=== PATIENT | female | born 1940 | race Caucasian/White ===

== ENCOUNTER → 2016-10-18 | Outpatient (CLI) | payer OTHER ==
[~2016-10-18] MED LIST: ALBU1AER9 INH; ATRINS NEB; ATV/1 PO; ATVUNK PO; AZITTAB PO; CLR10 PO; COLE1TAB PO; FERR1TAB13 PO; FERR325T51 PO; FLVHFA110 INH; FOLI400T18 PO; HYDR-4079 PO; LEVO112T4 PO; LPR25 PO; MAGN500C PO; METH500T37 PO; METO-217 PO; METO50TA16 PO; METO50TA17 PO; MOME1AER5 INH; ONDA4TAB46 PO; OXGN; PANT1TAB48 PO; POTA-331 PO; POTA10CA28 PO; PRAM0.129 PO; PRAM1TAB52 PO; QUET1TAB30 PO; TIZA2CAP PO; TORS10TA14 PO; ULT50X PO; XRL20 PO; [UNRECOGNIZED DRUG - CODE] PO
--- NOTE | 2016-10-18 11:05 | DIAGNOSTIC IMAGING REPORT ---
THYROID ULTRASONOGRAPHY CLINICAL HISTORY: DYSPHAGIA COMPARISON STUDY: 02/19/2012 FINDINGS: The patient is status post a right lobe thyroidectomy. No residual thyroid tissue is visualized. The left lobe measures 3.9 x 1.5 x 1.1 cm. No left-sided thyroid nodules are visualized. IMPRESSION: 1. Ultrasonographically normal left lobe of the thyroid 2. Surgically absent right lobe of the thyroid Electronically signed by: Eder Johnson M.D. 10/18/2016 11:04 AM Dictated Date/Time: 10/18/2016 11:02 AM
--- NOTE | 2016-10-18 11:38 | DIAGNOSTIC IMAGING REPORT ---
(BARIUM SWALLOW) ESOPHAGUS CLINICAL HISTORY: DYSPHAGIA COMPARISON STUDY: 05/19/2013 FLUOROSCOPY TIME: 1.2 minutes. FINDINGS: Patient is a [place] function well. No evidence for aspiration. Trace penetration. A single diverticulum relatively small. Esophageal dysmotility and spasm. Small hiatal hernia. Mild gastroesophageal reflux. IMPRESSION: 1. Small Zenker's diverticulum. 2. Mild generalized esophageal spasm and/or irritability. 3. Small hiatal hernia with mild reflux Electronically signed by: Esau Zapata M.D. 10/18/2016 11:37 AM Dictated Date/Time: 10/18/2016 11:31 AM
== END | disposition home or self-care (01) ==
LOC: C.ULTR 10:00
DX: R13.10 Dysphagia, unspecified (principal)

== ENCOUNTER → 2017-01-14 | Outpatient (CLI) | payer OTHER ==
--- NOTE | 2017-01-14 13:39 | DIAGNOSTIC IMAGING REPORT ---
ULTRASOUND BILATERAL LOWER EXTREMITY VENOUS CLINICAL HISTORY: Hypoxia. Pulmonary artery hypertension. COMPARISON STUDY: No priors. TECHNIQUE: Real-time, grayscale, and color Doppler sonography of the deep veins of the right and left lower extremity was performed from the inguinal crease to the calf. Compression and augmentation were utilized. FINDINGS: There is no sonographic evidence of deep venous thrombosis identified in the right or left lower extremity. The common femoral, superficial femoral, and popliteal veins are patent and normally compressible bilaterally. The greater saphenous vein and the profunda femoris vein at the junction with the common femoral vein are clear in both legs. The visualized calf veins are patent bilaterally. IMPRESSION: There is no sonographic evidence of deep venous thrombosis identified in the right or left lower extremity. Electronically signed by: Rudi Aguiar M.D. 01/14/2017 1:38 PM Dictated Date/Time: 01/14/2017 1:37 PM
--- NOTE | 2017-01-18 09:48 | CODING QUERY MEDICAL NECESSITY ---
SUPPORTING DIAGNOSIS NEEDED Christian SALAZAR, A supporting diagnosis is required for the test/procedure performed on this patient in order for us to be reimbursed by the patient's insurance. Please provide a supporting diagnosis for the following test/procedure listed below next to the test name along with your signature. *If there is no additional diagnosis for this patient that would support the following test/procedure please document that below next to the test/procedure. Test(s)/Procedure(s) that require a supporting diagnosis: * ([id number]) VENOUS DOPPLER LOWER EXT BILAT DIAGNOSIS: DATE OF SERVICE: 01/14/17 Provider Signature: Date: Thank you Jaime Ceballos [facility] Information Management Once completed, please kindly fax back to [phone] For questions please call [phone]
== END | disposition home or self-care (01) ==
LOC: C.ULTR 11:50
PROVIDERS: ATTEND Physician Assistant
DX: I27.2 Other secondary pulmonary hypertension (principal); Z99.81 Dependence on supplemental oxygen

== ENCOUNTER → 2017-01-17 | Outpatient (CLI) | payer OTHER ==
[~2017-01-17] MED LIST changes: +OPTIRAY 320 IV PRN
--- NOTE | 2017-01-17 14:25 | DIAGNOSTIC IMAGING REPORT ---
CT ANGIOGRAM OF THE CHEST CLINICAL HISTORY: Difficulty breathing. Shortness of breath. COMPARISON STUDY: 09/30/2015 TECHNIQUE: Following the IV administration of 93 mL of Optiray-320, CT angiogram of the thorax was performed from the thoracic inlet to the lung bases utilizing the pulmonary embolus protocol. Images are reviewed in the axial, sagittal, and coronal planes. IV contrast was administered without complication. MIP imaging was performed. CT DOSE: 570.84 mGycm FINDINGS: There is trace perihepatic fluid. There is reflux of contrast into the hepatic veins. This suggests elevated right heart pressures. There are minimally enlarged right hilar lymph nodes similar in appearance the prior study. Mediastinal lymph nodes remain the upper limits of normal in size. There is stable minimal outpouching of the lateral margin of the aortic arch. This remain stable There were no pulmonary artery filling defects to indicate acute pulmonary embolism. There is a small right pleural effusion. There are dependent right lower lobe airspace opacities, likely atelectatic. Minimal septal edema is suspected. IMPRESSION: 1. No evidence of acute pulmonary embolism 2. Prominent right hilar and mediastinal lymph nodes, unchanged from the prior study 3. Small right pleural effusion 4. Mild right basilar atelectasis 5. Suspected elevated right heart pressures Electronically signed by: Eder Johnson M.D. 01/17/2017 2:23 PM Dictated Date/Time: 01/17/2017 2:17 PM
--- NOTE | 2017-01-17 14:26 | ECHOCARDIOGRAM REPORT ---
*NOTICE TO RECEIVING [employer] This information is strictly Confidential and protected under [place] law. [place] law prohibits you from making any further disclosure of this information unless further disclosure is expressly permitted by the written consent of the person to whom it pertains or is authorized by law. A general authorization for the release of medical or other information is not sufficient for this purpose. Hospital accepts no responsibility if the information is made available to any other person, INCLUDING THE PATIENT. Interpretation Summary * Name: VANESSA PERRY Study Date: 01/17/2017 12:51 PM BP: 149/76 mmHg * Patient Location: [facility] HR: 66 * : 1940 (M/d/yyyy) Gender: Female Height: 63 in * Age: 76 yrs Ethnicity: CA Weight: 170 lb * Performed By: Aga Elizabeth RDCS * * Reason For Study: CAD, CHF, SOB * BSA: 1.8 m2 * -- Conclusions -- * 1. Normal LV size, mild concentric LVH. * 2. Low normal LV systolic function. LVEF 50-55%. Paradoxical septal motion consistent with post-op state. * 3. Grade II diastolic dysfunction. * 4. Moderately to severely dialted RV. Normal RV function. Severely dilated RA * 4. Well-seated bioprosthetic aortic valve with expected transvalvular gradients. No AI. * 5. Mild mitral regurgitation. * 6. Moderate to severe TR. * 7. Compared with prior study on 01/17/2017: RV now moderately to severely dilated. Procedure Details * A complete two-dimensional transthoracic echocardiogram was performed (2D, M-mode, Doppler and color flow Doppler). Left Ventricle * The left ventricle is grossly normal size. * There is mild concentric left ventricular hypertrophy. * Ejection Fraction = 50-55%. * Septal motion is consistent with post-operative state. Right Ventricle * The right ventricle is moderate to severely dilated. * The right ventricular systolic function is normal as assessed by tricuspid annular plane systolic excursion (TAPSE) (normal >1.5 cm). Atria * The left atrial size is normal. * The right atrium is severely dilated. * No ASD detected; PFO is not assessed. Mitral Valve * There is moderate mitral annular calcification. * Mitral stenosis is absent. * There is mild mitral regurgitation. Tricuspid Valve * The tricuspid valve is not well visualized, but is grossly normal. * There is no tricuspid stenosis. * There is moderate to severe tricuspid regurgitation. Aortic Valve * There is no significant aortic regurgitation. * There is a bioprosthetic aortic valve. * The prosthetic aortic valve is well-seated. * Bioprosthetic leaflets are not well visualized. * Normal expected transvalvular gradients. Pulmonic Valve * The pulmonary valve is inadequately visualized, but the Doppler data is adequate for interpretation. * There is no pulmonic valvular stenosis. * Trace pulmonic valvular regurgitation. Great Vessels * The aortic root and proximal ascending aorta are normal sized. Pericardium/Pleural * There is no pericardial effusion. Great Vessels * IVC < 2.1, <50% change with respiration. Est RA 8 mmHg. * There is no evidence of pulmonary hypertension. The PA systolic pressure is less than 36 mmHg. Left Ventricular Diastolic Function * Diastolic dysfunction, Grade II (pseudonormalization pattern). MMode 2D Measurements and Calculations IVSd 0.99 cm IVSs 1.5 cm LVIDd 3.5 cm LVIDs 2.6 cm LVPWd 1.3 cm LVPWs 1.7 cm IVS/LVPW 0.77 FS 27.7 % EDV(Teich) 52.6 ml ESV(Teich) 23.8 ml EF(Teich) 54.7 % EDV(cubed) 44.7 ml ESV(cubed) 16.9 ml EF(cubed) 62.2 % % IVS thick 56.5 % % LVPW thick 32.3 % LV mass(C)d 127.5 grams LV mass(C)dI 70.7 grams/m\S\2 LV mass(C)s 150.0 grams LV mass(C)sI 83.1 grams/m\S\2 SV(Teich) 28.7 ml SI(Teich) 15.9 ml/m\S\2 SV(cubed) 27.8 ml SI(cubed) 15.4 ml/m\S\2 Ao root diam 2.1 cm Ao root area 3.6 cm\S\2 LA dimension 4.0 cm LA/Ao 1.9 LVOT diam 1.9 cm LVOT area 2.9 cm\S\2 LVAd ap4 17.5 cm\S\2 LVLd ap4 6.8 cm EDV(MOD-sp4) 36.6 ml EDV(sp4-el) 38.2 ml LVAs ap4 11.0 cm\S\2 LVLs ap4 5.5 cm ESV(MOD-sp4) 19.4 ml ESV(sp4-el) 18.5 ml EF(MOD-sp4) 47.1 % EF(sp4-el) 51.7 % LVAd ap2 22.2 cm\S\2 LVLd ap2 6.9 cm EDV(MOD-sp2) 59.4 ml EDV(sp2-el) 60.9 ml LVAs ap2 14.4 cm\S\2 LVLs ap2 6.0 cm ESV(MOD-sp2) 31.1 ml ESV(sp2-el) 29.2 ml EF(MOD-sp2) 47.6 % EF(sp2-el) 52.1 % LVLd %diff 1.8 % EDV(MOD-bp) 46.6 ml LVLs %diff 7.9 % ESV(MOD-bp) 25.5 ml EF(MOD-bp) 45.4 % SV(MOD-sp4) 17.3 ml SI(MOD-sp4) 9.6 ml/m\S\2 SV(MOD-sp2) 28.3 ml SI(MOD-sp2) 15.7 ml/m\S\2 SV(MOD-bp) 21.2 ml SI(MOD-bp) 11.7 ml/m\S\2 SV(sp4-el) 19.8 ml SI(sp4-el) 10.9 ml/m\S\2 SV(sp2-el) 31.7 ml SI(sp2-el) 17.6 ml/m\S\2 Doppler Measurements and Calculations MV E max robe 115.9 cm/sec MV A max robe 77.1 cm/sec MV E/A 1.5 MV dec time 0.22 sec Ao V2 max 265.4 cm/sec Ao max PG 28.2 mmHg Ao max PG (full) 26.4 mmHg Ao V2 mean 194.9 cm/sec Ao mean PG 16.9 mmHg Ao mean PG (full) 16.1 mmHg Ao V2 VTI 67.7 cm HATTIE(I,A) 0.61 cm\S\2 HATTIE(I,D) 0.61 cm\S\2 HATTIE(V,A) 0.72 cm\S\2 HATTIE(V,D) 0.72 cm\S\2 LV V1 max PG 1.8 mmHg LV V1 mean PG 0.83 mmHg LV V1 max 67.0 cm/sec LV V1 mean 41.4 cm/sec LV V1 VTI 14.4 cm SV(Ao) 245.6 ml SI(Ao) 136.1 ml/m\S\2 SV(LVOT) 41.3 ml SI(LVOT) 22.9 ml/m\S\2 TR max robe 207.9 cm/sec
[2017-01-17 15:24] LABS: ISTAT CREATININE 0.7 mg/dl (0.6-1.3); ISTAT HEMOGLOBIN 13.6 g/dl (12.0-16.0); ISTAT IONIZED CALCIUM 1.05 mmol/l (1.12-1.32)
== END | disposition home or self-care (01) ==
LOC: C.CPL 12:39
PROVIDERS: ATTEND Physician Assistant
DX: R06.02 Shortness of breath (principal); R91.8 Other nonspecific abnormal finding of lung field; R09.02 Hypoxemia; I25.10 Atherosclerotic heart disease of native coronary artery without angina pectoris

== ENCOUNTER → 2017-03-06 | Outpatient (CLI) | payer OTHER ==
[~2017-03-06] MED LIST changes: -OPTIRAY 320 IV PRN
[2017-03-06 15:28] LABS: BASO % 0.5 %; BASO ABS # 0.03 K/uL (0-0.2); COMPLETE YES; EOS % 1.8 %; HEMATOCRIT 42.6 % (37-47); IG% 0.2 %; LYMPH % 24.6 %; LYMPH ABS # 1.35 K/uL (1.2-3.4); MEAN CELL VOLUME 86.2 fL (80-100); MEAN CORPUSCULAR HEMOGLOBIN 26.1 pg (25-34); MEAN CORPUSCULAR HGB CONC 30.3 g/dl (32-36); MONO % 17.9 %; PLATELET COUNT 233 K/uL (130-400); RED BLOOD COUNT 4.94 M/uL (4.2-5.4); WHITE BLOOD COUNT 5.48 K/uL (4.8-10.8)
[2017-03-06 15:37] LABS: ALT/SGPT 21 U/L (12-78); AST/SGOT 26 U/L (15-37); BLOOD UREA NITROGEN 13 mg/dl (7-18); CALCIUM 9.3 mg/dl (8.5-10.1); CARBON DIOXIDE 33 mmol/L (21-32); CHLORIDE 100 mmol/L (98-107); CREATININE 0.84 mg/dl (0.60-1.20); GLUCOSE 135 mg/dl (70-99); MAGNESIUM 2.1 mg/dl (1.8-2.4); POTASSIUM 3.4 mmol/L (3.5-5.1); SODIUM 138 mmol/L (136-145)
[2017-03-06 15:47] LABS: ALKALINE PHOSPHATASE 70 U/L (45-117)
== END | disposition home or self-care (01) ==
LOC: C.LABSPEC 14:49
PROVIDERS: ATTEND Family Medicine
DX: I10 Essential (primary) hypertension (principal)

== ENCOUNTER 2017-03-16 07:14 | Inpatient (IN) | payer OTHER ==
[2017-03-16] VITALS (7 sets, daily range): BP systolic 125–156; BP diastolic 82–102; PULSE 75–137; TEMP 36.8–37; O2SAT 91–98; Ht 160 cm; Wt 76.5 kg
[~2017-03-16] VITALS: Ht 160 cm; Wt 76.5 kg
[~2017-03-16 07:14] MED LIST changes: -ATV/1 PO; -COLE1TAB PO; -FERR1TAB13 PO; -FLVHFA110 INH; -METO50TA16 PO; -METO50TA17 PO; -ONDA4TAB46 PO; -POTA10CA28 PO; -PRAM1TAB52 PO; -QUET1TAB30 PO; -TIZA2CAP PO; -TORS10TA14 PO; -ULT50X PO; -XRL20 PO
[2017-03-16] MEDS ORDERED: SODIUM CHLORIDE 0.9% 1000ML 1,000 ML IV STA (07:39)
[2017-03-16] MEDS ORDERED: PROMETHAZINE HCL INJ 25 MG in SODIUM CHLORIDE 0.9% 50ML 50 ML IV STA (08:50)
--- NOTE | 2017-03-16 08:50 | DIAGNOSTIC IMAGING REPORT ---
PA CHEST RADIOGRAPH AND UPRIGHT AND SUPINE AP RADIOGRAPHS OF THE ABDOMEN CLINICAL HISTORY: Nausea, vomiting and abdominal pain. COMPARISON STUDY: Chest CT January 17, 2017. FINDINGS: There are median sternotomy wires and a prosthetic aortic valve. Mild cardiomegaly is unchanged. There is pulmonary vascular congestion. Trace right pleural effusion is present. There is no pneumothorax. No free air is present. There are cholecystectomy clips. A mildly dilated loop of small bowel with the left upper quadrant is noted, measuring 3.5 cm in caliber. IMPRESSION: 1. No free air. 2. Mildly dilated loop of small bowel with the left upper quadrant without convincing evidence for a bowel obstruction. 3. Pulmonary vascular congestion with a trace right pleural effusion. Electronically signed by: Herman Dumont M.D. 03/16/2017 8:49 AM Dictated Date/Time: 03/16/2017 8:46 AM
[2017-03-16 09:07] LABS: BASO % 0.1 %; BASO ABS # 0.01 K/uL (0-0.2); COMPLETE YES; HEMATOCRIT 48.7 % (37-47); IG% 0.2 %; LYMPH ABS # 1.28 K/uL (1.2-3.4); MEAN CELL VOLUME 82.5 fL (80-100); MEAN CORPUSCULAR HGB CONC 33.9 g/dl (32-36); MEAN PLATELET VOLUME 9.9 fL (7.4-10.4); MONO % 13.1 %; NEUT % 73.6 %; PLATELET COUNT 314 K/uL (130-400); WHITE BLOOD COUNT 9.87 K/uL (4.8-10.8)
[2017-03-16] MEDS ORDERED: FLVHFA110 INH (09:13)
[2017-03-16] MEDS ORDERED: FERR1TAB13 PO (09:13)
[2017-03-16] MEDS ORDERED: COLE1TAB PO (09:13)
[2017-03-16 09:17] LABS: BUN/CREATININE RATIO 17.8 (10-20); CALCIUM 9.8 mg/dl (8.5-10.1); CREATININE 0.67 mg/dl (0.60-1.20); POTASSIUM 2.8 mmol/L (3.5-5.1)
[2017-03-16] MEDS ORDERED: TIZA2CAP PO (09:19)
[2017-03-16] MEDS ORDERED: METO50TA16 PO (09:19)
[2017-03-16] MEDS ORDERED: POTA10CA28 PO (09:19)
[2017-03-16] MEDS ORDERED: TORS10TA14 PO (09:19)
[2017-03-16] MEDS ORDERED: PRAM1TAB52 PO (09:19)
[2017-03-16] MEDS ORDERED: ATV/1 PO (09:19)
[2017-03-16] MEDS ORDERED: ONDA4TAB46 PO (09:19)
[2017-03-16] MEDS ORDERED: METOPROLOL TARTRATE 1 MG/ML VIAL IV STA ×3 (09:26→12:13)
[2017-03-16 09:27] LABS: ALB/GLOB RATIO 0.9 (0.9-2); CKMB/CK RATIO 2.2 (0-3.0)
[2017-03-16] MEDS ORDERED: ONDANSETRON INJ 2 MG/ML 2 ML VIAL IV STA (10:14)
[2017-03-16] MEDS ORDERED: POTASSIUM CHLORIDE 10 MEQ / 100ML WTR IV STA (10:16)
--- NOTE | 2017-03-16 10:18 | EMERGENCY ROOM VISIT NOTE ---
ED Visit Note First contact with patient: 07:23 I have personally seen and evaluated the patient with the physician religious assistant. I agree with the diagnostic/management decisions and have personally been involved in these decisions and agree with the diagnosis.
[2017-03-16 10:25] LABS: URINE APPEARANCE CLEAR (CLEAR); URINE BILIRUBIN NEG (NEG); URINE COLOR YELLOW; URINE EPITHELIAL CELL AUTO >30 /lpf (0-5); URINE NITRITE NEG (NEG); URINE PH 8.5 (4.5-7.5); URINE SPECIFIC GRAVITY 1.016 (1.000-1.030); UROBILINOGEN NEG (NEG)
[2017-03-16 10:40] LABS: MANUAL MICROSCOPIC REQUIRED? NO; REVIEW REQ? YES; SULFASALICYLIC ACID POS (NEG)
--- NOTE | 2017-03-16 10:50 | DIAGNOSTIC IMAGING REPORT ---
CT OF THE HEAD WITHOUT CONTRAST CLINICAL HISTORY: Headache. Restless. Recent fall. COMPARISON STUDY: MRI of the brain October 01, 2015. CT DOSE: 638.56 mGycm TECHNIQUE: Helical axial images of the head were obtained without IV contrast. Automated exposure control was utilized for the study. A dose lowering technique was utilized adhering to the principles of ALARA. FINDINGS: No acute intracranial hemorrhage, midline shift or mass effect is present. Ventricular system is normal. Basilar cisterns are patent. There are no extra-axial collections. Extensive white matter hypodensities suggest small vessel disease. Allowing for differences in technique, this is similar to MRI of October 01, 2015. There are no findings to suggest acute dural sinus thrombosis or acute territorial infarct. There is no calvarial fracture. Visualized portions of the sinuses and mastoid air cells are clear. IMPRESSION: No acute intracranial findings. Electronically signed by: Herman Dumont M.D. 03/16/2017 10:49 AM Dictated Date/Time: 03/16/2017 10:46 AM
[2017-03-16] MEDS ORDERED: LORAZEPAM 2 MG/ML 1 ML VIAL IV STA (12:13)
[2017-03-16] MEDS ORDERED: ONDANSETRON INJ 2 MG/ML 2 ML VIAL IV PRN (13:00)
[2017-03-16] MEDS ORDERED: HydrALAZINE HCL 20 MG/ML VIAL IV PRN (13:00)
[2017-03-16] MEDS ORDERED: MAGNESIUM HYDROXIDE SUSP 30 ML UDC PO PRN (13:00)
[2017-03-16] MEDS ORDERED: ALBUT/IPRATROP 3MG/0.5MG NEB 3 ML VIAL INH PRN ×2 (13:00→13:30)
[2017-03-16] MEDS ORDERED: HYDROCODONE/ACETAMI 10/325 TAB PO PRN (13:00)
[2017-03-16] MEDS ORDERED: PROMETHAZINE HCL INJ 12.5 MG in SODIUM CHLORIDE 0.9% 50ML 50 ML IV PRN (13:00)
[2017-03-16] MEDS ORDERED: METOPROLOL TARTRATE 1 MG/ML VIAL IV PRN (13:00)
[2017-03-16] MEDS ORDERED: HALOPERIDOL LACTATE 5 MG/ML 1 ML VIAL IV STA (13:26)
[2017-03-16] MEDS ORDERED: LORAZEPAM 2 MG/ML 1 ML VIAL IV PRN ×2 (13:30)
[2017-03-16] MEDS ORDERED: HALOPERIDOL LACTATE 5 MG/ML 1 ML VIAL ONE (13:42)
--- NOTE | 2017-03-16 13:46 | History and Physical ---
History & Physical Date & Time of Service: Mar 16, 2017 at 13:36 Chief Complaint: Nausea,Vomit Primary Care Physician: Angela Barajas MD History of Present Illness 77-year-old female brought in for nausea vomiting fall increased confusion. The patient typically has an oxygen dependent COPD patient who has a history of diastolic heart failure, lupus arthritis and has multiple when necessary medications at home for pain and muscle spasm. Most recently due to a functional decline her primary care physician institute hospice therapy. This was not started planning to be started on the . The patient's daughter visited from [place] found her mother to be in the increasing confused state, lethargic, having nausea and vomiting unable to walk safely with a fall and brought into the emergency department for evaluation. In the emergency department the patient was found to have atrial fibrillation rapid ventricular response elevated troponin was confused and agitated frequently removing her oxygen and becoming hypoxic hyponatremic hypokalemic and not oriented to time. She'll be admitted to evaluate her elevated troponin encephalopathy and likely polypharmacy. 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, previous history of atrial fibrillation, COPD, pulmonary hypertension, aortic valve replacement 2010, depression, abdominal hysterectomy, cholecystectomy, Yin 's thyroiditis now with hypothyroidism Family History No pertinent family history Family history is positive or COPD and heart disease Social History Smoking Status: Former Smoker Marital Status: Housing status: lives alone Occupational Status: retired Immunizations History of Influenza Vaccine: No History of Tetanus Vaccine?: Yes History of Pneumococcal: No History of Hepatitis B Vaccine: Yes Multi-Drug Resistant Organisms History of MDRO: No Allergies Coded Allergies: Penicillins (Verified Allergy, Severe, HIVES,ANAPHYLAXIS, 03/16/17) Shellfish (Verified Allergy, Severe, DIFFICULTY SWALLOWING & HIVES, ) Clindamycin (Unverified Allergy, Unknown, UNKNOWN, 03/16/17) Pravastatin (Unverified Allergy, Unknown, UNKNOWN, 03/16/17) Rosuvastatin (Unverified Allergy, Unknown, UNKNOWN, 03/16/17) Ezetimibe (Verified Adverse Reaction, Mild, INTOLERANCE TO VYTORIN, ) Simvastatin (Verified Adverse Reaction, Mild, INTOLERANCE, 03/16/17) Home Medications Scheduled Colestipol Hcl (Colestid), 2 GM PO DAILY Ferrous Sulfate (Kp Ferrous Sulfate), 325 MG PO DAILY Fluticasone Propionate (Flovent Hfa), 1 PUFF INH BID Home O2 Therapy (Oxygen), 2 LITERS NA PRN Levothyroxine Sodium (Levothyroxine Sodium), 112 MCG PO QAM Loratadine (Claritin), 10 MG PO QAM Lorazepam (Ativan), 1 MG PO TID Magnesium Oxide (Mg Supplement (Magnesium), 500 MG PO BID Metoprolol Tartrate (Lopressor) (Lopressor), 50 MG PO BID Pantoprazole (Protonix), 40 MG PO BID Potassium Chloride (Micro-K Ext Rel), 20 MEQ PO BID Torsemide (Demadex), 5 MG PO DAILY Scheduled PRN Hydrocodone/Acetaminophen 10MG/325MG (Brogan 10MG/325MG), 1 TAB PO Q6 PRN for Pain Ipratropium [place] (Ipratropium [place]), 1 VIAL NEB QID PRN for Shortness of Breath Methocarbamol (Robaxin), 500 MG PO TID PRN for Pain Ondansetron Hcl (Zofran), 4 MG PO Q6H PRN for Nausea Pramipexole Dihydrochloride (Mirapex), 25 MG PO BID PRN for RLS Tizanidine (Zanaflex), 2 MG PO TID PRN for Muscle Spasms Torsemide (Demadex), 10-20 MG PO DAILY PRN for WEIGHT GAIN/SOB Review of Systems Review of systems unobtainable due to the patient's level of confusion, the daughter states the patient was more oriented yesterday but does have some gaps in her memory at times. When asked the patient says she has pain from her neck to her knees Physical Exam Vital Signs Date Time Temp Pulse Resp B/P (MAP) Pulse Ox O2 Delivery O2 Flow Rate FiO2 03/16/17 12:23 175/129 03/16/17 12:19 120 183/134 03/16/17 12:15 91 Nasal Cannula 3.0 03/16/17 12:14 113 19 03/16/17 12:01 183/134 03/16/17 11:44 114 20 91 03/16/17 11:30 195/137 03/16/17 11:29 180/137 03/16/17 11:14 116 17 94 03/16/17 10:49 126 194/137 03/16/17 10:48 194/137 03/16/17 10:46 140/113 03/16/17 10:14 131 16 03/16/17 10:13 117 20 140/113 95 Nasal Cannula 3.0 03/16/17 10:09 140/113 03/16/17 09:49 140 199/144 03/16/17 09:46 199/144 03/16/17 09:44 139 20 03/16/17 09:14 80 31 81 03/16/17 08:48 115 20 178/124 96 Nasal Cannula 3.0 03/16/17 08:45 178/124 03/16/17 08:14 132 30 93 03/16/17 08:08 128 18 189/130 95 Nasal Cannula 3.0 03/16/17 07:56 189/130 03/16/17 07:44 150 15 91 03/16/17 07:29 Nasal Cannula 2.0 03/16/17 07:28 37.0 120 20 175/120 95 Nasal Cannula 2.0 03/16/17 07:27 125 03/16/17 07:24 175/120 General Appearance: WD/WN, + moderate distress Head: normocephalic, atraumatic (no signs of injury from fall) Eyes: PERRL, EOMI ENT: hearing grossly normal, pharynx normal Neck: supple, trachea midline Respiratory/Chest: no respiratory distress, + decreased breath sounds Cardiovascular: + tachycardia, + irregularly irregular Abdomen/GI: normal bowel sounds, soft, + tenderness (left lower quadrant tenderness with current history of constipation) Back: normal inspection, + pertinent finding (right CVA tenderness) Extremities/Musculoskelatal: normal range of motion, + pedal edema (mild) Neurologic/Psych: alert, + depressed affect, + disoriented, + pertinent finding (appears agitated and bewildered) Skin: normal color, warm/dry, no rash Diagnostics Laboratory Results Results Past 24 Hours Test 03/16/17 07:20 03/16/17 08:05 Range/Units Urine Color YELLOW Urine Appearance CLEAR CLEAR Urine pH 8.5 4.5-7.5 Urine Specific [place] 1.016 1.000-1.030 Urine Protein 1+ NEG Urine Glucose (UA) TRACE NEG Urine Ketones 2+ NEG Urine Occult Blood 2+ NEG Urine Nitrite NEG NEG Urine Bilirubin NEG NEG Urine Urobilinogen NEG NEG Urine Leukocyte Esterase NEG NEG Urine WBC (Auto) 1-5 0-5 /hpf Urine RBC (Auto) 0-4 0-4 /hpf Urine Hyaline Casts (Auto) 1-5 0-5 /lpf Urine Epithelial Cells (Auto) >30 0-5 /lpf Urine Bacteria (Auto) NEG NEG Urine Renal Epithelial Cells 0-5 /lpf White Blood Count 9.87 4.8-10.8 K/uL Red Blood Count 5.90 4.2-5.4 M/uL Hemoglobin 16.5 12.0-16.0 g/dL Hematocrit 48.7 37-47 % Mean Corpuscular Volume 82.5 80-100 fL Mean Corpuscular Hemoglobin 28.0 25-34 pg Mean Corpuscular Hemoglobin Concent 33.9 32-36 g/dl Platelet Count 314 130-400 K/uL Mean Platelet Volume 9.9 7.4-10.4 fL Neutrophils (%) (Auto) 73.6 % Lymphocytes (%) (Auto) 13.0 % Monocytes (%) (Auto) 13.1 % Eosinophils (%) (Auto) 0.0 % Basophils (%) (Auto) 0.1 % Neutrophils # (Auto) 7.27 1.4-6.5 K/uL Lymphocytes # (Auto) 1.28 1.2-3.4 K/uL Monocytes # (Auto) 1.29 0.11-0.59 K/uL Eosinophils # (Auto) 0.00 0-0.5 K/uL Basophils # (Auto) 0.01 0-0.2 K/uL RDW Standard Deviation 47.8 36.4-46.3 fL RDW Coefficient of Variation 15.9 11.5-14.5 % Immature Granulocyte % (Auto) 0.2 % Immature Granulocyte # (Auto) 0.02 0.00-0.02 K/uL Sodium Level 129 136-145 mmol/L Potassium Level 2.8 3.5-5.1 mmol/L Chloride Level 88 98-107 mmol/L Carbon Dioxide Level 30 21-32 mmol/L Anion Gap 11.0 3-11 mmol/L Blood Urea Nitrogen 12 7-18 mg/dl Creatinine 0.67 0.60-1.20 mg/dl Est Creatinine Clear Calc Drug Dose 65.5 ml/min Estimated GFR () 96.9 Estimated GFR (Non- 83.6 BUN/Creatinine Ratio 17.8 10-20 Random Glucose 150 70-99 mg/dl Calcium Level 9.8 8.5-10.1 mg/dl Total Bilirubin 2.0 0.2-1 mg/dl Aspartate Amino Transf (AST/SGOT) 71 15-37 U/L Alanine Aminotransferase (ALT/SGPT) 50 12-78 U/L Alkaline Phosphatase 73 45-117 U/L Total Creatine Kinase 173 26-192 U/L Creatine Kinase MB 3.8 0.5-3.6 ng/ml Creatine Kinase MB Ratio 2.2 0-3.0 Troponin I 0.969 0-0.045 ng/ml Total Protein 9.9 6.4-8.2 gm/dl Albumin 4.8 3.4-5.0 gm/dl Globulin 5.1 2.5-4.0 gm/dl Albumin/Globulin Ratio 0.9 0.9-2 Amylase Level 41 25-115 U/L Lipase 139 73-393 U/L Microbiology Results 03/16/17 Blood Culture, Ordered Pending 03/16/17 Blood Culture, Ordered Pending Diagnostic Radiology Notable labs are hyponatremia 129 hypokalemia 2.8 troponin 0.09 normal renal function mildly elevated carbon dioxide normal white count normal white count and normal platelets abnormal urinalysis other (changes of COPD no infiltrate) other (atrial fibrillation rapid ventricular response) Impression Assessment and Plan 77-year-old female with encephalopathy elevated troponin atrial fib RVR oxygen- dependent COPD For the encephalopathy will rule out urinary source and start ciprofloxacin therapy urine and blood cultures are pending, polypharmacy could also be a cause we will hold her Robaxin and Mirapex Zanaflex and scheduled Ativan as well as when necessary hydrocodone. When necessary Ativan will be used as long as at bedtime Seroquel and the patient was given a dose of IV Haldol in the emergency department. Atrial fibrillation is unclear whether the patient's taking her home metoprolol dose this will be maintained and continue with when necessary metoprolol for rate control. Enoxaparin 1 mg/kg every 12 the use for thromboembolic prevention. Baby aspirin also be given. Elevated troponin may be supply demand due to her rapid rate and also her noncompliance with her oxygen with hypoxia we will trend this enzymes Acute on chronic hypoxic respiratory failure reinforcing supplemental oxygen use scheduled and when necessary nebulizers we'll not use of steroids at this time no concern for concurrent bronchitis Chronic diastolic heart failure with valvular replacement 2010 we'll reinstitute her Demadex on the holding it for 1 day watching for volume overload and respiratory distress Hyponatremia, the patient be given normal saline a random urine sodium be taken to determine if this could be SIADH from her medications for infection Hypokalemia this will be repleted as well as magnesium Case management will be utilized both PT OT eval to determine if this patient states return home once her encephalopathy clears Full dose enoxaparin is currently used for DVT prevention Advanced Directives Existing Living Will: Yes Existing Power of Brake Engineer: Yes VTE Prophylaxis VTE Risk Assessment Done? Y/N: Yes Risk Level: Moderate Given or contraindicated: Enoxaparin (Lovenox)SQ
[2017-03-16] MEDS ORDERED: LORAZEPAM 1 MG TAB PO SCH (14:00)
[2017-03-16] MEDS ORDERED: ALBUT/IPRATROP 3MG/0.5MG NEB 3 ML VIAL INH SCH (16:00)
[2017-03-16] MEDS ORDERED: MAGNESIUM SULFATE 1GM / D5W 1 GM in PREMIXED IN D5W 100 ML IV ONE (16:00)
[2017-03-16] MEDS: SODIUM CHLORIDE 0.9% 1000ML 1,000 ML IV SCH (16:49)
[2017-03-16] MEDS: POTASSIUM CHLR 10 MEQ / WTR 10 MEQ in PREMIXED WATER 100 ML IV SCH ×3 (16:49→18:00)
[2017-03-16] MEDS: METOPROLOL TARTRATE 50 MG TAB PO SCH ×2 (16:49→20:48)
[2017-03-16] MEDS: CIPROFLOXACIN / D5W 400 MG in PREMIXED IN D5W 200 ML IV SCH (16:49)
[2017-03-16] MEDS: ENOXAPARIN 80 MG/0.8 ML SYR SQ SCH (16:52)
[2017-03-16] MEDS ORDERED: MoRPHine SULFATE 4 MG/ML 1 ML CARP\\VIAL IV PRN (17:00)
[2017-03-16] MEDS: MoRPHine SULFATE 2 MG/ML CARP IV PRN (17:06)
[2017-03-16] MEDS: ACETAMINOPHEN 325 MG TAB PO PRN (17:29)
[2017-03-16] MEDS: ALBUT/IPRATROP 3MG/0.5MG NEB 3 ML VIAL INH SCH (19:00)
[2017-03-16] MEDS: POTASSIUM CHLORIDE 10 MEQ TABCR PO SCH (20:46)
[2017-03-16] MEDS: QUETIAPINE FUMARATE 25 MG TAB PO SCH (20:47)
[2017-03-16] MEDS: PANTOprazole SOD 40 MG TAB PO SCH (20:47)
[2017-03-16] MEDS ORDERED: METOPROLOL TARTRATE 50 MG TAB PO SCH (21:00)
[2017-03-17] VITALS (13 sets, daily range): BP systolic 107–151; BP diastolic 68–91; PULSE 74–107; TEMP 36.5–37.1; O2SAT 92–97
[2017-03-17 03:15] LABS: HEMATOCRIT 47.3 % (37-47); MEAN CELL VOLUME 82.4 fL (80-100); MEAN CORPUSCULAR HEMOGLOBIN 27.5 pg (25-34); MEAN CORPUSCULAR HGB CONC 33.4 g/dl (32-36); PLATELET COUNT 312 K/uL (130-400); RED BLOOD COUNT 5.74 M/uL (4.2-5.4); WHITE BLOOD COUNT 10.91 K/uL (4.8-10.8)
[2017-03-17 03:38] LABS: BUN/CREATININE RATIO 22.7 (10-20); CALCIUM 8.6 mg/dl (8.5-10.1); CREATININE 0.84 mg/dl (0.60-1.20); MAGNESIUM 2.2 mg/dl (1.8-2.4); POTASSIUM 3.4 mmol/L (3.5-5.1)
[2017-03-17 03:44] LABS: INR 1.2 (0.9-1.1); PARTIAL THROMBOPLASTIN RATIO 1.3; PROTHROMBIN TIME (PATIENT) 13.4 SECONDS (9.0-12.0)
[2017-03-17] MEDS: CIPROFLOXACIN / D5W 400 MG in PREMIXED IN D5W 200 ML IV SCH ×2 (04:07→16:38)
[2017-03-17] MEDS: SODIUM CHLORIDE 0.9% 1000ML 1,000 ML IV SCH (04:08)
[2017-03-17] MEDS: METOPROLOL TARTRATE 50 MG TAB PO SCH ×3 (04:41→21:00)
[2017-03-17] MEDS: ALBUT/IPRATROP 3MG/0.5MG NEB 3 ML VIAL INH SCH ×4 (07:12→18:57)
[2017-03-17] MEDS: POTASSIUM CHLR 10 MEQ / WTR 10 MEQ in PREMIXED WATER 100 ML IV SCH ×2 (08:36→08:45)
[2017-03-17] MEDS: ASPIRIN 81 MG ECTAB PO SCH (08:36)
[2017-03-17] MEDS: ENOXAPARIN 80 MG/0.8 ML SYR SQ SCH ×2 (08:37→20:59)
[2017-03-17] MEDS: PANTOprazole SOD 40 MG TAB PO SCH ×2 (08:37→21:00)
[2017-03-17] MEDS: TORSEMIDE 20 MG TAB PO SCH (08:37)
[2017-03-17] MEDS: POTASSIUM CHLORIDE 10 MEQ TABCR PO SCH ×2 (08:37→20:59)
[2017-03-17] MEDS: OXYCODONE HCL IR 5 MG TAB (IMMEDIATE RELEASE) PO PRN ×2 (08:49→17:20)
[2017-03-17] MEDS ORDERED: LEVOTHYROXINE 112 MCG TAB PO SCH (09:00)
[2017-03-17] MEDS: MoRPHine SULFATE 2 MG/ML CARP IV PRN (10:55)
--- NOTE | 2017-03-17 15:55 | ECHOCARDIOGRAM REPORT ---
*NOTICE TO RECEIVING LIBERTARIAN AGENCY This information is strictly Confidential and protected under [place] law. [place] law prohibits you from making any further disclosure of this information unless further disclosure is expressly permitted by the written consent of the person to whom it pertains or is authorized by law. A general authorization for the release of medical or other information is not sufficient for this purpose. Hospital accepts no responsibility if the information is made available to any other person, INCLUDING THE PATIENT. Interpretation Summary * Name: VANESSA PERRY Study Date: 03/17/2017 06:32 AM BP: 151/91 mmHg * Patient Location: C.2T\S\S238\S\2 HR: 74 * : 1940 (M/d/yyyy) Gender: Female Height: 63 in * Age: 77 yrs Ethnicity: CA Weight: 162 lb * Ordering Physician: Cachorro Horowitz * Performed By: Coreen Yoder * * Reason For Study: A-FIB * BSA: 1.8 m2 * Normal left ventricular systolic function. * Mild concentric left ventricular hypertrophy. * Type II left ventricular diastolic dysfunction. * Biatrial dilatation. * Mild right ventricular dilatation and mild RV systolic dysfunction. * Properly functioning bioprosthetic aortic valve. * Mild pulmonic regurgitation. * Mild mitral regurgitation. * Severe tricuspid regurgitation. * MIldly elevated estimated right ventricular systolic pressure. * No significant changes from echocardiogram of 01/17/17. Procedure Details * A complete two-dimensional transthoracic echocardiogram was performed (2D, M-mode, Doppler and color flow Doppler). Left Ventricle * The left ventricle is normal in size. * There is mild concentric left ventricular hypertrophy. * Ejection Fraction = 55-60%. * Left ventricular systolic function is normal. * A full diastolic examination was done with clinical findings of Class II diastolic dysfunction. * Septal motion is consistent with post-operative state. Right Ventricle * The right ventricle is mildly dilated. * The right ventricular systolic function is reduced as assessed by tricuspid annular plane systolic excursion (TAPSE) (TAPSE <1.6 cm). * The right ventricular systolic function is mildly reduced. Atria * The left atrium is mildly dilated. * The right atrium is moderately dilated. * No ASD detected; PFO is not assessed. Mitral Valve * There is moderate to severe mitral annular calcification. * There is no mitral valve stenosis. * There is mild mitral regurgitation. Tricuspid Valve * The tricuspid valve is not well visualized, but is grossly normal. * There is no tricuspid stenosis. * There is severe tricuspid regurgitation. * Right ventricular systolic pressure is elevated at 30-40mmHg. Aortic Valve * No aortic regurgitation is present. * There is a bioprosthetic aortic valve. * The prosthetic aortic valve is well-seated. * The gradient is normal for this prosthetic aortic valve. Pulmonic Valve * The pulmonary valve is inadequately visualized, but the Doppler data is adequate for interpretation. * The pulmonic valve is not well visualized. * There is no pulmonic valvular stenosis. * Mild pulmonic valvular regurgitation. Great Vessels * The aortic root is normal size. * Normal inferior vena cava diameter and respiratory variation suggests normal central venous pressure. MMode 2D Measurements and Calculations IVSd 1.2 cm IVSs 1.5 cm LVIDd 4.0 cm LVIDs 2.7 cm LVPWd 1.2 cm LVPWs 1.8 cm IVS/LVPW 1.0 FS 32.3 % EDV(Teich) 70.3 ml ESV(Teich) 27.4 ml EF(Teich) 61.1 % EDV(cubed) 64.3 ml ESV(cubed) 20.0 ml EF(cubed) 68.9 % % IVS thick 25.5 % % LVPW thick 55.0 % LV mass(C)d 163.1 grams LV mass(C)dI 92.3 grams/m\S\2 LV mass(C)s 167.4 grams LV mass(C)sI 94.7 grams/m\S\2 SV(Teich) 42.9 ml SI(Teich) 24.3 ml/m\S\2 SV(cubed) 44.3 ml SI(cubed) 25.1 ml/m\S\2 Ao root diam 2.7 cm Ao root area 5.7 cm\S\2 ACS 0.80 cm LA dimension 4.1 cm asc Aorta Diam 3.2 cm LA/Ao 1.5 LVOT diam 1.3 cm LVOT area 1.4 cm\S\2 LVAd ap4 25.8 cm\S\2 LVLd ap4 6.5 cm EDV(MOD-sp4) 83.7 ml EDV(sp4-el) 87.4 ml LVAs ap4 15.2 cm\S\2 LVLs ap4 5.2 cm ESV(MOD-sp4) 37.1 ml ESV(sp4-el) 38.1 ml EF(MOD-sp4) 55.7 % EF(sp4-el) 56.3 % LVAd ap2 21.0 cm\S\2 LVLd ap2 6.0 cm EDV(MOD-sp2) 61.3 ml EDV(sp2-el) 62.5 ml LVAs ap2 13.7 cm\S\2 LVLs ap2 5.8 cm ESV(MOD-sp2) 27.2 ml ESV(sp2-el) 27.6 ml EF(MOD-sp2) 55.6 % EF(sp2-el) 55.9 % LVLd %diff -7.81 % EDV(MOD-bp) 73.3 ml LVLs %diff 10.4 % ESV(MOD-bp) 33.7 ml EF(MOD-bp) 54.1 % SV(MOD-sp4) 46.6 ml SI(MOD-sp4) 26.4 ml/m\S\2 SV(MOD-sp2) 34.1 ml SI(MOD-sp2) 19.3 ml/m\S\2 SV(MOD-bp) 39.7 ml SI(MOD-bp) 22.4 ml/m\S\2 SV(sp4-el) 49.2 ml SI(sp4-el) 27.8 ml/m\S\2 SV(sp2-el) 35.0 ml SI(sp2-el) 19.8 ml/m\S\2 Doppler Measurements and Calculations MV E max robe 113.6 cm/sec MV A max robe 53.2 cm/sec MV E/A 2.1 MV dec time 0.16 sec Ao V2 max 253.0 cm/sec Ao max PG 25.7 mmHg Ao max PG (full) 21.2 mmHg Ao V2 mean 173.8 cm/sec Ao mean PG 14.4 mmHg Ao mean PG (full) 12.3 mmHg Ao V2 VTI 53.1 cm HATTIE(I,A) 0.59 cm\S\2 HATTIE(I,D) 0.59 cm\S\2 HATTIE(V,A) 0.59 cm\S\2 HATTIE(V,D) 0.59 cm\S\2 LV V1 max PG 4.5 mmHg LV V1 mean PG 2.1 mmHg LV V1 max 105.8 cm/sec LV V1 mean 63.8 cm/sec LV V1 VTI 22.5 cm MR max robe 273.5 cm/sec MR max PG 29.9 mmHg SV(Ao) 304.1 ml SI(Ao) 172.0 ml/m\S\2 SV(LVOT) 31.5 ml SI(LVOT) 17.8 ml/m\S\2 PA V2 max 52.8 cm/sec PA max PG 1.1 mmHg PI end-d robe 68.9 cm/sec TR max robe 288.9 cm/sec
--- NOTE | 2017-03-17 17:01 | Progress Note ---
Subjective Date of Service: Mar 17, 2017. Subjective Pt evaluation today including: conversation w/ patient, conversation w/ family , physical exam, chart review, lab review, review of studies, review of inpatient medication list Referral some irritative in Still catheter, otherwise feeling good, totally awake and alert and orientated, conversational, chronic O2 dependent, taking oxygen at home, no other complaint Problem List Medical Problems: (1) Hypertensive urgency Status: Acute Review of Systems Constitutional: + weakness, + fatigue, No fever, No chills, No sweats, No weight loss, No problem reported Eyes: No worsening of vision, No eye pain, No redness, No discharge, No diplopia ENT: No hearing loss, No unusual epistaxis, No nasal symptoms, No sore throat, No tinnitus, No dental problems, No trouble swallowing Respiratory: No cough, No sputum, No wheezing, No shortness of breath, No dyspnea on exertion, No dyspnea at rest, No hemoptysis Cardiac: No chest pain, No orthopnea, No PND, No edema, No claudication, No palpitations Abdomen: No pain, No nausea, No vomiting, No diarrhea, No constipation Musculoskeletal: No joint pain, No muscle pain, No swelling, No calf pain Female : + dysuria, No urinary frequency, No hematuria, No incontinence, No abnormal vaginal bleeding, No vaginal discharge Neurologic: No memory loss, No paralysis, No weakness, No numbness/tingling, No vertigo, No balance problems Psychiatric: No depression symptoms, No anhedonism, No anxiety, No insomnia, No substance abuse Heme: No abnormal bleeding/bruising, No clotting problems, No swollen lymph nodes, No night sweats Endo: No fatigue, No excessive thirst, No excessive urination Skin: No rash, No itch, No new/changing skin lesions, No color change, No bleeding Objective Vital Signs Date Time Temp Pulse Resp B/P (MAP) Pulse Ox O2 Delivery O2 Flow Rate FiO2 03/17/17 16:02 Nasal Cannula 3.0 03/17/17 15:08 36.5 81 20 107/71 (83) 94 Nasal Cannula 2.0 03/17/17 14:24 75 16 97 Nasal Cannula 2.0 03/17/17 12:03 Nasal Cannula 3.0 03/17/17 11:22 37.1 103 18 123/73 (90) 94 Nasal Cannula 2.0 03/17/17 11:21 97 16 94 Nasal Cannula 2.0 03/17/17 08:02 Nasal Cannula 3.0 03/17/17 07:18 36.9 74 19 151/91 (111) 97 Nasal Cannula 3.0 03/17/17 07:12 74 16 97 Nasal Cannula 3.0 03/17/17 04:44 36.9 107 18 145/87 (106) 97 Nasal Cannula 3.0 03/17/17 04:23 92 Room Air 3.0 03/17/17 00:00 92 Room Air 3.0 03/16/17 23:45 36.9 75 16 142/92 (109) 98 Nasal Cannula 3.0 03/16/17 20:00 92 Room Air 3.0 03/16/17 19:34 37.0 90 18 125/82 (96) 92 Room Air 03/16/17 19:03 105 14 96 Nasal Cannula 3.0 03/16/17 17:30 108 Physical Exam General Appearance: WD/WN, no apparent distress Eyes: normal inspection, PERRL, EOMI, sclerae normal ENT: normal ENT inspection, hearing grossly normal, pharynx normal Neck: supple, no adenopathy, thyroid normal, no JVD, no carotid bruits, trachea midline Respiratory/Chest: chest non-tender, lungs clear, normal breath sounds, no respiratory distress, no accessory muscle use Cardiovascular: no edema, no gallop, no JVD, no murmur, + irregularly irregular Abdomen: normal bowel sounds, non tender, soft, no organomegaly, no pulsatile mass Extremities: normal range of motion, non-tender, normal inspection, no pedal edema, no calf tenderness, normal capillary refill, pelvis stable Neurologic/Psychiatric: instructor flying II-XII nml as tested, no motor/sensory deficits, alert, normal mood/affect, oriented x 3 Skin: normal color, warm/dry, no rash Lymphatic: no adenopathy Laboratory Results Last 24 Hours Test 03/16/17 17:20 03/16/17 19:12 03/17/17 02:46 03/17/17 15:22 Urine Random Sodium 113 mEq/L Troponin I 1.110 ng/ml 0.805 ng/ml White Blood Count 10.91 K/uL Red Blood Count 5.74 M/uL Hemoglobin 15.8 g/dL Hematocrit 47.3 % Mean Corpuscular Volume 82.4 fL Mean Corpuscular Hemoglobin 27.5 pg Mean Corpuscular Hemoglobin Concent 33.4 g/dl RDW Standard Deviation 48.1 fL RDW Coefficient of Variation 16.1 % Platelet Count 312 K/uL Mean Platelet Volume 10.0 fL Prothrombin Time 13.4 SECONDS Prothromb Time International Ratio 1.2 Activated Partial Thromboplast Time 34.0 SECONDS Partial Thromboplastin Ratio 1.3 Sodium Level 133 mmol/L Potassium Level 3.4 mmol/L Chloride Level 95 mmol/L Carbon Dioxide Level 28 mmol/L Anion Gap 10.0 mmol/L Blood Urea Nitrogen 19 mg/dl Creatinine 0.84 mg/dl Est Creatinine Clear Calc Drug Dose 52.3 ml/min Estimated GFR () 76.6 Estimated GFR (Non- 66.1 BUN/Creatinine Ratio 22.7 Random Glucose 105 mg/dl Calcium Level 8.6 mg/dl Magnesium Level 2.2 mg/dl Total Bilirubin 1.9 mg/dl Direct Bilirubin 0.8 mg/dl Aspartate Amino Transf (AST/SGOT) 85 U/L Alanine Aminotransferase (ALT/SGPT) 63 U/L Alkaline Phosphatase 69 U/L Total Protein 7.8 gm/dl Albumin 3.6 gm/dl Thyroid Stimulating Hormone (TSH) 1.780 uIu/ml Assessment and Plan 77-year-old female admitted on 03/16/2017 with encephalopathy elevated troponin atrial fib RVR oxygen-dependent COPD encephalopathy etiology unknown Possible UTI, significantly improved his empiric treatment of ciprofloxacin t, follow-up urine as blood culture polypharmacy could also be a cause of mental status changes, hold her Robaxin and Mirapex Zanaflex and scheduled Ativan as well as when necessary hydrocodone. Atrial fibrillation was missed dose of home metoprolol d, continue metoprolol for rate control for now Admission physician has started Enoxaparin 1 mg/kg every 12 the use for thromboembolic prevention. Echo was ordered will follow-up echo results to reassess the CHARD2 score Elevated troponin likely from supply demand due to her rapid rate and also her noncompliance with her oxygen with hypoxia we will trend this enzymes Acute on chronic hypoxic respiratory failure reinforcing supplemental oxygen use scheduled and when necessary nebulizers we'll not use of steroids at this time no concern for concurrent bronchitis Chronic diastolic heart failure with valvular replacement 2010, has reinstitute her torsemide Echocardiogram was done, the results in below * Normal left ventricular systolic function. * Mild concentric left ventricular hypertrophy. * Type II left ventricular diastolic dysfunction. * Biatrial dilatation. * Mild right ventricular dilatation and mild RV systolic dysfunction. * Properly functioning bioprosthetic aortic valve. * Mild pulmonic regurgitation. * Mild mitral regurgitation. * Severe tricuspid regurgitation. * MIldly elevated estimated right ventricular systolic pressure. * No significant changes from echocardiogram of 01/17/17. Hyponatremia from 129 to 133, today's better, Hypokalemia this will be repleted as well as magnesium Discontinue Still catheter, increase activity, Case management PTOT Patient has a lot of bluish from her falsl in her skin, there area of bluish in her left upper arm, there is no any injuries on range of motion limitations so far, fall precaution Full dose enoxaparin is currently used for DVT prevention Discussed with patient, patient's daughter and son-in-law about a care plan answer all questions Need to talk to patient about the options of stroke prevention, arranged some NOVAc to home, patient live a lone by herself with frequent fall to be considered in the decision Continued [facility] stay due to: multiple IV medications needed Discharge planning: home
[2017-03-17] MEDS: POLYETHYLENE (MIRALAX) 17 GM PACK PO PRN (18:39)
[2017-03-17] MEDS: QUETIAPINE FUMARATE 25 MG TAB PO SCH (21:00)
[2017-03-18] VITALS (17 sets, daily range): BP systolic 109–161; BP diastolic 74–94; PULSE 68–98; TEMP 36.7–37.1; O2SAT 91–98
[2017-03-18] MEDS: CIPROFLOXACIN / D5W 400 MG in PREMIXED IN D5W 200 ML IV SCH (03:50)
[2017-03-18] MEDS: METOPROLOL TARTRATE 50 MG TAB PO SCH ×2 (05:57→08:13)
[2017-03-18] MEDS: MoRPHine SULFATE 2 MG/ML CARP IV PRN (05:59)
[2017-03-18 06:45] LABS: BUN/CREATININE RATIO 21.5 (10-20); CALCIUM 8.2 mg/dl (8.5-10.1); CREATININE 0.91 mg/dl (0.60-1.20); POTASSIUM 3.6 mmol/L (3.5-5.1)
[2017-03-18] MEDS: ALBUT/IPRATROP 3MG/0.5MG NEB 3 ML VIAL INH SCH ×4 (07:08→20:29)
--- NOTE | 2017-03-18 07:28 | Clinical Documentation Query ---
AUDREY Godfrey : CLINICAL DOCUMENTATION QUERY Patient is a 77 year old female presenting with nausea, vomiting, falls, increased confusion H&P noted "Elevated troponin may be supply demand due to her rapid rate and also her noncompliance with her oxygen with hypoxia". Serum troponin on admission of 0.969 ng/ml, increased to 1.110 ng/ml. EKG demonstrated inferior and anterolateral ST depression. He is being treated with ASA, Lopressor, Morphine, and is to be seen in consultation by cardiology. Echocardiogram demonstrated: * Normal left ventricular systolic function. * Mild concentric left ventricular hypertrophy. * Type II left ventricular diastolic dysfunction. * Biatrial dilatation. * Mild right ventricular dilatation and mild RV systolic dysfunction. * Properly functioning bioprosthetic aortic valve. * Mild pulmonic regurgitation. * Mild mitral regurgitation. * Severe tricuspid regurgitation. * MIldly elevated estimated right ventricular systolic pressure In your clinical opinion is this patient being managed for: ( x ) (Possible) NSTEMI, POA secondary to rapid atrial fibrillation, possible medication and/or O2 noncompliance. ( ) Myocardial necrosis ( ) Other explanation of clinical findings (Please Explain) ( ) Unable to determine (Please Define) ( ) Need to Discuss ( ) Not Agree The medical record reflects the following clinical findings, treatment, and risk factors. Clinical Indicators: As above Treatment:He is being treated with ASA, Lopressor, Morphine, and is to be seen in consultation by cardiology Risk Factors: Age, COPD, acute on chronic respiratory failure. O2 noncompliance, ?noncompliance with Lopressor, rapid atrial fibrillation, hypertension The five types of acute NV compose five separate situations that produce myocardial ischemia and myocardial-cell 1. A primary coronary event, such as plaque rupture or dissection. 2. A problem of oxygen supply and demand, such as coronary spasm, coronary embolism, arrhythmia, anemia, or hypotension. 3. Sudden cardiac that includes signs and symptoms of myocardial ischemia, such as ECG changes, but which produces before a blood sample can be obtained or when occurs during the lag period before serum markers appear in the blood. 4. Percutaneous coronary intervention. 5. Coronary artery bypass grafting. Please clarify and document your clinical opinion in the progress notes and discharge summary. Terms such as "probable", "suspected", "likely", "questionable", "possible", or "still to be ruled out" are acceptable. IF IN AGREEMENT, YOU MUST DOCUMENT ABOVE DIAGNOSTIC STATEMENT IN DAILY PROGRESS NOTES AND DISCHARGE SUMMARY. This document is not part of the patient's record. Thank You, Maynor Murry RN [phone]
[2017-03-18] MEDS ORDERED: ALUMINUM/MAGNESIUM SUSP 30 ML UDC ONE (08:06)
[2017-03-18] MEDS ORDERED: ALUMINUM/MAGNESIUM SUSP 30 ML UDC PO ONE (08:11)
[2017-03-18] MEDS: POTASSIUM CHLORIDE 10 MEQ TABCR PO SCH ×2 (08:13→20:22)
[2017-03-18] MEDS: ASPIRIN 81 MG ECTAB PO SCH (08:13)
[2017-03-18] MEDS: ACETAMINOPHEN 325 MG TAB PO PRN (08:13)
[2017-03-18] MEDS: POLYETHYLENE (MIRALAX) 17 GM PACK PO PRN (08:13)
[2017-03-18] MEDS: ENOXAPARIN 80 MG/0.8 ML SYR SQ SCH (08:13)
[2017-03-18] MEDS: PANTOprazole SOD 40 MG TAB PO SCH ×2 (08:14→20:19)
[2017-03-18] MEDS: TORSEMIDE 20 MG TAB PO SCH (08:14)
--- NOTE | 2017-03-18 09:36 | Medical Student: [facility] ---
Med Student Progress Note Date of Service Mar 18, 2017. Subjective Pt evaluation today including: conversation w/ patient, conversation w/ family , physical exam, chart review, lab review, review of studies Voiding: no voiding problems Patient examined sitting up in bed this morning. No acute events overnight. She reports that she is feeling well though she does still have back pain. She was able to sleep well overnight. Still d/c'ed this AM. Denies fever, chills, headache, dizziness, cp, palpitations, sob, abdominal pain, n/v/d, numbness/ tingling, calf pain. We discussed her current condition and her plans regarding hospice and answered all her questions. She was scheduled to begin hospice care on 03/18. No other complaints at this time. Review of Systems Constitutional: No fever, No chills Eyes: No worsening of vision, No diplopia ENT: No sore throat, No trouble swallowing Respiratory: No cough, No shortness of breath Cardiac: No chest pain, No palpitations Abdomen: No pain, No nausea, No vomiting, No diarrhea Musculoskeletal: No muscle pain, No calf pain Female : No dysuria, No incontinence Neurologic: No paralysis, No numbness/tingling Psychiatric: No depression symptoms, No anxiety Objective Vital Signs Date Time Temp Pulse Resp B/P (MAP) Pulse Ox O2 Delivery O2 Flow Rate FiO2 03/18/17 08:12 37.1 77 16 161/93 (115) 91 Nasal Cannula 2.0 03/18/17 08:05 96 Room Air 03/18/17 07:09 82 16 96 Nasal Cannula 2.0 03/18/17 04:13 37.0 84 16 128/82 (97) 92 Nasal Cannula 1.5 03/18/17 04:07 92 Room Air 3.0 03/18/17 00:17 92 Room Air 3.0 03/17/17 23:39 36.5 76 18 145/85 (105) 95 Nasal Cannula 1.5 03/17/17 20:14 92 Room Air 3.0 03/17/17 19:14 36.8 83 16 119/68 (85) 97 Nasal Cannula 2.0 03/17/17 16:02 Nasal Cannula 3.0 03/17/17 15:08 36.5 81 20 107/71 (83) 94 Nasal Cannula 2.0 03/17/17 14:24 75 16 97 Nasal Cannula 2.0 03/17/17 12:03 Nasal Cannula 3.0 03/17/17 11:22 37.1 103 18 123/73 (90) 94 Nasal Cannula 2.0 03/17/17 11:21 97 16 94 Nasal Cannula 2.0 Physical Exam General Appearance: + mild distress (exacerbated when moving left arm) Eyes: bilateral eyes normal inspection, bilateral eyes PERRL, bilateral eyes EOMI ENT: normal ENT inspection, hearing grossly normal, pharynx normal Neck: supple, no adenopathy, no carotid bruits Respiratory/Chest: lungs clear, normal breath sounds, no respiratory distress, no accessory muscle use Cardiovascular: regular rate, rhythm, + systolic murmur (2/6 systolic murmur) Abdomen: normal bowel sounds, non tender, soft Extremities: no pedal edema, no calf tenderness Neurologic/Psychiatric: no motor/sensory deficits, alert, oriented x 3 Skin: + pertinent finding (ecchymosis under left arm and along low back) Laboratory Results Last 24 Hours Test 03/17/17 15:22 03/18/17 05:43 Thyroid Stimulating Hormone (TSH) 1.780 uIu/ml Sodium Level 137 mmol/L Potassium Level 3.6 mmol/L Chloride Level 100 mmol/L Carbon Dioxide Level 30 mmol/L Anion Gap 7.0 mmol/L Blood Urea Nitrogen 20 mg/dl Creatinine 0.91 mg/dl Est Creatinine Clear Calc Drug Dose 49.1 ml/min Estimated GFR () 69.5 Estimated GFR (Non- 60.0 BUN/Creatinine Ratio 21.5 Random Glucose 112 mg/dl Calcium Level 8.2 mg/dl Assessment and Plan Assessment and Plan: This is a 77yo female with a history of lupus, COPD on home O2, diastolic CHF, biologic aortic valve replacement, and depression who was brought to the ED by her daughter after being found at home in a confused state. Upon admission to the hospital she was found to be in afib w/ RVR and with elevated troponin 0.969. Started on empiric ciprofloxacin. WBC wnl and afebrile. CT head negative. UA negative to date. CXR showed pulmonary vascular changes consistent with diastolic CHF and mild right-sided pleural effusion. EKG showed afib w/ RVR. Echo showed normal LV systolic function and type 2 diastolic dysfunction. She was scheduled to start on home hospice on 03/18. Plan 1. Encephalopathy, resolved, per patient's daughter the patient has returned to baseline cognition -stop empiric ciprofloxacin 400mg IV q12h -start ciprofloxacin 500mg PO BID -HOLD home Zanaflex, Mirapex, Robaxin and Oxycodone for suspected polypharmacy 2. Afib w/ RVR -increase metoprolol tartrate to 75mg PO BID (increased from 50mg BID on 03/18) -ASA 81mg PO daily -patient is stable for transfer to med/surg unit and no longer needs to be on telemetry 3. Diastolic CHF s/p biologic aortic valve replacement 2010 -torsemide 5mg PO daily -KCl 20meq IV daily 4. Lupus -tramadol 50mg PO q4h prn pain -stop IV morphine # COPD, on 2-3L O2 24hrs a day at home -albuterol/ipratropium QID # Constipation, last BM ~1week ago -Miralax 17g PO daily -milk of magnesia 30ml PO q12h # Insomnia -Seroquel 25mg QHS # Anxiety -Ativan 0.5mg PO TID # GERD -protonix 40mg BID # DVT prophylaxis -stop lovenox 70mg q12h -start xarelto 20mg PO daily # Discharge planning -Location: home with home health? -Date: TBD Continued [facility] stay due to: multiple IV medications needed Discharge planning: home
--- NOTE | 2017-03-18 11:03 | CARDIOLOGY CONSULTATION REPORT ---
DATE OF CONSULTATION: 03/18/2017 REASON FOR CONSULTATION: 1. Paroxysmal atrial fibrillation with RVR, status post spontaneous conversion to normal sinus rhythm. 2. Elevated troponin I level. HISTORY OF PRESENT ILLNESS: Ms. Wilcox is a 77-year-old white female with a history of long standing hypertension, systemic lupus erythematosus, GERD, dyslipidemia, oxygen-dependent COPD, pulmonary hypertension, right-sided CHF, valvular heart disease (status post bioprosthetic AVR in 2010, severe TR), hypothyroidism, type 2 diabetes mellitus, and nonobstructive CAD on cardiac catheterization (2010) who presented acutely to [facility] on 03/16/2017 for nausea, vomiting, increased confusion and a fall. The patient's daughter was visiting from [place] and found her mother to be in an increased confusional state, lethargic, and was unsteady on her feet. In the emergency room, she was noted to be AFib with RVR. She was hypoxemic, markedly hypokalemic, hyponatremic and had an elevated troponin I level. At the present time, the patient is being seen in room 238, bed 2, and she offers no complaints. She did not recall the details of her symptoms before coming in to the hospital. She denies any symptoms at the present time. She specifically denies any chest pain, heaviness, tightness, pressure, or discomfort. She has not had any further nausea or vomiting. She denies any shortness of breath, unusual dyspnea on exertion, orthopnea, or PND. She does not have any palpitations at the current time, but typically does with atrial fibrillation. She denies any syncope or loss of consciousness. The patient was likely hypokalemic because she takes a diuretic and has not been compliant with her supplemental potassium. The patient offers no other complaints. MEDICATIONS: 1. Torsemide 5 mg daily. 2. Aspirin 81 mg daily. 3. Protonix 40 mg b.i.d. 4. KCl 20 mEq b.i.d. 5. Seroquel 25 mg at bedtime. 6. Morphine sulfate 2 to 4 mg IV q. 4 hours p.r.n. for pain. 7. OxyIR 10 mg p.o. q. 6 hours p.r.n. for pain. 8. Lovenox 70 mg subcutaneous injection q. 12 hours. 9. IV Cipro 400 mg q. 12 hours. 10. Lopressor 50 mg p.o. q. 8 hours. 11. Lorazepam 0.5 to 1 mg every 4 hours as needed for anxiety. 12. Tylenol 650 mg p.o. q. 4 hours p.r.n. for pain or fever. 13. Milk of magnesia p.r.n. 14. Zofran p.r.n. 15. MiraLax 17 g daily. 16. DuoNeb nebulizers q. 2 hours p.r.n. for shortness of breath or wheezing. 17. Hydralazine 10 mg IV q. 4 hours p.r.n. for hypertension. 18. IV Lopressor 5 mg q. 4 hours p.r.n. for heart rate greater than 120. 19. Promethazine 12.5 mg IV q. 6 hours p.r.n. for nausea or vomiting. ALLERGIES: 1. PRAVASTATIN. 2. ROSUVASTATIN. 3. SIMVASTATIN. 4. SHELLFISH. 5. PENICILLIN. 6. ZETIA. 7. CLINDAMYCIN. PAST MEDICAL HISTORY: 1. Long standing hypertension. 2. Statin-intolerant dyslipidemia. 3. Oxygen-dependent COPD. 4. GERD. 5. History of nonobstructive CAD, on cardiac catheterization in 2010. 6. History of aortic valve disease, status post bioprosthetic AVR in 2010. 7. Severe TR. 8. RV systolic dysfunction, history of right-sided heart failure. 9. History of diastolic CHF. 10. Type 2 diabetes mellitus. 11. SLE. 12. History of iron-deficiency anemia. 13. Pulmonary hypertension. 14. Depression. 15. History of Yin's thyroiditis, no hypothyroid. 16. Status post hysterectomy. 17. History of status post cholecystectomy. SOCIAL HISTORY: The patient is . Does not use tobacco products. Does not drink alcohol. FAMILY HISTORY: Significant for heart disease and hypertension. PHYSICAL EXAMINATION: VITAL SIGNS: Temperature 36.1 degree Celsius, pulse 77 and regular, respiratory rate is 16 and unlabored, blood pressure is 160/93, SpO2 is 91% on 2 liters of oxygen nasal cannula. I and O's positive 1400 mL approximately total. Weight 76.5 kg. GENERAL: The patient is in no acute distress. HEENT: Head is atraumatic, normocephalic. EOMs intact. Sclerae are anicteric. Face is symmetric. No perioral cyanosis. Mucous membranes are moist. NECK: Without thyromegaly, adenopathy, or JVD. Jugular venous pressure is just above the clavicle, lying at a 45 degree angle. CHEST AND LUNGS: With diminished breath sounds throughout otherwise clear. No wheezes, rales, or rhonchi. CARDIOVASCULAR: S1 and S2 are regular with a grade 2/6 basal systolic murmur that radiates suprasternal notch and left sternal border. Grade 2-3/6 apical holosystolic murmur heard best in the left lower sternal border. No diastolic murmurs appreciated. No obvious gallop or rub. ABDOMINAL EXAM: Bowel sounds are present. EXTREMITIES: Without clubbing, cyanosis, or edema. Intact posterior tibial and radial pulses bilaterally. NEUROLOGIC EXAM: The patient is awake, alert and interactive. Answers questions appropriately. Speech is clear. Follows command. Normal movement in all 4 extremities. Gait pattern not assessed. EKG on admission shows atrial fibrillation with a ventricular response rate of 120 beats per minute, probable PVCs versus aberrantly conducted beats. Nonspecific ST-T wave abnormalities. EKG performed this morning shows a normal sinus rhythm with rate of 87 beats per minute with poor R-wave progression in leads V1 through V4, nonspecific T-wave abnormality with improved in the anterolateral leads. LABORATORY DATA: White blood cell count is 10.91. Hemoglobin is 15.8 g/dL, hematocrit 47.3%, and platelet count 312,000. Sodium is 137 mmol/L, potassium 3.6 mmol/L, BUN is 20 mg/dL, creatinine 0.91 mg/dL. TSH normal at 1.780. Serum magnesium yesterday was 2.2 mm/dL. Please note that her potassium on admission was 2.8 mmol/L. Troponin I levels are 0.805, 1.110, and 0.969 ng/mL. Total CK is 173 units per liter with a respective CK-MB of 3.8 ng/mL. Chest x-ray on admission shows pulmonary vascular congestion with trace right pleural effusion. Head CT scan shows no acute intracranial findings. Telemetry monitoring reveals conversion back to a normal sinus rhythm on 03/16/2017 at 1736. No significant pause was associated with this. ASSESSMENT: 1. Paroxysmal Atrial Fibrillation with rapid ventricular response, likely precipitated by hypokalemia. Elevated CHADSVAScv score. 2. Hyponatremia, improved. 3. Elevated troponin I level, likely secondary to atrial fibrillation with rapid ventricular response with hypoxia and underlying coronary artery disease. 4. History of bioprosthetic aortic valve replacement. 5. History of right-sided congestive heart failure. 6. History of diastolic congestive heart failure. 7. Severe tricuspid regurgitation. DIAGNOSIS: As mentioned above. PLAN: 1. Discussed with Dr. Roberson. 2. The patient has reverted back to a normal sinus rhythm. 3. Stressed the importance of taking potassium supplement as instructed, as she is on a loop diuretic. 4. Continue Lopressor 50 mg p.o. q. 8 hours. 5. Continue Aspirin 81 mg a day. 6. In light of her elevated CHADS-VASC, would recommend starting novel anticoagulant. Recommend Xarelto 20 mg daily upon discharge. 7. I had a long discussion with the patient regarding what atrial fibrillation is, the risk associated with it, and various management strategies. 8. Recommend ongoing oxygen supplementation. 9. Would not necessarily pursue ischemic workup at this time -- as she has not had any classic angina, and her echocardiogram shows preserved LV systolic function. 10. We will continue to follow. JUAN
[2017-03-18] MEDS ORDERED: TRAMADOL HCL 50 MG TAB PO PRN (15:15)
--- NOTE | 2017-03-18 16:40 | Progress Note ---
Subjective Date of Service: Mar 18, 2017. Subjective Pt evaluation today including: conversation w/ patient, conversation w/ family (daughter), physical exam, lab review, conversation w/ securities consultant, review of inpatient medication list Pain: no pain PO Intake: adequate Voiding: no voiding problems cleared by cardiology for discharge patient concerned, she is weak, lives alone discussed with daughter, she has concerns about safety she ambulated well today with therapy plan to transfer to medical floor, repeat therapy tomorrow discussed hospice, she has some conflicting issues as she does not want to be DNR but wants hospice I explained how these were conflicting plans but she wants to remain that way Problem List Medical Problems: (1) Hypertensive urgency Status: Acute Review of Systems Constitutional: + weakness, + fatigue All Other Systems: Reviewed and Negative Medications Current Inpatient Medications Medications (Trade) Dose Ordered Sig/Lara Route Start Time Stop Time Status Last Admin Dose Admin Pantoprazole Sodium (Protonix Tab) 40 mg BID PO 03/16/17 21:00 04/15/17 20:59 03/18/17 08:14 40 MG Potassium Chloride (Klor-Con M10) 20 meq BID PO 03/16/17 21:00 04/15/17 20:59 03/18/17 08:13 20 MEQ Torsemide (Demadex Tab) 5 mg DAILY PO 03/17/17 09:00 04/16/17 08:59 03/18/17 08:14 5 MG Acetaminophen (Tylenol Tab) 650 mg Q4H PRN PO 03/16/17 13:00 04/15/17 12:59 03/18/17 08:13 650 MG Magnesium Hydroxide (Milk Of Magnesia Susp) 30 ml Q12H PRN PO 03/16/17 13:00 04/15/17 12:59 03/18/17 11:18 30 ML Ondansetron HCl (Zofran Inj) 4 mg Q6H PRN IV 03/16/17 13:00 04/15/17 12:59 03/16/17 17:03 4 MG Polyethylene (Miralax Powder Packet) 17 gm DAILY PRN PO 03/16/17 13:00 04/15/17 12:59 03/18/17 08:13 17 GM Albuterol/ Ipratropium (Duoneb) 3 ml QIDR INH 03/16/17 16:00 04/15/17 15:59 03/18/17 15:13 3 ML Albuterol/ Ipratropium (Duoneb) 3 ml Q2H PRN INH 03/16/17 13:00 04/15/17 12:59 Aspirin (Ecotrin Tab) 81 mg QAM PO 03/17/17 09:00 04/16/17 08:59 03/18/17 08:13 81 MG Hydralazine HCl (HydrALAZINE INJ) 10 mg Q4H PRN IV 03/16/17 13:00 04/15/17 12:59 03/16/17 13:58 10 MG Promethazine HCl 12.5 mg/Sodium Chloride 50.5 ml @ 204 mls/hr Q6H PRN IV 03/16/17 13:00 04/15/17 12:59 Lorazepam (Ativan Inj) 0.5 mg Q4H PRN IV 03/16/17 13:30 04/15/17 13:29 Quetiapine Fumarate (seroQUEL TAB) 25 mg HS PO 03/16/17 21:00 04/15/17 20:59 03/17/17 21:00 25 MG Metoprolol Tartrate (Lopressor Tab) 75 mg BID PO 03/18/17 21:00 04/17/17 20:59 Ciprofloxacin (Cipro Tab) 500 mg BID PO 03/18/17 21:00 03/21/17 20:59 Tramadol HCl (Ultram Tab) 50 mg Q4H PRN PO 03/18/17 15:15 04/17/17 15:14 Rivaroxaban (Xarelto Tab) 20 mg QDD PO 03/18/17 16:45 04/17/17 16:44 Objective Vital Signs Date Time Temp Pulse Resp B/P (MAP) Pulse Ox O2 Delivery O2 Flow Rate FiO2 03/18/17 16:31 36.7 77 16 94 03/18/17 16:30 36.7 77 16 157/94 (115) 94 Room Air 03/18/17 16:14 96 Room Air 03/18/17 15:14 76 16 98 Nasal Cannula 2.0 03/18/17 12:50 96 Room Air 03/18/17 12:48 37.0 80 16 109/74 (86) 92 Room Air 03/18/17 11:20 68 16 92 Room Air 03/18/17 08:12 37.1 77 16 161/93 (115) 91 Nasal Cannula 2.0 03/18/17 08:05 96 Room Air 03/18/17 07:09 82 16 96 Nasal Cannula 2.0 03/18/17 04:13 37.0 84 16 128/82 (97) 92 Nasal Cannula 1.5 03/18/17 04:07 92 Room Air 3.0 03/18/17 00:17 92 Room Air 3.0 03/17/17 23:39 36.5 76 18 145/85 (105) 95 Nasal Cannula 1.5 03/17/17 20:14 92 Room Air 3.0 03/17/17 19:14 36.8 83 16 119/68 (85) 97 Nasal Cannula 2.0 Physical Exam General Appearance: no apparent distress, + obese Eyes: normal inspection, EOMI, sclerae normal ENT: normal ENT inspection, hearing grossly normal, pharynx normal Neck: supple, no adenopathy, no JVD, trachea midline Respiratory/Chest: chest non-tender, lungs clear, normal breath sounds, no respiratory distress, no accessory muscle use Cardiovascular: regular rate, rhythm, no edema, no gallop, no JVD, no murmur Abdomen: normal bowel sounds, non tender, soft, no organomegaly Extremities: normal range of motion, non-tender, normal inspection, no pedal edema, no calf tenderness Neurologic/Psychiatric: machine wiper II-XII nml as tested, alert, normal mood/affect, oriented x 3, + motor weakness Skin: normal color, warm/dry, no rash Lymphatic: no adenopathy Laboratory Results Last 24 Hours Test 03/18/17 05:43 Sodium Level 137 mmol/L Potassium Level 3.6 mmol/L Chloride Level 100 mmol/L Carbon Dioxide Level 30 mmol/L Anion Gap 7.0 mmol/L Blood Urea Nitrogen 20 mg/dl Creatinine 0.91 mg/dl Est Creatinine Clear Calc Drug Dose 49.1 ml/min Estimated GFR () 69.5 Estimated GFR (Non- 60.0 BUN/Creatinine Ratio 21.5 Random Glucose 112 mg/dl Calcium Level 8.2 mg/dl Assessment and Plan 77-year-old female admitted on 03/16/2017 with encephalopathy elevated troponin atrial fib RVR oxygen-dependent COPD encephalopathy etiology unknown but likely combination of UTI and polypharmacy with pain medications and muscle relaxers mental status much improved today, better in afternoon compared to AM continue to treat UTI and hold pain medications Atrial fibrillation: converted to sinus rhythm with metoprolol and replacement of K Xarelto started for AC Echo normal Elevated troponin likely from supply demand due to her rapid rate and also her noncompliance with her oxygen with hypoxia per cardiology no invasive work up planned Acute on chronic hypoxic respiratory failure reinforcing supplemental oxygen use scheduled and when necessary nebulizers we'll not use of steroids at this time no concern for concurrent bronchitis Chronic diastolic heart failure with valvular replacement 2010, has reinstitute her torsemide Echocardiogram was done, same as prior Hyponatremia: resolving Hypokalemia and hypomag: resolved Case management PTOT plan to return home on hospice tomorrow Continued [facility] stay due to: multiple IV medications needed Discharge planning: home
[2017-03-18] MEDS ORDERED: RIVAROXABAN 20 MG TAB PO SCH (16:45)
[2017-03-18] MEDS: CIPROFLOXACIN 500 MG TAB PO SCH (20:18)
[2017-03-18] MEDS: METOPROLOL TARTRATE 25 MG TAB PO SCH (20:19)
[2017-03-18] MEDS: QUETIAPINE FUMARATE 25 MG TAB PO SCH (20:19)
[2017-03-19] VITALS (7 sets, daily range): BP systolic 137–166; BP diastolic 85–90; PULSE 65–80; TEMP 36.7; O2SAT 94–97
[2017-03-19] MEDS: ACETAMINOPHEN 325 MG TAB PO PRN ×2 (00:04→09:02)
[2017-03-19 06:27] LABS: BUN/CREATININE RATIO 26.4 (10-20); CALCIUM 9.2 mg/dl (8.5-10.1); CREATININE 0.83 mg/dl (0.60-1.20); MAGNESIUM 2.3 mg/dl (1.8-2.4); POTASSIUM 3.8 mmol/L (3.5-5.1)
[2017-03-19] MEDS: ALBUT/IPRATROP 3MG/0.5MG NEB 3 ML VIAL INH SCH ×3 (07:04→15:07)
--- NOTE | 2017-03-19 08:12 | Medical Student: [facility] ---
Med Student Progress Note Date of Service Mar 19, 2017. Subjective Pt evaluation today including: conversation w/ patient, conversation w/ family , physical exam, lab review, review of studies Voiding: no voiding problems Patient examined laying in bed this morning. She feels tired today and did not sleep well. She continues to have generalized back and upper extremity aches/ soreness. Denies fever, chills, cp, palpitations, sob, abdominal pain, numbness/ tingling, weakness, dysuria, incontinence, calf pain. no bowel or bladder issues. Patient's daughter was present at the bedside. We had a discussion about inpatient rehab and potential benefits of participating in therapy there. The patient expressed understanding and had questions about the expected course. All questions answered satisfactorily. Will work with CM to secure rehab bed. No other complaints at this time. Review of Systems Constitutional: No fever, No chills Eyes: No worsening of vision, No diplopia ENT: No sore throat, No trouble swallowing Respiratory: No cough, No shortness of breath Cardiac: No chest pain, No palpitations Abdomen: No pain, No nausea, No vomiting, No diarrhea, No constipation Musculoskeletal: No muscle pain, No calf pain Female : No dysuria, No incontinence Neurologic: No weakness, No numbness/tingling, No balance problems Psychiatric: No depression symptoms, No anxiety Skin: No rash, No itch Objective Vital Signs Date Time Temp Pulse Resp B/P (MAP) Pulse Ox O2 Delivery O2 Flow Rate FiO2 03/19/17 07:29 36.7 65 17 137/85 (102) 94 Nasal Cannula 2.0 03/19/17 07:04 75 16 94 Room Air 03/19/17 00:02 36.7 80 22 166/90 (115) 96 Nasal Cannula 2.0 03/19/17 00:00 Nasal Cannula 2.0 03/18/17 20:29 98 16 93 Room Air 03/18/17 18:06 36.7 81 18 151/89 (109) 93 Room Air 03/18/17 17:56 97 Nasal Cannula 2.0 03/18/17 17:12 36.7 77 16 94 2.0 03/18/17 16:31 36.7 77 16 94 03/18/17 16:30 36.7 77 16 157/94 (115) 94 Room Air 03/18/17 16:14 96 Room Air 03/18/17 15:14 76 16 98 Nasal Cannula 2.0 03/18/17 12:50 96 Room Air 03/18/17 12:48 37.0 80 16 109/74 (86) 92 Room Air 03/18/17 11:20 68 16 92 Room Air Physical Exam General Appearance: WD/WN, + pertinent finding (tired-appearing) Eyes: bilateral eyes normal inspection, bilateral eyes PERRL, bilateral eyes EOMI ENT: normal ENT inspection, hearing grossly normal, pharynx normal Neck: supple, no adenopathy, no carotid bruits Respiratory/Chest: lungs clear, normal breath sounds, no respiratory distress, no accessory muscle use Cardiovascular: regular rate, rhythm, + systolic murmur (2/6 systolic murmur) Abdomen: normal bowel sounds, non tender, soft Extremities: normal inspection, no pedal edema, no calf tenderness Neurologic/Psychiatric: no motor/sensory deficits, alert, oriented x 3 Skin: + pertinent finding (large area of left underarm ecchymosis) Laboratory Results Last 24 Hours Test 03/19/17 05:36 Sodium Level 137 mmol/L Potassium Level 3.8 mmol/L Chloride Level 101 mmol/L Carbon Dioxide Level 31 mmol/L Anion Gap 5.0 mmol/L Blood Urea Nitrogen 22 mg/dl Creatinine 0.83 mg/dl Est Creatinine Clear Calc Drug Dose 53.8 ml/min Estimated GFR () 77.7 Estimated GFR (Non- 67.1 BUN/Creatinine Ratio 26.4 Random Glucose 121 mg/dl Calcium Level 9.2 mg/dl Magnesium Level 2.3 mg/dl Assessment and Plan Assessment and Plan: This is a 77yo female with a history of lupus, COPD on home O2, diastolic CHF, biologic aortic valve replacement, and depression who was brought to the ED by her daughter after being found at home in a confused state. Upon admission to the hospital she was found to be in afib w/ RVR and with elevated troponin. Started on empiric ciprofloxacin. WBC wnl and afebrile. CT head negative. UA negative to date. CXR showed pulmonary vascular changes consistent with diastolic CHF and mild right-sided pleural effusion. EKG showed afib w/ RVR. Echo showed normal LV systolic function and type 2 diastolic dysfunction. At this time the patient is medically stable but is deconditioned. Plan 1. Encephalopathy, resolved, per patient's daughter the patient has returned to baseline cognition -ciprofloxacin 500mg PO BID -HOLD home Zanaflex, Mirapex, Robaxin and Oxycodone for suspected polypharmacy -cleared by PT -OT recommends inpatient rehab for greater independence and UE strengthening, patient agrees with this and would like to proceed, CM notified and will work on placement 2. Afib w/ RVR -echo done, same as prior -metoprolol tartrate to 75mg PO BID (increased from 50mg BID on 03/18) -ASA 81mg PO daily # Diastolic CHF s/p biologic aortic valve replacement 2010 -torsemide 5mg PO daily -KCl 20meq IV daily # Lupus, stable -tramadol 50mg PO q4h prn pain # COPD, on 2-3L O2 24hrs a day at home -albuterol/ipratropium QID # Constipation, last BM ~1week ago -Miralax 17g PO daily -milk of magnesia 30ml PO q12h # Insomnia -Seroquel 25mg QHS # Anxiety -Ativan 0.5mg PO TID # GERD -protonix 40mg BID # DVT prophylaxis -xarelto 20mg PO daily # Discharge planning -Location: home vs inpatient rehab -Date: TBD Discharge planning: rehab hospital
[2017-03-19] MEDS: METOPROLOL TARTRATE 25 MG TAB PO SCH (08:58)
[2017-03-19] MEDS: POTASSIUM CHLORIDE 10 MEQ TABCR PO SCH (08:58)
[2017-03-19] MEDS: ASPIRIN 81 MG ECTAB PO SCH (08:58)
[2017-03-19] MEDS: CIPROFLOXACIN 500 MG TAB PO SCH (08:59)
[2017-03-19] MEDS: PANTOprazole SOD 40 MG TAB PO SCH (08:59)
[2017-03-19] MEDS: TORSEMIDE 20 MG TAB PO SCH (09:00)
--- NOTE | 2017-03-19 10:37 | CARDIOLOGY PROGRESS NOTE ---
DATE: 03/19/2017 HISTORY OF PRESENT ILLNESS: Mrs. Wilcox remains in a normal sinus rhythm today. She was transferred up to room 451, bed 2, and has not experienced any cardiac symptoms whatsoever. She specifically denies any chest pain, heaviness, tightness, pressure, or chest discomfort. She denies any neck, jaw, back or arm pain. She denies any shortness of breath, orthopnea, or PND. No palpitations, tachypalpitations, syncope, or near syncope. She continues to complain of some low back pain secondary to recent fall. Her mental status has improved with correction of hyponatremia. Her serum potassium level is in the normal range at this time. The patient will most likely be discharged to home later today. PHYSICAL EXAMINATION: VITAL SIGNS: Temperature is 36.7 degrees Celsius, pulse 65 and regular, respiratory rate 17 and unlabored, blood pressure is 136/85, and SpO2 is 94% on 2 liters oxygen via nasal cannula. GENERAL: Chronically ill appearing white female in no acute distress. HEENT: Head is atraumatic and normocephalic. EOMs intact. Sclerae are anicteric. Face is symmetric. No perioral cyanosis. NECK: Without thyromegaly or adenopathy. No JVD. CHEST AND LUNGS: Diminished breath sounds throughout, otherwise clear. No wheezes, rales, or rhonchi. CARDIOVASCULAR: S1 and S2 are regular with a grade 2/6 basal systolic murmur radiates to the suprasternal notch and left sternal border. Grade 2-3/6 apical holosystolic murmur best at the left lower sternal border. No diastolic murmurs appreciated. No gallops or rubs. ABDOMEN: Bowel sounds present. No masses, organomegaly or tenderness. EXTREMITIES: Without clubbing, cyanosis or edema. NEUROLOGIC: The patient is awake, alert and oriented. Pleasant and cooperative. Answers questions appropriately. Speech is clear. Normal movement in all 4 extremities. LABORATORY DATA: Sodium 137 mmol/L, potassium 3.8 mmol/L, BUN 22 mg/dL, creatinine 0.83 mg/dL and random glucose 121 mg/dL. ASSESSMENT: 1. Paroxysmal Atrial Fibrillation with rapid ventricular response, s/p spontaneous conversion to normal sinus rhythm. 2. Hypokalemia, corrected. 3. Elevated troponin I level -- likely secondary to myocardial O2 supply demand mismatch related to atrial fibrillation with rapid ventricular response and hypoxemia. 4. Oxygen dependent COPD. 5. Pulmonary Hypertension. 6. History of bioprosthetic aortic valve replacement and severe tricuspid regurgitation. 7. Nonobstructive CAD on cardiac catheterization in 2010. PLAN: 1. The patient has maintained a normal sinus rhythm since spontaneously converting back to a normal sinus rhythm. Likely secondary to medications and correction of underlying hypokalemia. 2. Discussed the importance of medication compliance. She had missed several doses of supplemental potassium leading up to this hospitalization. 3. Continue compliance with oxygen supplementation. 4. Continue usp Lopressor 75 mg b.i.d. 5. Continue Xarelto 20 mg daily for thromboembolic prophylaxis. 6. Continue Demadex 5 mg daily as directed. 7. Continue potassium chloride 20 mEq b.i.d. 8. Continue long-term aspirin 81 mg daily. 9. Minimize opiate use. 10. The patient is stable from a cardiac standpoint for discharge to home. She has home health/hospice coming into her home, which will help us to keep a close eye on her. Thank you for asking us to see this patient in consultation. JUAN
[2017-03-19] MEDS ORDERED: ULT50X PO (14:17)
[2017-03-19] MEDS ORDERED: TIZA2CAP PO (14:17)
[2017-03-19] MEDS ORDERED: ATV/1 PO ×2 (14:17→14:19)
[2017-03-19] MEDS ORDERED: METO50TA17 PO (14:17)
[2017-03-19] MEDS ORDERED: XRL20 PO (14:33)
--- NOTE | 2017-03-19 14:33 | Discharge Instructions ---
Discharge Instructions Date of Service Mar 19, 2017. Admission Reason for Admission: Atrial fibrillation with RVR Discharge Discharge Diagnosis / Problem: Demand ischemia, hypokalemia Discharge Goals Goal(s): Improve function, Increase independence Activity Recommendations Activity Level: Ambulates in room Therapies: Physical Therapy, Occupational Therapy Lifting Limitations: none Exercise/Sports Limitations: as tolerated Shower/Bathe: no limitations . Additional Information Patient informed of condition: Yes Advance Directives: Yes DNR: No Level of Care: Acute Rehab Communicable Disease: No Prognosis: Improving Oxygen at (LPM): 2L, chronic Still Catheter: No Instructions / Follow-Up Instructions / Follow-Up Medications: - METOPROLOL: increased dose to 75mg BID from 50mg BID due to the atrial fibrillation with RVR, tolerating well - ATIVAN: patient was not taking three times a day at home, maybe once a day at 1mg and not every day, will change dose to 0.5mg BID as needed - ZANAFLEX: need to taper this if she has plans to stop, will decrease to twice a day for a week and can then decrease to once a day for a week and try to discontinue - ULTRAM: use for pain instead of the Kinsey 10/325mg that she was taking, pain has been controlled in the hospital Atrial fibrillation: converted to NSR and rates controlled by correcting potassium and increasing Metoprolol to 75mg BID anti-coagulation discussed by cardiology, patient would like to go on Xarelto 20mg daily, prescription given Elevated troponin, demand ischemia: evaluated by cardiology, mild rise and fall in troponin, no EKG changes, consistent with demand ischemia from RVR echocardiogram normal, no regional wall motion abnormalities Chronic pain: patient would like to decrease or eliminate what she can, stopped Kinsey, using Ultram instead, tapering back Zanaflex her mental status has been improved during admission Disposition: she had originally been on hospice, however, she will revoke for now and go to rehab to get stronger prior to going home for her safety she would like to continue hospice once home we discussed code status, she had been DNR in the past but wants to change to full code now FOLLOW UP - physician at [facility] this week - Dr. Barajas one week after d/c from rehab Current Hospital Diet Patient's current hospital diet: Regular Diet Discharge Diet Recommended Diet: Regular Diet Pending Studies Studies pending at discharge: no Physician Orders On Transfer POLST Discussion: without POLST completion Laboratory Results Hemoglobin A1c Test 01/26/17 11:44 Range/Units Estimated Average Glucose 166 mg/dl Hemoglobin A1c 7.4 H 4.5-5.6 % Lipid Panel Test 01/26/17 11:44 Range/Units Triglycerides Level 143 0-150 mg/dl Cholesterol Level 126 0-200 mg/dl HDL Cholesterol 33 mg/dl Cholesterol/HDL Ratio 3.8 LDL Cholesterol, Calculated 64 mg/dl Medical Emergencies . Who to Call and When: Medical Emergencies: If at any time you feel your situation is an emergency, please call 911 immediately. . Non-Emergent Contact Non-Emergency issues call your: Primary Care Provider Call Non-Emergent contact if: you have any medication questions . . "Provider Documentation" section prepared by Jose Ivory. . Core Measure Problem Core Measures: None [place] Drug Monitoring Program Search Results: no issues identified
--- NOTE | 2017-03-19 15:37 | Discharge Summary ---
Discharge Summary Date of Service Mar 19, 2017. Discharge Summary Admission Date: Mar 16, 2017 at 12:53 Discharge Date: Mar 19, 2017 Discharge Disposition: Rehab Principal Diagnosis: Atrial fibrillation with RVR Problems/Secondary Diagnoses: Demand ischemia Hypokalemia Chronic pain Immunizations: Have You Had Influenza Vaccine: No History of Tetanus Vaccine?: Yes History of Pneumococcal: No History of Hepatitis B Vaccine: Yes Procedures: Echocardiogram Consultations: cardiology Medication Reconciliation New Medications: Metoprolol Tartrate (Metoprolol Tartrate) 50 Mg Tab 75 MG PO BID for 30 Days, #90 TABS 3 Refills Rivaroxaban (Xarelto) 20 Mg Tab 20 MG PO QDD, #30 TAB 3 Refills Tramadol HCl (Tramadol HCl) 50 Mg Tab 50 MG PO Q4H PRN for Pain, #60 TAB 0 Refills Changed Medications: Lorazepam (Ativan) 1 Mg Tab 0.5 MG PO BID PRN for Anxiety/Agitation, #60 TAB 0 Refills (Changed from: 1 MG) Tizanidine (Zanaflex) 2 Mg Cap 2 MG PO BID PRN for Muscle Spasms, #60 CAP 1 Refill (Changed from: TID; Refills : ) Continued Medications: Colestipol Hcl (Colestid) 1 Gm Tab 2 GM PO DAILY, TAB Ferrous Sulfate (Kp Ferrous Sulfate) 325 Mg Tab 325 MG PO DAILY for 30 Days, #30 TAB 3 Refills Fluticasone Propionate (Flovent Hfa) 120 Puffs/42051 Mcg Aero 1 PUFF INH BID for 30 Days, #1 INHALER 3 Refills Home O2 Therapy (Oxygen) Gas 2 LITERS NA PRN Ipratropium [place] (Ipratropium [place]) 0.5 Mg/2.5 Ml Nebu 1 VIAL NEB QID PRN for Shortness of Breath for 30 Days, #300 ML 3 Refills Levothyroxine Sodium (Levothyroxine Sodium) 112 Mcg Tab 112 MCG PO QAM Loratadine (Claritin) 10 Mg Tab 10 MG PO QAM for ALLERGIES, TAB Magnesium Oxide (Mg Supplement (Magnesium) 500 Mg Cap 500 MG PO BID Methocarbamol (Robaxin) 500 Mg Tab 500 MG PO TID PRN for Pain, TAB Ondansetron Hcl (Zofran) 4 Mg Tab 4 MG PO Q6H PRN for Nausea, TAB Pantoprazole (Protonix) 40 Mg Tab 40 MG PO BID, #30 TAB Potassium Chloride (Micro-K Ext Rel) 10 Meq Capcr 20 MEQ PO BID, CAP Pramipexole Dihydrochloride (Mirapex) 0.25 Mg Tab 25 MG PO BID PRN for RLS, #30 TAB 5 Refills Torsemide (Demadex) 10 Mg Tab 5 MG PO DAILY, TAB Torsemide (Demadex) 10 Mg Tab 10-20 MG PO DAILY PRN for WEIGHT GAIN/SOB, TAB Discontinued Medications: Hydrocodone/Acetaminophen 10MG/325MG ([place] 10MG/325MG) Tab 1 TAB PO Q6 PRN for Pain, TAB PRN PAIN Metoprolol Tartrate (Lopressor) (Lopressor) 50 Mg Tab 50 MG PO BID, TAB Discharge Exam Patient feeling fatigued this AM, did not sleep well last night. Moving around her room but feels weaker, unsure she could go home. Discussed with patient and family about rehab, OT had actually made that recommendation. She agreed and she was accepted to [facility]. Review of Systems: Constitutional: + weakness, + fatigue, No fever, No chills, No sweats, No weight loss, No problem reported Eyes: No worsening of vision, No eye pain, No redness, No discharge, No diplopia, No problem reported ENT: No hearing loss, No unusual epistaxis, No nasal symptoms, No sore throat, No tinnitus, No dental problems, No trouble swallowing, No problem reported Respiratory: No cough, No sputum, No wheezing, No shortness of breath, No dyspnea on exertion, No dyspnea at rest, No hemoptysis, No problem reported Cardiovascular: No chest pain, No orthopnea, No PND, No edema, No claudication, No palpitations, No problem reported Abdomen: No pain, No nausea, No vomiting, No diarrhea, No constipation, No GI bleeding, No problem reported Musculoskeletal: No joint pain, No muscle pain, No swelling, No calf pain, No problem reported Genitourinary - Female: No dysuria, No urinary frequency, No urinary urgency , No urinary incontinence, No urinary retention, No hematuria Neurologic: + weakness, + balance problems, No memory loss, No paralysis, No numbness/tingling, No vertigo, No problem reported Psychiatric: + depression symptoms, No anhedonism, No anxiety, No insomnia, No substance abuse, No problem reported Endocrine: No fatigue, No excessive thirst, No excessive urination, No problem reported Hematologic / Lymphatic: No abnormal bleeding/bruising, No clotting problems , No swollen lymph nodes, No night sweats, No problem reported Integumentary: No rash, No itch, No new/changing skin lesions, No color change, No bleeding, No problem reported Physical Exam: General Appearance: WD/WN, no apparent distress Eyes: normal inspection, EOMI, sclerae normal ENT: normal ENT inspection, hearing grossly normal, pharynx normal Neck: supple, no adenopathy, no JVD, trachea midline Respiratory/Chest: chest non-tender, lungs clear, normal breath sounds, no respiratory distress, no accessory muscle use Cardiovascular: regular rate, rhythm, no edema, no gallop, no JVD, no murmur , normal peripheral pulses Abdomen / GI: normal bowel sounds, non tender, soft, no organomegaly Extremities: normal inspection, no calf tenderness, normal capillary refill , no pedal edema, normal range of motion, pelvis stable Neurologic/Psychiatric: aerodynamics professor II-XII nml as tested, alert, normal mood/affect , normal reflexes, oriented x 3, + abnormal gait, + motor weakness (generalized) Skin: normal color, warm/dry, no rash Lymphatic: no adenopathy Hospital Course 77-year-old female admitted on 03/16/2017 with encephalopathy elevated troponin atrial fib RVR oxygen-dependent COPD encephalopathy etiology unknown but likely combination of polypharmacy with pain medications and muscle relaxers and atrial fibrillation mental status back to baseline today by holding narcotics and benzodiazepines and muscle relaxers will resume Zanaflex at lower dose and plan to taper off can continue Ativan but at lower dose and only as needed, try to taper even further initially treated for UTI but no growth on urine culture and UA did not show signs of infection Atrial fibrillation: converted to sinus rhythm with metoprolol and replacement of K note that metoprolol increased to 75mg BID from 50mg BID Xarelto started for AC, continue 20mg daily Echo normal Elevated troponin likely from supply demand due to her rapid rate and also her noncompliance with her oxygen with hypoxia per cardiology no invasive work up planned Acute on chronic hypoxic respiratory failure: acute component resolved quickly, on baseline 2L Chronic diastolic heart failure with valvular replacement 2010, continue Torsemide Echocardiogram was done, same as prior Hyponatremia: resolved Hypokalemia and hypomag: resolved Case management PTOT d/c to [facility] to get stronger and be safer at home since she lives alone she would like to reconsider Hospice in the near future Total Time Spent: Greater than 30 minutes This includes examination of the patient, discharge planning, medication reconciliation, and communication with other providers. Discharge Instructions Please refer to the electronic Patient Visit Report (Discharge Instructions) for additional information. Follow-Up physician at [facility] Dr. Barajas Additional Copies To [facility]; Angela Barajas MD
--- NOTE | 2017-03-22 20:35 | Progress Note ---
Progress Note Date of Service Mar 22, 2017. Progress Note late entry On 03/21/17 I received a phone call from microbiology that 1/ blood cx bottles was + for gram positive rods. It took nearly 5 days for this pathogen to grow. Review of pt's record shows she was admitted for a. fib and was afebrile her entire stay. I suspect that this gram positive ally is a contaminant and will not require follow-up or treatment. See Roberson MD
--- NOTE | 2017-04-23 12:36 | EMERGENCY ROOM VISIT NOTE ---
History First contact with patient: 07:23 Chief Complaint: VOMITING Stated Complaint: ELEVATED TROPONIN Nursing Triage Summary: HAS BEEN VOMITING AND NAUSEA FOR 2 DAYS History of Present Illness The patient is a 77 year old white female who presents to the Emergency Room with complaints of confusion, restlessness, nausea, and vomiting that have been ongoing for the last 2 days. Patient is accompanied by her daughter. Her daughter is visiting from [place]. She found that her mother has been confused and had fallen last evening. She has had several episodes of nausea and vomiting. She has had no complaints of chest pain. She has chronic shortness of breath due to COPD and does use oxygen. She is denying any headache. No treatment yet. No back pain or abdominal pain. She denies any UTI symptoms. She has been voiding. Review of Systems REVIEW OF SYSTEM: HEENT: No visual problems, hearing loss, or tinnitus. There is no difficulty swallowing and no oral lesions are present. LYMPH: No adenopathy. PULMONARY: No sputum production or hemoptysis. Positive shortness of breath. CARDIOVASCULAR: No chest pain or peripheral edema. Positive shortness of breath. GASTROINTESTINAL: No diarrhea, or abdominal pain. Positive nausea and vomiting , also constipation. GENITOURINARY: No dysuria, frequency, urgency or nocturia. NEUROLOGIC: No muscle tenderness, epilepsy or history of neurological problems. No history of chronic headaches. MUSCULOSKELETAL: No history of joint tenderness/swelling. Positive history of arthritis and arthralgias. SKIN: No rashes or lesions. PSYCHIATRIC: Positive history of depression. ENDOCRINE: No history of diabetes or abnormal hair growth. Hypothyroid. Past Medical/Surgical History Medical Problems: (1) Afib (2) Chest pain (3) COPD (chronic obstructive pulmonary disease) (4) Dyspnea (5) Elevated troponin (6) GERD (gastroesophageal reflux disease) (7) Yin's thyroiditis (8) Hypothyroid (9) Hypoxia (10) Lupus (11) Osteoarthritis (12) Right-sided heart failure Surgical Problems: (1) Aortic valve replaced (2) H/O: hysterectomy (3) Hx of cholecystectomy Family History No pertinent family history Social History Smoking Status: Former Smoker Smokeless Tobacco Use: No Alcohol Use: none Drug Use: none Marital Status: Housing Status: lives alone Occupation Status: retired Current/Historical Medications Scheduled Colestipol Hcl (Colestid), 2 GM PO DAILY Ferrous Sulfate (Kp Ferrous Sulfate), 325 MG PO DAILY Fluticasone Propionate (Flovent Hfa), 1 PUFF INH BID Home O2 Therapy (Oxygen), 2 LITERS NA PRN Levothyroxine Sodium (Levothyroxine Sodium), 112 MCG PO QAM Magnesium Oxide (Mg Supplement (Magnesium), 500 MG PO BID Metoprolol Tartrate (Metoprolol Tartrate), 75 MG PO BID Pantoprazole (Protonix), 40 MG PO BID Potassium Chloride (Micro-K Ext Rel), 20 MEQ PO BID Quetiapine Fumarate (Seroquel), 25 MG PO HS Rivaroxaban (Xarelto), 20 MG PO QDD Torsemide (Demadex), 5 MG PO DAILY Scheduled PRN Tizanidine (Zanaflex), 2 MG PO BID PRN for Muscle Spasms Allergies Coded Allergies: Penicillins (Verified Allergy, Severe, HIVES,ANAPHYLAXIS, 03/16/17) Shellfish (Verified Allergy, Severe, DIFFICULTY SWALLOWING & HIVES, ) Clindamycin (Unverified Allergy, Unknown, UNKNOWN, 03/16/17) Pravastatin (Unverified Allergy, Unknown, UNKNOWN, 03/16/17) Rosuvastatin (Unverified Allergy, Unknown, UNKNOWN, 03/16/17) Ezetimibe (Verified Adverse Reaction, Mild, INTOLERANCE TO VYTORIN, ) Simvastatin (Verified Adverse Reaction, Mild, INTOLERANCE, 03/16/17) Physical Exam Vital Signs Pain Rating (0-10): 5.0 Physical Exam Gen.: Frail, elderly white female, in no acute distress. Laying on a bed. She did vomit while in the ED. Alert and Oriented to place. Skin:Warm and dry with good turgor. No rashes or lesions. No ecchymosis or erythema. The patient is not diaphoretic. No abrasions. HEENT: Normocephalic atraumatic. Eyes PERRLA, EOMI. No conjunctiva or scleral injection. Ears TMs intact bilaterally with good light reflexes. No erythema or bulging. No hemotympanum. Canals are patent. Nares patent bilaterally without turbinate enlargement. No significant drainage. No epistaxis. Oropharynx without erythema or exudate. Uvula midline, oral mucosa moist. No lesions present. Dentures are noted. Heart: Heart irregularly irregular. No MGR. Peripheral pulses are 2+. Lungs: Lungs are clear to auscultation. No crackles rhonchi or wheezing. Fair air movement. The patient is able to take a deep breath. Abdomen: Abdomen was inspected, auscultated, and palpated. Obese. Bowel sounds present x 4 but infrequent. Soft, nontender to palpation. No hepato- splenomegaly. No masses noted. No rebound. Right-sided CVA tenderness. Musculoskeletal: Gross motor function is intact for the upper and lower extremities. Mild peripheral edema. Neurologic: Gross sensation is intact across the upper and lower extremities by soft touch. Medical Decision & Procedures ER Provider Diagnostic Interpretation: EKG obtained today shows atrial fibrillation with a rapid ventricular response. Rate of 120. This was reviewed with Dr. Young. Acute abdominal x-ray series was obtained today. This was read by radiology as No free air. Mildly dilated loop of small bowel with the left upper quadrant without convincing evidence for a bowel obstruction. Pulmonary vascular congestion with a trace right pleural effusion. CT scan imaging of the head was also obtained. This was read by radiology as unremarkable for acute finding. Laboratory Results CBC, chem panel, amylase, lipase, CK/CK-MB, troponin, and UA were obtained. Troponin is significantly elevated. H&H are elevated. She has low chloride with hypokalemia, and hyponatremia. UA shows 2+ ketones. Medications Administered Medications (Trade) Dose Ordered Sig/Lara Route Start Time Stop Time Status Last Admin Dose Admin Sodium Chloride 1,000 ml @ 150 mls/hr Q6H40M STAT IV 03/16/17 07:39 03/16/17 14:18 DC 03/16/17 08:55 150 MLS/HR Promethazine HCl 25 mg/Sodium Chloride 51 ml @ 204 mls/hr NOW STAT IV 03/16/17 08:50 03/16/17 09:04 DC 03/16/17 08:50 204 MLS/HR Metoprolol Tartrate (Lopressor Iv) 5 mg NOW STAT IV 03/16/17 09:26 03/16/17 09:27 DC 03/16/17 09:49 5 MG Metoprolol Tartrate (Lopressor Iv) 5 mg NOW STAT IV 03/16/17 10:14 03/16/17 10:16 DC 03/16/17 10:49 5 MG Ondansetron HCl (Zofran Inj) 4 mg NOW STAT IV 03/16/17 10:14 03/16/17 10:16 DC 03/16/17 10:45 4 MG Potassium Chloride (Kcl 10 Meq / Wtr) 10 meq NOW STAT IV 03/16/17 10:16 03/16/17 10:17 DC 03/16/17 10:50 10 MEQ Metoprolol Tartrate (Lopressor Iv) 5 mg NOW STAT IV 03/16/17 12:13 03/16/17 12:14 DC 03/16/17 12:19 5 MG Lorazepam (Ativan Inj) 0.5 mg NOW STAT IV 03/16/17 12:13 03/16/17 12:14 DC 03/16/17 12:19 0.5 MG Pantoprazole Sodium (Protonix Tab) 40 mg BID PO 03/16/17 21:00 03/19/17 16:02 DC 03/19/17 08:59 40 MG Potassium Chloride (Klor-Con M10) 20 meq BID PO 03/16/17 21:00 03/19/17 16:02 DC 03/19/17 08:58 20 MEQ Torsemide (Demadex Tab) 5 mg DAILY PO 03/17/17 09:00 03/19/17 16:02 DC 03/19/17 09:00 5 MG Acetaminophen (Tylenol Tab) 650 mg Q4H PRN PO 03/16/17 13:00 03/19/17 16:02 DC 03/19/17 09:02 650 MG Magnesium Hydroxide (Milk Of Magnesia Susp) 30 ml Q12H PRN PO 03/16/17 13:00 03/19/17 16:02 DC 03/18/17 11:18 30 ML Ondansetron HCl (Zofran Inj) 4 mg Q6H PRN IV 03/16/17 13:00 03/19/17 16:02 DC 03/16/17 17:03 4 MG Polyethylene (Miralax Powder Packet) 17 gm DAILY PRN PO 03/16/17 13:00 03/19/17 16:02 DC 03/18/17 08:13 17 GM Albuterol/ Ipratropium (Duoneb) 3 ml QIDR INH 03/16/17 16:00 03/19/17 16:02 DC 03/19/17 15:07 3 ML Enoxaparin Sodium (Lovenox Inj) 70 mg Q12 SQ 03/16/17 16:00 03/18/17 15:14 DC 03/18/17 08:13 70 MG Aspirin (Ecotrin Tab) 81 mg QAM PO 03/17/17 09:00 03/19/17 16:02 DC 03/19/17 08:58 81 MG Potassium Chloride 10 meq/ Prmx 100 ml @ 100 mls/hr Q1H IV 03/16/17 16:00 03/16/17 18:59 DC 03/16/17 18:00 100 MLS/HR Magnesium Sulfate 1 gm/Prmx 100 ml @ 100 mls/hr ONE ONCE IV 03/16/17 16:00 03/16/17 16:59 DC 03/16/17 16:50 100 MLS/HR Metoprolol Tartrate (Lopressor Tab) 50 mg Q8 PO 03/16/17 14:00 03/18/17 15:14 DC 03/18/17 08:13 50 MG Hydralazine HCl (HydrALAZINE INJ) 10 mg Q4H PRN IV 03/16/17 13:00 03/19/17 16:02 DC 03/16/17 13:58 10 MG Sodium Chloride 1,000 ml @ 100 mls/hr Q10H IV 03/16/17 13:00 03/17/17 03:59 DC 03/17/17 04:08 100 MLS/HR Quetiapine Fumarate (seroQUEL TAB) 25 mg HS PO 03/16/17 21:00 03/19/17 16:02 DC 03/18/17 20:19 25 MG Haloperidol Lactate (Haldol Inj) 5 mg NOW STAT IV 03/16/17 13:26 03/16/17 13:55 DC 03/16/17 14:00 5 MG Ciprofloxacin/ Dextrose 400 mg/ Prmx 200 ml @ 100 mls/hr Q12@0400,1600 IV 03/16/17 16:00 03/18/17 15:14 DC 03/18/17 03:50 100 MLS/HR Morphine Sulfate (MoRPHine SULFATE INJ) 2 mg Q4H PRN IV 03/16/17 17:00 03/18/17 15:14 DC 03/18/17 05:59 2 MG Oxycodone HCl (Roxicodone Immediate Rel Tab) 10 mg Q6 PRN PO 03/16/17 17:00 03/18/17 15:14 DC 03/17/17 17:20 10 MG Potassium Chloride 10 meq/ Prmx 100 ml @ 100 mls/hr Q1H IV 03/17/17 07:45 03/17/17 09:44 DC 03/17/17 08:45 100 MLS/HR Al Hydroxide/Mg Hydroxide (Maalox Susp) 30 ml STK-MED ONCE .ROUTE 03/18/17 08:06 03/18/17 08:07 DC 03/18/17 08:06 30 ML Al Hydroxide/Mg Hydroxide (Maalox Susp) 30 ml ONE ONCE PO 03/18/17 08:11 03/18/17 08:12 DC 03/18/17 08:12 30 ML Metoprolol Tartrate (Lopressor Tab) 75 mg BID PO 03/18/17 20:00 03/19/17 16:02 DC 03/19/17 08:58 75 MG Ciprofloxacin (Cipro Tab) 500 mg BID PO 03/18/17 20:00 03/19/17 16:02 DC 03/19/17 08:59 500 MG Tramadol HCl (Ultram Tab) 50 mg Q4H PRN PO 03/18/17 15:15 03/19/17 16:02 DC 03/18/17 17:41 50 MG Rivaroxaban (Xarelto Tab) 20 mg QDD PO 03/18/17 16:45 03/19/17 16:02 DC 03/18/17 17:37 20 MG 1 L normal sterile saline at 150 ML per hour, metoprolol 5 mg IV 3, potassium 10meq, Phenergan 25 mg IV, Zofran 4 mg IV, ED Course Patient was educated regarding today's findings as was her daughter. Conservative care measures were discussed. IV was established. Labs were obtained. EKG and acute abdominal series were also obtained. CT scan imaging of the head was also obtained and was unremarkable. Patient was given multiple doses of metoprolol 5 mg IV. She was also given Phenergan 25 mg IV and Zofran 4 mg IV for her nausea. This did improve. Troponin was found to be elevated. 2+ ketones in urine. I suspect she is dehydrated. She also has abnormal electrolytes with low chloride, hypokalemia, hyponatremia, and. Because of this , and her new-onset A. fib, hospital service was consulted for admission. Please see that dictation for final management. Patient remained stable while in the ED. She was seen in conjunction with Dr. Young, who also evaluated the patient and concurred with today's diagnosis and treatment plan. Medical Decision Possibility of viral illness, bowel obstruction, TX, new onset A. fib, CAD, electrolyte abnormality, dehydration, kidney stone, and UTI were considered Impression Primary Impression: Elevated troponin Additional Impressions: New onset a-fib Hypokalemia SOB (shortness of breath) Departure Information Dispostion Still a Patient Condition FAIR Prescriptions Rivaroxaban (Xarelto) 20 Mg Tab 20 MG PO QDD, #30 TAB 3 Refills Prov: Jose Ivory D.OJanny 03/19/17 Metoprolol Tartrate (Metoprolol Tartrate) 50 Mg Tab 75 MG PO BID for 30 Days, #90 TABS 3 Refills Prov: Jose Ivory D.OJanny 03/19/17 Tizanidine (Zanaflex) 2 Mg Cap 2 MG PO BID Y for Muscle Spasms, #60 CAP 1 Refill Prov: Jose Ivory D.Pearl 03/19/17 Referrals Angela Barajas MD (PCP) Forms HOME CARE DOCUMENTATION FORM, IMPORTANT VISIT INFORMATION Patient Instructions [facility] Health Problem Qualifiers
== END 2017-03-19 15:40 | DRG 308 ==
LOC: EDBD 07:14 → C.EDB 07:17 → C.2T 12:53 → UNDOADMIN 12:57 → ENRESERV 13:01 → C.MS4W 03-18 17:05
PROVIDERS: ADMIT Internal Medicine; ATTEND Internal Medicine
DX: I48.0 Paroxysmal atrial fibrillation (principal); G93.40 Encephalopathy, unspecified; J96.21 Acute and chronic respiratory failure with hypoxia; I50.32 Chronic diastolic (congestive) heart failure; E22.2 Syndrome of inappropriate secretion of antidiuretic hormone; I24.8 Other forms of acute ischemic heart disease; N39.0 Urinary tract infection, site not specified; I11.0 Hypertensive heart disease with heart failure; Z95.2 Presence of prosthetic heart valve; K21.9 Gastro-esophageal reflux disease without esophagitis; M32.8 Other forms of systemic lupus erythematosus; J44.9 Chronic obstructive pulmonary disease, unspecified; I27.2 Other secondary pulmonary hypertension; Z99.81 Dependence on supplemental oxygen; E87.6 Hypokalemia; E78.5 Hyperlipidemia, unspecified; I36.1 Nonrheumatic tricuspid (valve) insufficiency; I16.0 Hypertensive urgency; M19.90 Unspecified osteoarthritis, unspecified site

== ENCOUNTER 2017-03-29 20:04 | Observation (INO) | payer OTHER ==
[~2017-03-29] VITALS: Ht 160 cm; Wt 72.1 kg
[~2017-03-29 20:04] MED LIST changes: -ALBU1AER9 INH; +ATV/1 PO; -ATVUNK PO; -AZITTAB PO; +COLE1TAB PO; +FERR1TAB13 PO; -FERR325T51 PO; +FLVHFA110 INH; -FOLI400T18 PO; -HYDR-4079 PO; -LPR25 PO; -METO-217 PO; +METO50TA17 PO; -MOME1AER5 INH; +ONDA4TAB46 PO; -POTA-331 PO; +POTA10CA28 PO; -PRAM0.129 PO; +PRAM1TAB52 PO; +TIZA2CAP PO; +TORS10TA14 PO; +ULT50X PO; +XRL20 PO; -[UNRECOGNIZED DRUG - CODE] PO
[2017-03-29] MEDS ORDERED: QUET1TAB30 PO (20:38)
--- NOTE | 2017-03-29 20:39 | DIAGNOSTIC IMAGING REPORT ---
CHEST ONE VIEW PORTABLE HISTORY: Atypical Chest Pain COMPARISON: Chest 03/16/2017. FINDINGS: The lungs are clear. Post sternotomy changes. The heart is stable in size. No pleural effusions. No pneumothorax. No evidence for pulmonary edema. No focal lung consolidations to suggest pneumonia. Stable mild volume loss within the right hemithorax. Cholecystectomy. An aortic valve prosthesis is again noted. IMPRESSION: No acute process. Electronically signed by: Raymon Piper M.D. 03/29/2017 8:38 PM Dictated Date/Time: 03/29/2017 8:37 PM
[2017-03-29 20:40] LABS: BASO % 0.4 %; BASO ABS # 0.03 K/uL (0-0.2); COMPLETE YES; EOS % 1.9 %; HEMATOCRIT 47.5 % (37-47); IG% 0.2 %; LYMPH ABS # 2.49 K/uL (1.2-3.4); MEAN CELL VOLUME 84.1 fL (80-100); MEAN CORPUSCULAR HGB CONC 33.3 g/dl (32-36); MEAN PLATELET VOLUME 11.1 fL (7.4-10.4); NEUT % 51.5 %; PLATELET COUNT 382 K/uL (130-400); RED BLOOD COUNT 5.65 M/uL (4.2-5.4); WHITE BLOOD COUNT 8.29 K/uL (4.8-10.8)
[2017-03-29] MEDS ORDERED: NITROGLYCERIN 0.4 MG SL PER TAB CHARGE SL PRN ×2 (21:00→22:00)
[2017-03-29 21:06] LABS: BLOOD UREA NITROGEN 27 mg/dl (7-18); BUN/CREATININE RATIO 34.5 (10-20); CALCIUM 9.5 mg/dl (8.5-10.1); CARBON DIOXIDE 28 mmol/L (21-32); CHLORIDE 102 mmol/L (98-107); CREATININE 0.77 mg/dl (0.60-1.20); GLUCOSE 115 mg/dl (70-99); SODIUM 136 mmol/L (136-145)
[2017-03-29 21:14] LABS: INR 1.4 (0.9-1.1); PARTIAL THROMBOPLASTIN RATIO 1.4; PROTHROMBIN TIME (PATIENT) 14.8 SECONDS (9.0-12.0)
[2017-03-29 21:23] LABS: URINE APPEARANCE CLEAR (CLEAR); URINE BILIRUBIN NEG (NEG); URINE COLOR YELLOW; URINE NITRITE NEG (NEG); URINE PH 5.5 (4.5-7.5); URINE SPECIFIC GRAVITY 1.015 (1.000-1.030); UROBILINOGEN NEG (NEG); ZZUR CULT IF INDIC CLEAN CATCH NO
[2017-03-29 21:25] LABS: MANUAL MICROSCOPIC REQUIRED? NO; REVIEW REQ? NO
[2017-03-29 21:55] LABS: POTASSIUM 4.3 mmol/L (3.5-5.1)
[2017-03-29] MEDS ORDERED: ONDANSETRON INJ 2 MG/ML 2 ML VIAL IV PRN (22:00)
[2017-03-29] MEDS ORDERED: NITROGLYCERIN OINT 2% 1GM PACKET EXT ONE (22:00)
[2017-03-29] MEDS ORDERED: MoRPHine SULFATE 2 MG/ML CARP IV PRN (22:00)
[2017-03-29] MEDS ORDERED: ALUMINUM/MAGNESIUM/SIMETH (MAALOX MAX) 30 ML UDC PO PRN (22:00)
[2017-03-29] MEDS ORDERED: MAGNESIUM HYDROXIDE SUSP 30 ML UDC PO PRN (22:00)
[2017-03-29] MEDS ORDERED: ACETAMINOPHEN 325 MG TAB PO PRN (22:00)
[2017-03-29] MEDS ORDERED: POLYETHYLENE (MIRALAX) 17 GM PACK PO PRN (22:00)
--- NOTE | 2017-03-29 22:57 | History and Physical ---
History & Physical Date & Time of Service: Mar 29, 2017 at 21:55 Chief Complaint: Chest Pressure/Tachy Primary Care Physician: Angela Barajas MD History of Present Illness Source: patient 77 y/o F Hx PAF, AVR, COPD, hypothyroidism, diastolic CHF. Recent admission with symptomatic hyponatremia and an elevated troponin deemed due to demand mismatch related to AF/RVR and COPD. Pt is currently rehabbing at [facility] and has complained of intermittent CP throughout the day. The pain is described as central, nonradiating. The pt denies SOB, N/V, diaphoresis or lightheadedness. She obtained marginal relief with NTG. Initial troponin is elevated, however, it appears to be below baseline. An EKG is not consistent with acute ischemia. 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 11) Hyponatremia 12) Severe tricuspid regurge Surgical Problems: (1) Aortic valve replaced - bioprosthesis - 2010 Status: Chronic 2) Cholecystectomy 3) Hysterectomy Family History No pertinent family history Father owing to an NE - Mother at 91 Hx of AVR Social History Smoking Status: Former Smoker Marital Status: Housing status: lives alone Occupational Status: retired Immunizations History of Influenza Vaccine: No History of Tetanus Vaccine?: Yes History of Pneumococcal: No History of Hepatitis B Vaccine: Yes Multi-Drug Resistant Organisms History of MDRO: No Allergies Coded Allergies: Penicillins (Verified Allergy, Severe, HIVES,ANAPHYLAXIS, 03/16/17) Shellfish (Verified Allergy, Severe, DIFFICULTY SWALLOWING & HIVES, ) Clindamycin (Unverified Allergy, Unknown, UNKNOWN, 03/16/17) Pravastatin (Unverified Allergy, Unknown, UNKNOWN, 03/16/17) Rosuvastatin (Unverified Allergy, Unknown, UNKNOWN, 03/16/17) Ezetimibe (Verified Adverse Reaction, Mild, INTOLERANCE TO VYTORIN, ) Simvastatin (Verified Adverse Reaction, Mild, INTOLERANCE, 03/16/17) Home Medications Scheduled Colestipol Hcl (Colestid), 2 GM PO DAILY Ferrous Sulfate (Kp Ferrous Sulfate), 325 MG PO DAILY Fluticasone Propionate (Flovent Hfa), 1 PUFF INH BID Home O2 Therapy (Oxygen), 2 LITERS NA PRN Levothyroxine Sodium (Levothyroxine Sodium), 112 MCG PO QAM Magnesium Oxide (Mg Supplement (Magnesium), 500 MG PO BID Metoprolol Tartrate (Metoprolol Tartrate), 75 MG PO BID Pantoprazole (Protonix), 40 MG PO BID Potassium Chloride (Micro-K Ext Rel), 20 MEQ PO BID Quetiapine Fumarate (Seroquel), 25 MG PO HS Rivaroxaban (Xarelto), 20 MG PO QDD Torsemide (Demadex), 5 MG PO DAILY Scheduled PRN Tizanidine (Zanaflex), 2 MG PO BID PRN for Muscle Spasms Review of Systems Constitutional: + weakness ([place] weak w/PT), No fever, No chills, No sweats Eyes: No worsening of vision ENT: No hearing loss, No unusual epistaxis, No nasal symptoms Respiratory: No cough, No wheezing Cardiovascular: + chest pain Abdomen: No pain, No nausea, No vomiting Musculoskeletal: No joint pain Genitourinary - Female: No dysuria, No urinary frequency Neurologic: + weakness, No memory loss, No paralysis Endocrine: No fatigue Hematologic / Lymphatic: No abnormal bleeding/bruising Integumentary: No rash Allergic / Immunologic: No environmental allergies Physical Exam Vital Signs Date Time Temp Pulse Resp B/P (MAP) Pulse Ox O2 Delivery O2 Flow Rate FiO2 03/29/17 21:31 78 18 126/94 95 Room Air 03/29/17 20:29 85 03/29/17 20:16 Room Air 03/29/17 20:07 86 18 94 Room Air General Appearance: WD/WN, no apparent distress Head: normocephalic Eyes: normal inspection, PERRL, EOMI ENT: normal ENT inspection, pharynx normal Neck: supple, no JVD Respiratory/Chest: chest non-tender, lungs clear, normal breath sounds, no respiratory distress, no accessory muscle use Cardiovascular: regular rate, rhythm, no edema, no gallop, no JVD, no murmur, normal peripheral pulses, + systolic murmur (Slight systolic murmur) Abdomen/GI: normal bowel sounds, non tender, soft Back: normal inspection Neurologic/Psych: tail dogger II-XII nml as tested, no motor/sensory deficits, alert, normal mood/affect, normal reflexes, oriented x 3 Skin: normal color, warm/dry Diagnostics Laboratory Results Results Past 24 Hours Test 03/29/17 19:30 03/29/17 20:52 03/29/17 20:56 Range/Units White Blood Count 8.29 4.8-10.8 K/uL Red Blood Count 5.65 4.2-5.4 M/uL Hemoglobin 15.8 12.0-16.0 g/dL Hematocrit 47.5 37-47 % Mean Corpuscular Volume 84.1 80-100 fL Mean Corpuscular Hemoglobin 28.0 25-34 pg Mean Corpuscular Hemoglobin Concent 33.3 32-36 g/dl Platelet Count 382 130-400 K/uL Mean Platelet Volume 11.1 7.4-10.4 fL Neutrophils (%) (Auto) 51.5 % Lymphocytes (%) (Auto) 30.0 % Monocytes (%) (Auto) 16.0 % Eosinophils (%) (Auto) 1.9 % Basophils (%) (Auto) 0.4 % Neutrophils # (Auto) 4.26 1.4-6.5 K/uL Lymphocytes # (Auto) 2.49 1.2-3.4 K/uL Monocytes # (Auto) 1.33 0.11-0.59 K/uL Eosinophils # (Auto) 0.16 0-0.5 K/uL Basophils # (Auto) 0.03 0-0.2 K/uL RDW Standard Deviation 49.8 36.4-46.3 fL RDW Coefficient of Variation 16.3 11.5-14.5 % Immature Granulocyte % (Auto) 0.2 % Immature Granulocyte # (Auto) 0.02 0.00-0.02 K/uL Sodium Level 136 136-145 mmol/L Potassium Level 3.5-5.1 mmol/L Chloride Level 102 98-107 mmol/L Carbon Dioxide Level 28 21-32 mmol/L Anion Gap 6.0 3-11 mmol/L Blood Urea Nitrogen 27 7-18 mg/dl Creatinine 0.77 0.60-1.20 mg/dl Est Creatinine Clear Calc Drug Dose 56.6 ml/min Estimated GFR () 85.1 Estimated GFR (Non- 73.4 BUN/Creatinine Ratio 34.5 10-20 Random Glucose 115 70-99 mg/dl Calcium Level 9.5 8.5-10.1 mg/dl Total Creatine Kinase 26-192 U/L Creatine Kinase MB 1.3 0.5-3.6 ng/ml Creatine Kinase MB Ratio 0-3.0 Troponin I 0.094 0-0.045 ng/ml Urine Color YELLOW Urine Appearance CLEAR CLEAR Urine pH 5.5 4.5-7.5 Urine Specific [place] 1.015 1.000-1.030 Urine Protein NEG NEG Urine Glucose (UA) NEG NEG Urine Ketones NEG NEG Urine Occult Blood NEG NEG Urine Nitrite NEG NEG Urine Bilirubin NEG NEG Urine Urobilinogen NEG NEG Urine Leukocyte Esterase TRACE NEG Urine WBC (Auto) 5-10 0-5 /hpf Urine RBC (Auto) 0-4 0-4 /hpf Urine Hyaline Casts (Auto) 0 0-5 /lpf Urine Epithelial Cells (Auto) 10-20 0-5 /lpf Urine Bacteria (Auto) NEG NEG Prothrombin Time 14.8 9.0-12.0 SECONDS Prothromb Time International Ratio 1.4 0.9-1.1 Activated Partial Thromboplast Time 36.1 21.0-31.0 SECONDS Partial Thromboplastin Ratio 1.4 EKG Sinus - normal axis - no acute changes Impression Assessment and Plan 77 y/o F Hx AF, AVR, COPD, hypothyroidism, diastolic CHF. Recent admission with symptomatic hyponatremia and an elevated troponin deemed due to demand mismatch related to AF/RVR and COPD. Pt is currently rehabbing at [facility] and has complained of intermittent CP throughout the day. The pain is described as central, nonradiating. The pt denies SOB, N/V, diaphoresis or lightheadedness. She obtained marginal relief with NTG. Initial troponin is elevated, however, it appears to be below baseline. An EKG is not consistent with acute ischemia. 1) CP - Pt assigned to telemetry - will obtain serial enzymes - she is anticoagulated with Xarelto, takes a B rox and is Statin intolerant. NTG or morphine PRN. 2) PAF - currently sinus - cont B rox and Xarelto. 3) Diastolic CHF - cont Bblocker, Torsemide. 4) COPD - 02 protocol, cont inhalers as prescribed. Level of Care Telemetry Resuscitation Status FULL RESUSCITATION VTE Prophylaxis VTE Risk Assessment Done? Y/N: Yes Risk Level: Moderate Given or contraindicated: Other Anticoagulation
[2017-03-29 23:01] VITALS: BP 149/98; PULSE 84; TEMP 36.4; Ht 160 cm; Wt 72.1 kg
[2017-03-29] MEDS ORDERED: IV FLUIDS COMPLETED PRN (23:30)
[2017-03-30] VITALS: O2SAT 93
--- NOTE | 2017-03-30 02:59 | EMERGENCY ROOM VISIT NOTE ---
History Report prepared by Allison: Libby Arango Under the Supervision of: Dr. Willem Clements D.O. First contact with patient: 20:08 Chief Complaint: TACHYCARDIA Stated Complaint: CHEST PRESSURE/TACHY History of Present Illness The patient is a 77 year old female who presents to the Emergency Room with complaints of persistent chest pain that started around 1200 today. She rates her pain as a 3/10 in severity and describes it as feeling like "pressure". Her pain has subsided minimally since 1200, but she can "still feel it". She denies any arm pain or jaw pain. She was brought to the ED via EMS and was given Nitro and Aspirin in the field, which have provided minimal relief. Per EMS, her heart rate was in the mid 80's to 90's during transport to the ED. The patient was recently treated here in the hospital after a syncopal episode and "cardiac event" and was discharged to [facility]. She notes she also experienced chest pressure during her last hospital stay. She also admits prior to her syncopal episode, she had been abusing her Ativan, and went through 1 bottle in approximately 24 hours. The patient states she saw Burak Solis PA-C, with [facility] yesterday, and was told to come to the ED with any episodes of chest pain or tachycardia. The patient denies headache, change in vision, fevers, shortness of breath, abdominal pain, nausea, vomiting, diarrhea, pain with urination, and melena. She currently receives Lovenox shots and believes her last shot was this past Saturday, 5 days ago. Source of History: patient Onset: 1200 today Position: chest Symptom Intensity: Quality: pressure Timing: other (persistent) Modifying Factors (Relieving): other (Nitro and Aspirin) Associated Symptoms: No fevers, No headache, No SOB, No nausea, No vomiting , No abdominal pain, No melena, No diarrhea, No urinary symptoms Review of Systems See HPI for pertinent positives & negatives. A total of 10 systems reviewed and were otherwise negative. Past Medical & Surgical Medical Problems: (1) Afib (2) Chest pain (3) COPD (chronic obstructive pulmonary disease) (4) Dyspnea (5) Elevated troponin (6) GERD (gastroesophageal reflux disease) (7) Yin's thyroiditis (8) Hypothyroid (9) Hypoxia (10) Lupus (11) Osteoarthritis (12) Right-sided heart failure Surgical Problems: (1) Aortic valve replaced (2) H/O: hysterectomy (3) Hx of cholecystectomy Family History No pertinent family history Social History Smoking Status: Former Smoker Marital Status: Occupation Status: retired Current/Historical Medications Scheduled Colestipol Hcl (Colestid), 2 GM PO DAILY Ferrous Sulfate (Kp Ferrous Sulfate), 325 MG PO DAILY Fluticasone Propionate (Flovent Hfa), 1 PUFF INH BID Home O2 Therapy (Oxygen), 2 LITERS NA PRN Levothyroxine Sodium (Levothyroxine Sodium), 112 MCG PO QAM Magnesium Oxide (Mg Supplement (Magnesium), 500 MG PO BID Metoprolol Tartrate (Metoprolol Tartrate), 75 MG PO BID Pantoprazole (Protonix), 40 MG PO BID Potassium Chloride (Micro-K Ext Rel), 20 MEQ PO BID Quetiapine Fumarate (Seroquel), 25 MG PO HS Rivaroxaban (Xarelto), 20 MG PO QDD Torsemide (Demadex), 5 MG PO DAILY Scheduled PRN Tizanidine (Zanaflex), 2 MG PO BID PRN for Muscle Spasms Allergies Coded Allergies: Penicillins (Verified Allergy, Severe, HIVES,ANAPHYLAXIS, 03/16/17) Shellfish (Verified Allergy, Severe, DIFFICULTY SWALLOWING & HIVES, ) Clindamycin (Unverified Allergy, Unknown, UNKNOWN, 03/16/17) Pravastatin (Unverified Allergy, Unknown, UNKNOWN, 03/16/17) Rosuvastatin (Unverified Allergy, Unknown, UNKNOWN, 03/16/17) Ezetimibe (Verified Adverse Reaction, Mild, INTOLERANCE TO VYTORIN, ) Simvastatin (Verified Adverse Reaction, Mild, INTOLERANCE, 03/16/17) Physical Exam Vital Signs Date Time Temp Pulse Resp B/P (MAP) Pulse Ox O2 Delivery O2 Flow Rate FiO2 03/29/17 21:31 78 18 126/94 95 Room Air 03/29/17 20:29 85 03/29/17 20:16 Room Air 03/29/17 20:07 86 18 94 Room Air Physical Exam GENERAL: patient is sitting up in bed, alert, disheveled, well nourished, no distress, non-toxic EYE EXAM: normal conjunctiva OROPHARYNX: no exudate, no erythema, lips, buccal mucosa, and tongue normal and mucous membranes are moist NECK: supple, no nuchal rigidity, no adenopathy, non-tender LUNGS: Clear to auscultation. Normal chest wall mechanics HEART: no murmurs, S1 normal and S2 normal ABDOMEN: abdomen soft, non-tender, normo-active bowel sounds, no masses, no rebound or guarding. BACK: Back is symmetrical on inspection and there is no deformity, no midline tenderness, no CVA tenderness. SKIN: no rashes and no bruising UPPER EXTREMITIES: upper extremities are grossly normal. LOWER EXTREMITIES: No pitting edema. Calves are equal bilaterally. NEURO EXAM: Normal sensorium, cranial nerves II-XII grossly intact, normal speech, no gross weakness of arms, no gross weakness of legs. Gross sensation intact. Medical Decision & Procedures ER Provider Diagnostic Interpretation: Radiology results as stated below per my review and the radiologist's interpretation: CHEST ONE VIEW PORTABLE HISTORY: Atypical Chest Pain COMPARISON: Chest 03/16/2017. FINDINGS: The lungs are clear. Post sternotomy changes. The heart is stable in size. No pleural effusions. No pneumothorax. No evidence for pulmonary edema. No focal lung consolidations to suggest pneumonia. Stable mild volume loss within the right hemithorax. Cholecystectomy. An aortic valve prosthesis is again noted. IMPRESSION: No acute process. Electronically signed by: Raymon Piper M.D. 03/29/2017 8:38 PM Laboratory Results 03/29/17 19:30 Red Blood Count 5.65, Mean Corpuscular Volume 84.1, Mean Corpuscular Hemoglobin 28.0, Mean Corpuscular Hemoglobin Concent 33.3, Mean Platelet Volume 11.1, Neutrophils (%) (Auto) 51.5, Lymphocytes (%) (Auto) 30.0, Monocytes (%) (Auto) 16.0, Eosinophils (%) (Auto) 1.9, Basophils (%) (Auto) 0.4, Neutrophils # (Auto ) 4.26, Lymphocytes # (Auto) 2.49, Monocytes # (Auto) 1.33, Eosinophils # (Auto ) 0.16, Basophils # (Auto) 0.03 03/29/17 19:30 03/29/17 20:56 Test 03/29/17 19:30 03/29/17 20:52 03/29/17 20:56 White Blood Count 8.29 K/uL (4.8-10.8) Red Blood Count 5.65 M/uL (4.2-5.4) Hemoglobin 15.8 g/dL (12.0-16.0) Hematocrit 47.5 % (37-47) Mean Corpuscular Volume 84.1 fL (80-100) Mean Corpuscular Hemoglobin 28.0 pg (25-34) Mean Corpuscular Hemoglobin Concent 33.3 g/dl (32-36) Platelet Count 382 K/uL (130-400) Mean Platelet Volume 11.1 fL (7.4-10.4) Neutrophils (%) (Auto) 51.5 % Lymphocytes (%) (Auto) 30.0 % Monocytes (%) (Auto) 16.0 % Eosinophils (%) (Auto) 1.9 % Basophils (%) (Auto) 0.4 % Neutrophils # (Auto) 4.26 K/uL (1.4-6.5) Lymphocytes # (Auto) 2.49 K/uL (1.2-3.4) Monocytes # (Auto) 1.33 K/uL (0.11-0.59) Eosinophils # (Auto) 0.16 K/uL (0-0.5) Basophils # (Auto) 0.03 K/uL (0-0.2) RDW Standard Deviation 49.8 fL (36.4-46.3) RDW Coefficient of Variation 16.3 % (11.5-14.5) Immature Granulocyte % (Auto) 0.2 % Immature Granulocyte # (Auto) 0.02 K/uL (0.00-0.02) Anion Gap 6.0 mmol/L (3-11) Est Creatinine Clear Calc Drug Dose 56.6 ml/min Estimated GFR () 85.1 Estimated GFR (Non- 73.4 BUN/Creatinine Ratio 34.5 (10-20) Calcium Level 9.5 mg/dl (8.5-10.1) Creatine Kinase MB 1.3 ng/ml (0.5-3.6) Creatine Kinase MB Ratio (0-3.0) Urine Color YELLOW Urine Appearance CLEAR (CLEAR) Urine pH 5.5 (4.5-7.5) Urine Specific [place] 1.015 (1.000-1.030) Urine Protein NEG (NEG) Urine Glucose (UA) NEG (NEG) Urine Ketones NEG (NEG) Urine Occult Blood NEG (NEG) Urine Nitrite NEG (NEG) Urine Bilirubin NEG (NEG) Urine Urobilinogen NEG (NEG) Urine Leukocyte Esterase TRACE (NEG) Urine WBC (Auto) 5-10 /hpf (0-5) Urine RBC (Auto) 0-4 /hpf (0-4) Urine Hyaline Casts (Auto) 0 /lpf (0-5) Urine Epithelial Cells (Auto) 10-20 /lpf (0-5) Urine Bacteria (Auto) NEG (NEG) Prothrombin Time 14.8 SECONDS (9.0-12.0) Prothromb Time International Ratio 1.4 (0.9-1.1) Activated Partial Thromboplast Time 36.1 SECONDS (21.0-31.0) Partial Thromboplastin Ratio 1.4 Total Creatine Kinase 37 U/L (26-192) Laboratory results per my review. ECG Indication: chest pain Rate (beats per minute): 87 Rhythm: sinus rhythm Findings: no ectopy, other (normal axis) ED Course ED COURSE: Vital signs were reviewed and showed normal vital signs. The patients medical record was reviewed The above diagnostic studies were performed and reviewed. ED treatments and interventions as stated above. 2019: The patient was evaluated in room A10. A complete history and physical examination was performed. 2100: Nitroglycerin 0.4 mg SL. 2136: Upon reevaluation, the patient is feeling well and is completely pain free. I discussed my findings with the patient and she understands and agrees with the treatment plan. 2215: I discussed the patients case with Dr. Matson, [facility] Hospitalist. The patient will be further evaluated. Based on the patients age, coexisting illnesses, exam and lab findings the decision to treat as an inpatient was made. The patient remained stable while under my care. The patient will be evaluated for further management. Medical Decision Differential diagnoses includes but is not limited to acute coronary syndrome, myocardial infarction, pericarditis, pulmonary embolus, aortic dissection, pneumonia, pneumothorax, musculoskeletal, shingles, esophageal. Patient is a 77-year-old female that presents to the ER for chest pain which was resolved with nitroglycerin and aspirin. She does have a history of a CARLOS valve. She is on a Xa inhibitor. She has not missed any doses. She was recently discharged Saturday following having an elevated troponin and likely secondary to a drug overdose. She was given several doses of nitroglycerin here with complete resolution of her pain. EKG was unremarkable. Troponin was detectable. She is pain-free and admitted to internal medicine with an elevated troponin and chest pain that has resolved. Medication Reconcilliation Current Medication List: was personally reviewed by me Blood Pressure Screening Patient's blood pressure: Normal blood pressure Blood pressure disposition: Did not require urgent referral Consults Time Called: 2139 Consulting Physician: Dr. Matson [facility] Hospitalist Returned Call: 2214 I discussed the patients case with Dr. Matson [facility] Hospitalist. The patient will be further evaluated. Impression Primary Impression: Precordial chest pain Additional Impression: Elevated troponin Scribe Attestation The scribe's documentation has been prepared under my direction and personally reviewed by me in its entirety. I confirm that the note above accurately reflects all work, treatment, procedures, and medical decision making performed by me. Departure Information Dispostion Being Evaluated By Hospitalist Referrals Angela Barajas MD (PCP) Patient Instructions My [facility] Problem Qualifiers
[2017-03-30] MEDS ORDERED: MoRPHine SULFATE 2 MG/ML CARP IV STA (03:00)
[2017-03-30 03:53] VITALS: BP 153/98; PULSE 93; TEMP 36.5; O2SAT 94
[2017-03-30 04:26] VITALS: O2SAT 93
[2017-03-30] MEDS ORDERED: LEVOTHYROXINE 112 MCG TAB PO SCH (06:00)
[2017-03-30 08:08] VITALS: BP 123/77; PULSE 108; TEMP 36.7; O2SAT 91
[2017-03-30] MEDS ORDERED: TORSEMIDE 20 MG TAB PO SCH (09:00)
[2017-03-30] MEDS ORDERED: FLUTICASONE HFA 110MCG INHALER INH SCH (09:00)
[2017-03-30] MEDS ORDERED: FERROUS SULFATE 325 MG TAB PO SCH (09:00)
[2017-03-30] MEDS ORDERED: MAGNESIUM OXIDE 400 MG TAB PO SCH (09:00)
[2017-03-30] MEDS ORDERED: POTASSIUM CHLORIDE 10 MEQ TABCR PO SCH (09:00)
[2017-03-30] MEDS ORDERED: METOPROLOL TARTRATE 50 MG TAB PO SCH (09:00)
[2017-03-30] MEDS ORDERED: PANTOprazole SOD 40 MG TAB PO SCH (09:00)
[2017-03-30] MEDS ORDERED: COLESTIPOL HCL 1 GM TAB PO SCH (10:00)
[2017-03-30 10:42] VITALS: BP 107/72; PULSE 79; TEMP 36.6; O2SAT 94
--- NOTE | 2017-03-30 10:46 | CARDIOLOGY PROGRESS NOTE ---
DATE: 03/30/2017 SUBJECTIVE: Mrs. Wilcox is resting comfortably at the bedside without complaints of chest pain or dyspnea. The patient explains that her presenting complaint was that of substernal chest discomfort lasting approximately 6 hours before her presentation to the Emergency Room. There are no other associated symptoms such as shortness of breath, nausea, vomiting or diaphoresis. Results of her troponin testing discussed in detail. OBJECTIVE: VITAL SIGNS: Blood pressure is 150/90 with a regular pulse of 84. Respiratory rate is 20 and the patient is afebrile at 36.5 degrees Celsius. Saturation is 94% on room air. NECK: Supple with full carotid upstrokes. There are no carotid bruits. Jugular venous pressure is flat at 90 degrees. There is no thyromegaly. CARDIOVASCULAR: Reveals a regular rhythm with normal S1 and S2. Heart sounds are distant. No obvious murmurs. LUNGS: Note decreased breath sounds but no rales, rhonchi or wheezes. ABDOMEN: Obese without bruits. EXTREMITIES: Reveal intact radial artery pulses bilaterally. There is no peripheral edema. DATA: CBC notes hemoglobin 15.8, hematocrit 47.5, white count 8.29 and a platelet count of 382,000. Electrolytes note sodium of 136, potassium 4.3, chloride 102, bicarbonate 28, BUN 27, creatinine 0.77, glucose of 115. Troponin I level at presentation was 0.094 with followup values of 0.093 and 0.092. CK peaked at her last hospitalization in late February at 1.11. EKG notes normal sinus rhythm with biatrial enlargement, but no ischemic changes. secured entrance monitor noted 1 paroxysm of atrial fibrillation which resolved spontaneously. IMPRESSION AND PLAN: 1. Chest pain syndrome -- atypical for classic angina pectoris. Although her troponin is mildly elevated, it is trending down from her hospitalization on 03/16/2017 where it peaked at 1.11. No ischemic changes on EKG. The initial troponin elevation in February was due to a supply-demand mismatch as the patient presented with atrial fibrillation and rapid ventricular response. 2. Paroxysmal atrial fibrillation -- stable on Xarelto and metoprolol tartrate. 3. Hypertension. 4. Statin-intolerant hypercholesterolemia. 5. History of right-sided congestive failure -- currently compensated. 6. Pulmonary hypertension -- with moderate to severe tricuspid regurgitation. 7. Status post bioprosthetic aortic valve replacement -- 09/2010. 8. Nonobstructive coronary artery disease -- 09/2010. 9. Oxygen-dependent chronic obstructive pulmonary disease.
--- NOTE | 2017-03-30 13:29 | Discharge Instructions ---
Discharge Instructions Date of Service Mar 30, 2017. Admission Reason for Admission: Chest Pain Discharge Discharge Diagnosis / Problem: atypical Chest pain Discharge Goals Goal(s): Decrease discomfort, Improve function, Increase independence, Improve disease control, Improve nutritional status, Learn about illness, Diagnostic testing, Therapeutic intervention, Prevent Disease Progression, Specific goals Activity Recommendations Activity Limitations: resume your previous activity . Instructions / Follow-Up Instructions / Follow-Up you have Chest pain syndrome, it is atypical for classic angina pectoris. you have Paroxysmal atrial fibrillation on Xarelto you have chronic lower back pain, you should be very cautious about NSAID such as ibuprofen, use only as directed by our pcp - you need to follow up with your primary care physician in 1 week, - take medication as instructed, never overdose or any misuse, or take with alcohol, because misuse of medicine may cause organ damage or , call your primary care physician if have questions of medicaitons. - call your primary care physician OR go to local emergency room if has any fever/chill, chest pain, shortness of breathing, nausea/vomiting/abdominal pain , facial droop/slurry speech/local weakness, or if has any questions. - fall precaution - diet as instructed - you need to follow up with your subspecialist - you should understand that it is important to follow up the above instruction , and "not following the above instruction" may cause delayed or missed care of your medical conditions which may cause permanent organ damage and even . Current Hospital Diet Patient's current hospital diet: AHA Diet (Heart Healthy) Discharge Diet Recommended Diet: AHA Diet (Heart Healthy) Pending Studies Studies pending at discharge: no Laboratory Results Hemoglobin A1c Test 01/26/17 11:44 Range/Units Estimated Average Glucose 166 mg/dl Hemoglobin A1c 7.4 H 4.5-5.6 % Lipid Panel Test 01/26/17 11:44 Range/Units Triglycerides Level 143 0-150 mg/dl Cholesterol Level 126 0-200 mg/dl HDL Cholesterol 33 mg/dl Cholesterol/HDL Ratio 3.8 LDL Cholesterol, Calculated 64 mg/dl Medical Emergencies . Who to Call and When: Medical Emergencies: If at any time you feel your situation is an emergency, please call 911 immediately. . Non-Emergent Contact Non-Emergency issues call your: Primary Care Provider, Civil Engineering Director . . "Provider Documentation" section prepared by Cal Rodriguez. . VTE Core Measure Inpt VTE Proph given/why not?: Other Anticoagulation
[2017-03-30 14:40] VITALS: BP 107/72; PULSE 79; TEMP 36.6; O2SAT 94
[2017-03-30] MEDS ORDERED: RIVAROXABAN 20 MG TAB PO SCH (16:45)
--- NOTE | 2017-03-30 16:53 | Discharge Summary ---
Discharge Summary Date of Service Mar 30, 2017. Discharge Summary Admission Date: Mar 29, 2017 at 21:51 Discharge Date: Mar 30, 2017 Principal Diagnosis: Chest pain syndrome, it is atypical for classic angina pectoris Problems/Secondary Diagnoses: Paroxysmal atrial fibrillation on Xarelto chronic lower back pain, Immunizations: Have You Had Influenza Vaccine: No History of Tetanus Vaccine?: Yes History of Pneumococcal: No History of Hepatitis B Vaccine: Yes Procedures: No Consultations: Sock Folder Medication Reconciliation Continued Medications: Colestipol Hcl (Colestid) 1 Gm Tab 2 GM PO DAILY, TAB Ferrous Sulfate (Kp Ferrous Sulfate) 325 Mg Tab 325 MG PO DAILY for 30 Days, #30 TAB 3 Refills Fluticasone Propionate (Flovent Hfa) 120 Puffs/90977 Mcg Aero 1 PUFF INH BID for 30 Days, #1 INHALER 3 Refills Home O2 Therapy (Oxygen) Gas 2 LITERS NA PRN Levothyroxine Sodium (Levothyroxine Sodium) 112 Mcg Tab 112 MCG PO QAM Magnesium Oxide (Mg Supplement (Magnesium) 500 Mg Cap 500 MG PO BID Metoprolol Tartrate (Metoprolol Tartrate) 50 Mg Tab 75 MG PO BID for 30 Days, #90 TABS 3 Refills Pantoprazole (Protonix) 40 Mg Tab 40 MG PO BID, #30 TAB Potassium Chloride (Micro-K Ext Rel) 10 Meq Capcr 20 MEQ PO BID, CAP Quetiapine Fumarate (Seroquel) 25 Mg Tab 25 MG PO HS, TAB Rivaroxaban (Xarelto) 20 Mg Tab 20 MG PO QDD, #30 TAB 3 Refills Tizanidine (Zanaflex) 2 Mg Cap 2 MG PO BID PRN for Muscle Spasms, #60 CAP 1 Refill Torsemide (Demadex) 10 Mg Tab 5 MG PO DAILY, TAB Discharge Exam No more chest pain feeling well Review of Systems: Constitutional: No fever, No chills, No sweats, No weight loss, No weakness , No fatigue, No problem reported Eyes: No worsening of vision, No eye pain, No redness, No discharge, No diplopia, No problem reported ENT: No hearing loss, No unusual epistaxis, No nasal symptoms, No sore throat, No tinnitus, No dental problems, No trouble swallowing, No problem reported Respiratory: No cough, No sputum, No wheezing, No shortness of breath, No dyspnea on exertion, No dyspnea at rest, No hemoptysis, No problem reported Cardiovascular: No chest pain, No orthopnea, No PND, No edema, No claudication, No palpitations, No problem reported Abdomen: No pain, No nausea, No vomiting, No diarrhea, No constipation, No GI bleeding, No problem reported Musculoskeletal: + joint pain (chronic back pain) Genitourinary - Female: No dysuria, No urinary frequency, No urinary urgency , No urinary incontinence, No urinary retention, No hematuria, No dysmenorrhea, No menorrhagia, No metrorrhagia, No rash, No vaginal bleeding, No vaginal discharge, No vaginal itching, No vulvodynia, No , No problem reported Neurologic: No memory loss, No paralysis, No weakness, No numbness/tingling , No vertigo, No balance problems, No problem reported Psychiatric: No depression symptoms, No anhedonism, No anxiety, No insomnia , No substance abuse, No problem reported Endocrine: No fatigue, No excessive thirst, No excessive urination, No problem reported Hematologic / Lymphatic: No abnormal bleeding/bruising, No clotting problems , No swollen lymph nodes, No night sweats, No problem reported Integumentary: No rash, No itch, No new/changing skin lesions, No color change, No bleeding, No problem reported Physical Exam: General Appearance: WD/WN, no apparent distress, + pertinent finding ( pleasant) Eyes: normal inspection, PERRL, EOMI ENT: normal ENT inspection, hearing grossly normal, TMs normal Neck: supple Respiratory/Chest: chest non-tender, normal breath sounds, no respiratory distress, no accessory muscle use, + decreased breath sounds Cardiovascular: regular rate, rhythm, no edema, no gallop Abdomen / GI: normal bowel sounds, non tender, soft, no organomegaly, no pulsatile mass Extremities: normal inspection, no calf tenderness, normal capillary refill Neurologic/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 Per report , he pain is described as central, nonradiating. The pt denies SOB, N/V, diaphoresis or lightheadedness. obtained marginal relief with NTG. Initial troponin is elevated, however, it appears to be below baseline. An EKG is not consistent with acute ischemia. Recent admission with symptomatic hyponatremia and an elevated troponin deemed due to demand mismatch related to AF/RVR and COPD. CP, has been on telemetry Cardizem and troponin negative 2 descended case monitor unremarkable anticoagulated with Xarelto, takes a B rox and is Statin intolerant. NTG or morphine PRN. Dr. Roberson saw the patient, feel is atypical chest pain, recommend to discharge and follow-up saw patient When I see patient she has no chest pain PAF - currently sinus - cont B rox and Xarelto. Diastolic CHF - cont Bblocker, Torsemide. COPD - 02 protocol, cont inhalers as prescribed. Discussed with patient about discharge plan and care plan, she agreed to go home , Discharge instruction you have Chest pain syndrome, it is atypical for classic angina pectoris. you have Paroxysmal atrial fibrillation on Xarelto you have chronic lower back pain, you should be very cautious about NSAID such as ibuprofen, use only as directed by [facility] pcp - you need to follow up with your primary care physician in 1 week, - take medication as instructed, never overdose or any misuse, or take with alcohol, because misuse of medicine may cause organ damage or , call your primary care physician if have questions of medicaitons. - call your primary care physician OR go to local emergency room if has any fever/chill, chest pain, shortness of breathing, nausea/vomiting/abdominal pain , facial droop/slurry speech/local weakness, or if has any questions. - fall precaution - diet as instructed - you need to follow up with your subspecialist - you should understand that it is important to follow up the above instruction , and "not following the above instruction" may cause delayed or missed care of your medical conditions which may cause permanent organ damage and even . Total Time Spent: Less than 30 minutes This includes examination of the patient, discharge planning, medication reconciliation, and communication with other providers. Discharge Instructions Please refer to the electronic Patient Visit Report (Discharge Instructions) for additional information. Additional Copies To Yogi Roberson M.D.; Angela Barajas M.D.
[2017-03-30] MEDS ORDERED: QUETIAPINE FUMARATE 25 MG TAB PO SCH (21:00)
== END 2017-03-30 14:45 | disposition home or self-care (01) ==
LOC: EDBD 20:04 → C.EDA 20:07 → C.2T 21:51 → ENRESERV 22:07
PROVIDERS: ADMIT Internal Medicine; ATTEND Hospitalist
DX: R07.89 Other chest pain (principal); J44.9 Chronic obstructive pulmonary disease, unspecified; I48.0 Paroxysmal atrial fibrillation; I50.32 Chronic diastolic (congestive) heart failure; I27.2 Other secondary pulmonary hypertension; E78.00 Pure hypercholesterolemia, unspecified; I07.1 Rheumatic tricuspid insufficiency; I25.10 Atherosclerotic heart disease of native coronary artery without angina pectoris; K21.9 Gastro-esophageal reflux disease without esophagitis; E06.3 Autoimmune thyroiditis; E03.9 Hypothyroidism, unspecified; L93.2 Other local lupus erythematosus; Z99.81 Dependence on supplemental oxygen; Z79.899 Other long term (current) drug therapy; Z95.2 Presence of prosthetic heart valve; Z87.891 Personal history of nicotine dependence

== ENCOUNTER → 2017-06-24 | Outpatient (CLI) | payer OTHER ==
[~2017-06-24] MED LIST changes: -ATRINS NEB; -ATV/1 PO; -CLR10 PO; -METH500T37 PO; -ONDA4TAB46 PO; -PRAM1TAB52 PO; +QUET1TAB30 PO; -ULT50X PO
[2017-06-24 15:35] LABS: BASO % 0.5 %; BASO ABS # 0.04 K/uL (0-0.2); EOS % 3.1 %; HEMATOCRIT 39.8 % (37-47); IG% 0.4 %; LYMPH % 33.9 %; LYMPH ABS # 2.49 K/uL (1.2-3.4); MEAN CELL VOLUME 90.7 fL (80-100); MEAN CORPUSCULAR HEMOGLOBIN 28.7 pg (25-34); MEAN CORPUSCULAR HGB CONC 31.7 g/dl (32-36); MONO % 14.3 %; NEUT % 47.8 %; PLATELET COUNT 275 K/uL (130-400); RED BLOOD COUNT 4.39 M/uL (4.2-5.4); WHITE BLOOD COUNT 7.34 K/uL (4.8-10.8)
[2017-06-24 15:49] LABS: ALT/SGPT 20 U/L (12-78); AST/SGOT 20 U/L (15-37); BLOOD UREA NITROGEN 15 mg/dl (7-18); BUN/CREATININE RATIO 19.7 (10-20); CALCIUM 9.3 mg/dl (8.5-10.1); CARBON DIOXIDE 29 mmol/L (21-32); CHLORIDE 102 mmol/L (98-107); CREATININE 0.78 mg/dl (0.60-1.20); GLUCOSE 88 mg/dl (70-99); POTASSIUM 4.5 mmol/L (3.5-5.1); SODIUM 136 mmol/L (136-145)
[2017-06-24 16:01] LABS: ALB/GLOB RATIO 0.9 (0.9-2); ALKALINE PHOSPHATASE 42 U/L (45-117)
[2017-06-24 16:14] LABS: ANISOCYTOSIS PRESENT; COMPLETE YES; POIKILOCYTOSIS PRESENT
== END | disposition home or self-care (01) ==
LOC: C.LAB1850 12:32
PROVIDERS: ATTEND Family Medicine
DX: R42 Dizziness and giddiness (principal); R51 Headache

== ENCOUNTER → 2017-07-23 | Outpatient (CLI) | payer OTHER ==
[~2017-07-23] MED LIST changes: +PANT1TAB3 PO; -PANT1TAB48 PO
[2017-07-23 15:10] LABS: BLOOD UREA NITROGEN 17 mg/dl (7-18); BUN/CREATININE RATIO 18.3 (10-20); CALCIUM 9.1 mg/dl (8.5-10.1); CARBON DIOXIDE 32 mmol/L (21-32); CHLORIDE 102 mmol/L (98-107); CREATININE 0.95 mg/dl (0.60-1.20); GLUCOSE 153 mg/dl (70-99); POTASSIUM 4.2 mmol/L (3.5-5.1); SODIUM 137 mmol/L (136-145)
== END | disposition home or self-care (01) ==
LOC: C.LAB1850 13:01
PROVIDERS: ATTEND Physician Assistant
DX: I50.30 Unspecified diastolic (congestive) heart failure (principal)

== ENCOUNTER → 2017-07-24 | Outpatient (CLI) | payer OTHER ==
[~2017-07-24] MED LIST changes: +ACET-1693 PO; +AZIT500T26 PO; +IBUP-1050 PO; +IPRA-64 INH; +ONDA4TAB46 PO; +TIOT1AER2 INH; +VNTHFA/IN INH
--- NOTE | 2017-07-24 13:35 | DIAGNOSTIC IMAGING REPORT ---
CHEST 2 VIEWS ROUTINE HISTORY: Short of breath. I50.30 Diastolic congestive heart [id number] COMPARISON: Chest 03/29/2017. FINDINGS: No pleural effusions. No pneumothorax. Moderate compression deformity at T12. This is likely old. Aortic valve prosthesis is again noted. No focal lung consolidations to suggest pneumonia. No evidence for pulmonary edema. The heart is mildly enlarged. IMPRESSION: Mild cardiomegaly which has slightly progressed. No evidence for pulmonary edema at this time. Electronically signed by: Raymon Piper M.D. 07/24/2017 1:33 PM Dictated Date/Time: 07/24/2017 1:31 PM
== END | disposition home or self-care (01) ==
LOC: C.RAD1850 13:23
PROVIDERS: ATTEND Physician Assistant
DX: I50.30 Unspecified diastolic (congestive) heart failure (principal)

== ENCOUNTER → 2017-10-14 | Outpatient (CLI) | payer OTHER ==
[~2017-10-14] MED LIST changes: -IPRA-64 INH; +IPRASOL4 INH; +LIDOCAINE HCL 2% JELLY 30 ML TUBE EXT ONE
--- NOTE | 2017-10-14 08:16 | DIAGNOSTIC IMAGING REPORT ---
(CHEST) THORAX WITHOUT CLINICAL HISTORY: 77 years-old Female presenting with J39.2 Cricopharyngeal hypertrophy, coughing, shortness of breath. TECHNIQUE: Multidetector CT imaging of the chest was performed without the use of intravenous contrast. IV contrast: None. A dose lowering technique was used consistent with the principles of ALARA (as low as reasonably achievable). COMPARISON: 01/17/2017. CT DOSE (mGy.cm): The estimated cumulative dose is 356.06 mGy.cm. 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 Cholecystectomy clips. On soft tissue windows, normal thyroid and thoracic inlet. No axillary, supraclavicular, or mediastinal lymphadenopathy. Evaluation of the sal limited without intravenous contrast. Atherosclerosis of the aorta. Slight contour irregularity along the left lateral superior margin of the aortic arch similar to prior exam and suggestive of a penetrating ulcer. No surrounding hematoma or fat infiltration. Multichamber enlargement of the heart, which is primarily biatrial enlargement. Coronary artery and mitral annular calcification. Postsurgical changes of aortic valve replacement. Epicardial pacing wires noted as well as median sternotomy wires. Small right pleural effusion. Density of the liver consistent with borderline hepatic steatosis. Heterogeneity of liver parenchyma. Trace perihepatic ascites. Prominence of intrahepatic and extrahepatic bile ducts likely a reservoir effect in the post cholecystectomy state. On lung windows, trace apical emphysema. Dependent groundglass and more solid consolidation at the right lower lobe. Left lung clear. Minimal adherent debris in the upper trachea. On bone windows, degenerative changes of the spine. Anterior wedging deformity of T12, which is new from prior exam. IMPRESSION: 1. Interval development of a compression fracture of T12, new from prior exam. Correlate for point tenderness to assess for acuity. 2. Dependent groundglass and more solid consolidation in the right lower lobe with an associated small right pleural effusion. This raises concern for pneumonia with a parapneumonic effusion. Alternatively, this could relate to aspiration or extensive atelectasis. 3. Contour irregularity of the aortic arch raises concern for a penetrating ulcer. This is unchanged prior exam. No surrounding hematoma or fat infiltration. 4. Cardiomegaly. 5. Borderline hepatic steatosis. The report will be called/faxed according to standard departmental protocol. Electronically signed by: Darryl Bermeo M.D. 10/14/2017 8:15 AM Dictated Date/Time: 10/14/2017 8:06 AM
--- NOTE | 2017-10-14 08:32 | DIAGNOSTIC IMAGING REPORT ---
(BARIUM SWALLOW) ESOPHAGUS CLINICAL HISTORY: K21.9 Laryngopharyngeal reflux COMPARISON STUDY: Chest CT 10/14/2017. Barium swallow 10/18/2016. FLUOROSCOPY TIME: 0.9 minutes. 25 images submitted.. FINDINGS: The patient swallowed barium without difficulty. Small Zenker's diverticulum, unchanged. Otherwise, the contours of the hypopharynx are within normal limits. The esophagus is normal in course and caliber. Mild esophageal dysmotility. No hiatus hernia. No gastroesophageal reflux demonstrated during the examination. Cardiac valve prosthesis and poststernotomy changes. The barium tablet was not administered. IMPRESSION: 1. No change in the small Zenker's diverticulum. 2. Mild esophageal dysmotility. Electronically signed by: Raymon Piper M.D. 10/14/2017 8:31 AM Dictated Date/Time: 10/14/2017 8:29 AM
== END | disposition home or self-care (01) ==
LOC: C.CTS 07:27
PROVIDERS: ATTEND Surgery
DX: J39.2 Other diseases of pharynx (principal)

== ENCOUNTER 2017-10-16 11:20 | Inpatient (IN) | payer OTHER ==
--- NOTE | 2017-10-14 10:09 | PAT Medication Instructions ---
Service Date Oct 14, 2017. Current Home Medication List Acetaminophen Tab (Tylenol), 325 MG PO Q6 PRN for Pain or Fever Albuterol Hfa (Ventolin Hfa), 2-4 PUFFS INH Q6H PRN for SOB/Wheezing Azithromycin (Zithromax), 500 MG PO DAILY PRN for dental procedures Ferrous Sulfate (Kp Ferrous Sulfate), 325 MG PO BID Fluticasone Propionate (Flovent Hfa), 1 PUFF INH BID Home O2 Therapy (Oxygen), 2 LITERS NA PRN Ibuprofen (Advil), 200 MG PO Q6 PRN for Pain Ipratropium-Albuterol (Duoneb), 1 TREATMENT INH Q4H PRN for SOB/Wheezing Levothyroxine Sodium (Levothyroxine Sodium), 112 MCG PO QAM Magnesium Oxide (Mg Supplement (Magnesium), 500 MG PO BID Metoprolol Tartrate (Metoprolol Tartrate), 75 MG PO BID Ondansetron Hcl (Zofran), 4 MG PO for Nausea Potassium Chloride (Micro-K Ext Rel), 20 MEQ PO BID Tiotropium [place] (Spiriva Respimat), 2 PUFF INH QAM Torsemide (Demadex), 1 TAB PO QAM Medication Instructions For Your Scheduled Surgery -Continue as directed: Azithromycin (Zithromax), 500 MG PO DAILY PRN for dental procedures Home O2 Therapy (Oxygen), 2 LITERS NA PRN -Contact your surgeon's office for instructions for: Ibuprofen (Advil), 200 MG PO Q6 PRN for Pain - Hold the following medications the morning of surgery: Ferrous Sulfate (Kp Ferrous Sulfate), 325 MG PO BID Magnesium Oxide (Mg Supplement (Magnesium), 500 MG PO BID Potassium Chloride (Micro-K Ext Rel), 20 MEQ PO BID Torsemide (Demadex), 1 TAB PO QAM - Take the following medications the morning of surgery with a sip of water: Acetaminophen Tab (Tylenol), 325 MG PO Q6 PRN for Pain or Fever (if needed, can be taken up to four hours before surgery) Albuterol Hfa (Ventolin Hfa), 2-4 PUFFS INH Q6H PRN for SOB/Wheezing (if needed , and bring it with you to the hospital) Fluticasone Propionate (Flovent Hfa), 1 PUFF INH BID Ipratropium-Albuterol (Duoneb), 1 TREATMENT INH Q4H PRN for SOB/Wheezing (if needed) Levothyroxine Sodium (Levothyroxine Sodium), 112 MCG PO QAM Metoprolol Tartrate (Metoprolol Tartrate), 75 MG PO BID Ondansetron Hcl (Zofran), 4 MG PO for Nausea (if needed) Tiotropium [place] (Spiriva Respimat), 2 PUFF INH QAM - Take the following medications as scheduled the night before surgery: Acetaminophen Tab (Tylenol), 325 MG PO Q6 PRN for Pain or Fever (if needed) Albuterol Hfa (Ventolin Hfa), 2-4 PUFFS INH Q6H PRN for SOB/Wheezing (if needed) Ferrous Sulfate (Kp Ferrous Sulfate), 325 MG PO BID Fluticasone Propionate (Flovent Hfa), 1 PUFF INH BID Magnesium Oxide (Mg Supplement (Magnesium), 500 MG PO BID Metoprolol Tartrate (Metoprolol Tartrate), 75 MG PO BID Ondansetron Hcl (Zofran), 4 MG PO for Nausea (if needed) Potassium Chloride (Micro-K Ext Rel), 20 MEQ PO BID If you have any questions please call us at [phone] or [phone] or [phone]
[2017-10-14 11:03] LABS: BASO % 0.5 %; BASO ABS # 0.03 K/uL (0-0.2); EOS % 2.4 %; EOS ABS # 0.14 K/uL (0-0.5); HEMATOCRIT 40.5 % (37-47); HEMOGLOBIN 12.8 g/dL (12.0-16.0); IG# 0.01 K/uL (0.00-0.02); LYMPH % 23.2 %; LYMPH ABS # 1.36 K/uL (1.2-3.4); MEAN CELL VOLUME 95.7 fL (80-100); MEAN CORPUSCULAR HEMOGLOBIN 30.3 pg (25-34); MEAN CORPUSCULAR HGB CONC 31.6 g/dl (32-36); MEAN PLATELET VOLUME 9.9 fL (7.4-10.4); MONO % 18.3 %; MONO ABS # 1.07 K/uL (0.11-0.59); NEUT % 55.4 %; NEUT ABS # 3.24 K/uL (1.4-6.5); PLATELET COUNT 190 K/uL (130-400); RED CELL DISTRIBUTION WIDTH CV 14.5 % (11.5-14.5); RED CELL DISTRIBUTION WIDTH SD 50.8 fL (36.4-46.3); WHITE BLOOD COUNT 5.85 K/uL (4.8-10.8)
[2017-10-14 11:33] LABS: CALCIUM 9.5 mg/dl (8.5-10.1); CREATININE 0.85 mg/dl (0.60-1.20)
[~2017-10-16] VITALS: Ht 162.6 cm; Wt 78.6 kg
[~2017-10-16 11:20] MED LIST changes: -COLE1TAB PO; +LACTATED RINGER'S 1000ML 1,000 ML IV SCH; -LIDOCAINE HCL 2% JELLY 30 ML TUBE EXT ONE; -PANT1TAB3 PO; -QUET1TAB30 PO; -TIZA2CAP PO; -XRL20 PO
[2017-10-16 11:57] VITALS: BP 171/84; PULSE 54; TEMP 36.7; O2SAT 99; Ht 162.6 cm; Wt 78.6 kg
[2017-10-16] MEDS ORDERED: LIDOCAINE HCL 2% 2 ML VIAL (20MG/ML) ONE (12:27)
[2017-10-16] MEDS ORDERED: ROCURONIUM BROMIDE 10 MG/ML 5 ML VIAL IV ONE (12:27)
[2017-10-16] MEDS ORDERED: PROPOFOL IV EMULSION 10 MG/ML 20 ML VIAL IV ONE (12:27)
[2017-10-16] MEDS ORDERED: FENTANYL CITRATE INJ 50 MCG/1 ML 2 ML VIAL ONE (12:28)
[2017-10-16] MEDS ORDERED: MIDAZOLAM HCL 1 MG/ML 2ML VIAL ONE (12:28)
[2017-10-16] MEDS ORDERED: BUPIVACAINE/EPINEPHRINE 0.5% MPF 1:200,000 30 ML VIAL ONE (12:30)
[2017-10-16] MEDS ORDERED: SODIUM CHLORIDE 0.9% PF 50 ML VIAL ONE (12:31)
--- NOTE | 2017-10-16 12:35 | History & Physical Bridge Note ---
H&P Re-Evaluation Bridge Note: I have examined the patient, reviewed the History & Physical and in the interval since the performance of the History & Physical I have noted the following changes of clinical significance: No changes noted
[2017-10-16] MEDS ORDERED: EpHEDrine SULFATE INJ 50 MG/ML AMP ONE (13:29)
[2017-10-16] MEDS ORDERED: ONDANSETRON INJ 2 MG/ML 2 ML VIAL ONE (13:29)
[2017-10-16] MEDS ORDERED: GLYCOPYRROLATE INJ 0.2 MG/ML VIAL ONE ×2 (13:29→14:16)
[2017-10-16] MEDS ORDERED: NEOSTIGMINE METHYLSULFATE 5 MG/5 ML SYR ONE (14:16)
--- NOTE | 2017-10-16 14:24 | [facility] Post Operative Brief Note ---
Immediate Operative Summary Operative Date Oct 16, 2017. Pre-Operative Diagnosis Circopharyngeal Hypertrophy with Zenker's Diverticulum Post-Operative Diagnosis Same as preop Procedure(s) Performed Cricopharyngeal Myotomy Left Side Approach Surgeon Dr. Ramirez Clinical Academic Allergist Surgeon(s) Deangelo Rojo PA-C Estimated Blood Loss 50 ml Findings Consistent with Post-Op Diagnosis Specimens A. Circopharyngeal Muscle Drains None Anesthesia Type General Complication(s) none
[2017-10-16] MEDS ORDERED: ALBUTEROL HFA 8 GM INHALER INH PRN (14:30)
[2017-10-16] MEDS: KETOROLAC TROMETHAMINE 15 MG/ML VIAL IV. SCH ×2 (14:30→21:06)
[2017-10-16] MEDS ORDERED: ONDANSETRON INJ 2 MG/ML 2 ML VIAL IV PRN ×2 (14:30→15:00)
[2017-10-16] MEDS ORDERED: MoRPHine SULFATE 2 MG/ML CARP IV PRN (14:30)
[2017-10-16] MEDS ORDERED: ALBUT/IPRATROP 3MG/0.5MG NEB 3 ML VIAL INH PRN (14:30)
[2017-10-16] MEDS ORDERED: HYDROmorphone INJ 1 MG/ML SYR ONE (14:54)
[2017-10-16] MEDS ORDERED: HYDROmorphone INJ 2 MG/ML SYR/VIAL IV PRN (15:00)
[2017-10-16] MEDS ORDERED: ATROPINE SULFATE 0.1 MG/ML 5ML SYR IV PRN (15:00)
--- NOTE | 2017-10-16 15:07 | OPERATIVE REPORT ---
DATE OF OPERATION: 10/16/2017 PREOPERATIVE DIAGNOSES: Cricopharyngeus muscle hypertrophy with dysphagia and small Zenker's diverticulum. POSTOPERATIVE DIAGNOSES: Same. PROCEDURE: Cricopharyngeal myotomy. SURGEON: Joel Ramirez MD. UKE OPERATOR: RICHY Bruner. (MrJanny Rojo was present for the entire case and was nurse first assist and closed the skin incision at the conclusion.) ANESTHESIA: General anesthesia with endotracheal intubation. 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 She has multiple medical problems; however, she is really having difficulty swallowing now and was found to have marked cricopharyngeus hypertrophy with a Zenker's diverticulum. It was not large enough to do an endoscopic approach to this. I had a long discussion with the patient and we elected to proceed with an open cricopharyngeal myotomy. On 10/16/2017, the patient underwent an uncomplicated cricopharyngeal myotomy. We easily identified the small Zenker's diverticulum; however, it was too small to do a diverticulectomy or even to suspend it. This flattened out quite nicely after we did the myotomy. The patient tolerated well and was extubated in the room. PROCEDURE IN DETAIL: The patient was brought to operating room and laid in supine position. General anesthesia was induced and endotracheal intubation was performed. She was prepped and draped in usual sterile fashion. An appropriate timeout was taken and prophylactic antibiotics were given. An incision was made along the left side of the sternocleidomastoid muscle. We went anterior to the carotid sheath. It should be noted that the patient has tricuspid regurgitation and the veins in her neck were quite large, even the superficial. We ended up tying off some of the anterior cervical veins. We then came down and identified the esophagus fairly easily. 36 bougie was inserted. 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 We identified the Zenker's diverticulum which was really posteriorly based. We then bluntly dissected away with a peanut away from the posterior attachments along the spine. We then identified the cricopharyngeus muscle rather easily. Using Metzenbaum scissors, I carefully divided this. I cut a rather large portion out and sent it off to the lab. This opened up quite nicely. We removed all the fibers between the cricopharyngeus muscle and the Zenker's and had 1 area which was free of muscle. There was no significant bleeding really in this case. We watched this for several minutes and it was completely dry. Deeper tissues were closed with 3-0 Vicryl in a running continuous fashion and the platysma muscle was reapproximated with 3-0 Vicryl in a running continuous fashion. Skin was closed with 4-0 Monocryl in running subcuticular fashion. She tolerated it quite well. I attest to the content of the Intraoperative Record and any orders documented therein. Any exception s are noted below.
[2017-10-16] MEDS ORDERED: METOCLOPRAMIDE HCL INJ 5 MG/ML 2 ML VIAL ONE (15:13)
[2017-10-16] MEDS ORDERED: HydrALAZINE HCL 20 MG/ML VIAL IV. PRN ×2 (15:30→17:30)
--- NOTE | 2017-10-16 15:45 | Anesthesiology Progress Note ---
Anesthesia Post Op Note Date & Time Oct 16, 2017 at 15:45 Vital Signs Pain Intensity: 2 Vital Signs Past 12 Hours Date Time Temp Pulse Resp B/P (MAP) Pulse Ox O2 Delivery O2 Flow Rate FiO2 10/16/17 15:36 36.3 63 16 175/97 (124) 93 Nasal Cannula 3 10/16/17 15:29 173/105 10/16/17 15:27 63 16 10/16/17 15:27 64 16 91 10/16/17 15:26 179/107 10/16/17 15:22 63 18 10/16/17 15:22 62 18 97 10/16/17 15:21 147/88 10/16/17 15:17 61 17 10/16/17 15:17 61 17 95 10/16/17 15:16 182/102 10/16/17 15:12 58 17 10/16/17 15:12 61 17 95 10/16/17 15:11 173/100 10/16/17 15:07 64 19 94 10/16/17 15:07 60 19 10/16/17 15:06 62 13 10/16/17 15:06 62 13 167/96 96 10/16/17 15:01 67 14 170/107 94 10/16/17 15:01 67 14 10/16/17 14:56 62 18 10/16/17 14:56 62 18 172/97 94 10/16/17 14:51 70 12 10/16/17 14:51 70 12 168/105 95 10/16/17 14:48 174/102 10/16/17 14:46 72 15 183/106 95 10/16/17 14:46 71 15 10/16/17 14:41 65 18 10/16/17 14:41 65 18 95 10/16/17 14:41 36.2 64 18 150/97 (120) 95 Oxymask 10 10/16/17 11:57 36.7 54 20 171/84 99 Nasal Cannula 3 Notes Mental Status: alert / awake / arousable, participated in evaluation Pt Amnestic to Procedure: Yes Nausea / Vomiting: adequately controlled Pain: adequately controlled Airway Patency, RR, SpO2: stable & adequate BP & HR: stable & adequate Hydration State: stable & adequate Anesthetic Complications: no major complications apparent
[2017-10-16 16:15] VITALS: BP 99/46; PULSE 86; TEMP 36.8; O2SAT 97
[2017-10-16 16:30] VITALS: BP 131/63; PULSE 65; TEMP 36.6; O2SAT 96
[2017-10-16] MEDS ORDERED: TORSEMIDE 20 MG TAB PO ONE (17:23)
[2017-10-16] MEDS ORDERED: FUROSEMIDE INJ 20 MG in SYRINGE 0 ML IV ONE (17:43)
[2017-10-16] MEDS ORDERED: METOPROLOL TARTRATE 1 MG/ML VIAL IV. SCH ×2 (18:00)
[2017-10-16 18:07] LABS: INR 1.3 (0.9-1.1)
[2017-10-16] MEDS: D5W AND 1/2NSS 1,000 ML IV SCH (18:14)
[2017-10-16] MEDS: ACETAMINOPHEN IV 1,000 MG in EMPTY BAG 0 ML IV SCH (18:15)
[2017-10-16] MEDS: METOPROLOL TARTRATE 1 MG/ML VIAL IV. SCH ×2 (18:17→21:06)
--- NOTE | 2017-10-16 18:32 | CARDIOLOGY CONSULTATION ---
DATE OF CONSULTATION: 10/16/2017 TIME: 17:27 p.m. PRIMARY HOG RIBBER: Yogi Roberson MD CONSULTING PHYSICIAN: Joel Ramirez MD REASON FOR CONSULTATION: Hypertension, bioprosthetic aortic valve, CAD, right-sided heart failure. HISTORY OF PRESENT ILLNESS: Mrs. Wilcox is a pleasant 77-year-old female with history significant for nonobstructive CAD, right-sided heart failure, hypertension, dyslipidemia, tricuspid regurgitation, paroxysmal atrial fibrillation, and bioprosthetic aortic valve replacement. She was admitted today following a cricopharyngeal myotomy from the left side approach. She has some discomfort of her left neck, but no significant pain. She denies shortness of breath, syncope, near syncope, palpitations, chest pain, or lower extremity edema. She states that she typically has some abdominal bloating when she retains fluid and this is a chronic issue. She also has chronic nausea and vomiting intermittently. Her last dose of diuretic, torsemide, was yesterday. She took her metoprolol 75 mg this morning. She was on Xarelto for paroxysmal atrial fibrillation, but has self discontinued it approximately 2 months ago secondary to recurrent epistaxis. She denies melena, hematochezia, hematuria, or other bleeding. She has not yet tried to swallow other than ice chips as she is nervous following surgery. Surgery was performed secondary to difficulty swallowing. She has been hypertensive since surgery has been completed but is asymptomatic from her hypertension. She was placed on metoprolol 2.5 mg IV q. 6 hours as per the primary service. REVIEW OF SYSTEMS: As above. Review of systems is otherwise negative/unremarkable. PAST MEDICAL HISTORY: 1. Hypertension. 2. Dyslipidemia, statin intolerant. 3. Right-sided heart failure. 4. [id number] tricuspid regurgitation. 5. Pulmonary hypertension. 6. Bioprosthetic aortic valve replacement September 2010. 7. Nonobstructive CAD, diagnosed September 2010. 8. Zenker's diverticulum. 9. Paroxysmal atrial fibrillation, but self-discontinued anticoagulation secondary to epistaxis. 10. Gastric ulcer. 11. Anemia. 12. Mild COPD per records. 13. Diabetes. 14. Yin's thyroiditis. 15. Hiatal hernia. 16. Laryngopharyngeal reflux. 17. Osteoporosis. 18. Osteoarthritis. 19. Sleep apnea. HOME MEDICATIONS: Include torsemide 10 mg daily, metoprolol 75 mg twice daily, potassium chloride 20 mEq twice daily, magnesium 500 mg twice daily. Please see H&P for full list. INPATIENT MEDICATIONS: Include Lovenox 40 mg subQ daily, dextrose with sodium chloride 100 mL per hour. ALLERGIES: PENICILLIN, WHICH WAS AN ANAPHYLACTIC REACTION. SHE STATES THAT SHE DOES NOT TOLERATE CLINDAMYCIN. STATINS CAUSE MYALGIAS. SOCIAL HISTORY: Quit smoking approximately 20 years ago. No alcohol. She lives alone, but her brother, Yonny lives next door. He was present at the bedside. She is and . She has 4 daughters; 2 in [place], 1 in [place], 1 in [place]. 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 FAMILY HISTORY: Mother had DC at the age of 53. Aortic valve disorders also run in the family. PHYSICAL EXAMINATION: VITAL SIGNS: Temperature 36.3 degrees, heart rate 61 beats per minute, respiration rate 21, blood pressure 177/101 mmHg, oxygen saturation is 92%. Weight 73.5 kg. GENERAL: No acute distress. She is alert. HEENT: Anicteric sclerae. NECK: The left side of the neck has surgical dressing in place. The right side has normal carotid upstroke and no bruit. No appreciated JVD. CARDIAC EXAM: No ventricular heave. Regular. Normal S1, S2. 1/6 early peaking systolic ejection murmur, best heard at the right upper sternal border. No rubs or gallops were auscultated. PMI was nonpalpable. LUNGS: Bibasilar rales, otherwise clear. ABDOMEN: Soft, nontender, nondistended. Hypoactive bowel sounds. No bruits. EXTREMITIES: Trace bilateral lower extremity edema. No cyanosis. 2+ radial pulses bilaterally. 1+ dorsalis pedis pulses bilaterally. PSYCHIATRIC: Affect appears appropriate. LABORATORY DATA: White blood cell count is 5.85, hemoglobin 12.8, platelets 190. Sodium 140, potassium 4, BUN 14, creatinine 0.85. Echocardiogram 03/17/2017 reported as normal left ventricular systolic function. Right ventricle was mildly dilated with mildly reduced systolic function. Type 2 diastolic dysfunction. Mild MR. Severe tricuspid regurgitation. Mildly elevated right ventricular systolic pressure. ASSESSMENT AND PLAN: 1. Hypertension: Blood pressure is elevated. Deangelo Rojo of the primary service stated that she is not allowed to take any type of pills; therefore, requests IV medications only. We will change metoprolol frequency to every 4 hours. Could consider increasing to 5 mg IV metoprolol; however, her heart rate is low 60s currently. We will also write p.r.n. order of hydralazine 10 mg IV q. 2 hours for her systolic blood pressure greater than 170. We will re-add her diuretic as well which may improve her blood pressure control. When able, we would recommend resuming her oral outpatient medications. 2. Chronic diastolic congestive heart failure/right right-sided heart failure: She has rales and edema. She did not have her diuretic today. We will write for Lasix IV 20 mg x1 tonight. Can reassess in the morning. Can resume torsemide when okay to take pills. 3. Bioprosthetic aortic valve: No significant murmur on exam. Can be followed as an outpatient. 4. Tricuspid regurgitation: Followed by Dr. Roberson. She has been evaluated by CT Surgery and conservative medical therapy was recommended. 5. Paroxysmal atrial fibrillation: Currently in sinus rhythm. She has self discontinue anticoagulation therapy due to epistaxis. Continue beta rox as noted above. 6. Disposition: Cardiology will continue to follow. Dr. Roberson will resume her cardiology care tomorrow. Thank you for allowing me to participate in the care of Mrs. Wilcox. The patient's care has been discussed with Deangelo Rojo of the primary service.
[2017-10-16 18:50] VITALS: BP 132/92; PULSE 65; TEMP 36.3; O2SAT 94
[2017-10-16] MEDS: METOCLOPRAMIDE HCL INJ 5 MG/ML 2 ML VIAL IV. SCH (21:06)
[2017-10-16] MEDS: FLUTICASONE HFA 110MCG INHALER INH SCH (21:07)
[2017-10-16 23:45] VITALS: BP 164/94; PULSE 66; TEMP 36.5; O2SAT 93
[2017-10-17] VITALS (7 sets, daily range): BP systolic 139–178; BP diastolic 74–108; PULSE 60–89; TEMP 36.3–36.5; O2SAT 94–96
[2017-10-17] MEDS: ACETAMINOPHEN IV 1,000 MG in EMPTY BAG 0 ML IV SCH (02:13)
[2017-10-17] MEDS: METOPROLOL TARTRATE 1 MG/ML VIAL IV. SCH ×3 (02:16→13:02)
[2017-10-17] MEDS: D5W AND 1/2NSS 1,000 ML IV SCH (05:24)
[2017-10-17] MEDS: METOCLOPRAMIDE HCL INJ 5 MG/ML 2 ML VIAL IV. SCH ×2 (06:03→13:02)
[2017-10-17] MEDS: KETOROLAC TROMETHAMINE 15 MG/ML VIAL IV. SCH ×2 (06:04→13:02)
[2017-10-17] MEDS: FLUTICASONE HFA 110MCG INHALER INH SCH (08:20)
--- NOTE | 2017-10-17 08:57 | Cardiology Follow-Up ---
Subjective Date of Service: Oct 17, 2017. Pt evaluation today including: conversation w/ patient, physical exam, chart review, lab review, review of studies, review of inpatient medication list, conversation w/ attending History of Present Illness Patient is post-op day 1 following a cricopharyngeal myotomy from the left side approach. She reports that she is feeling well overall. She denies any chest discomfort or shortness of breath. She denies any lower extremity edema. She denies palpitations, lightheadedness, syncope, or presyncope. She denies abnormal bleeding or cerebrovascular symptoms. There are plans for a swallowing test later today to determine if she will be able to resume taking pills. Social History Smoking Status: Former Smoker History of Alcohol Use: No Objective Vital Signs Past 12 Hours Date Time Temp Pulse Resp B/P (MAP) Pulse Ox O2 Delivery O2 Flow Rate FiO2 10/17/17 06:30 68 154/92 (112) 10/17/17 05:58 61 178/108 (131) 10/17/17 05:56 61 178/108 10/17/17 04:00 Nasal Cannula 3.0 10/17/17 03:28 36.3 60 18 161/90 (113) 95 Nasal Cannula 3.0 10/17/17 02:16 64 148/85 10/17/17 02:13 64 148/85 (106) 10/16/17 23:59 Nasal Cannula 3.0 10/16/17 23:45 36.5 66 20 164/94 (117) 93 Nasal Cannula 3.0 10/16/17 21:06 65 132/92 Last Recorded Weight-Kilograms: 78.600 Physical Exam Constitutional: Alert, oriented, in no acute distress HEENT: Head is atraumatic and normocephalic. EOMs intact. Sclera anicteric. Face is symmetric. No perioral cyanosis. Mucous membranes moist. Neck: The left side of the neck has surgical dressing in place. Prominent V wave Pulmonary: Normal respiratory effort, clear to auscultation Cardiac: Regular rate and rhythm, normal S1 and S2, no gallops, no rubs. 1/6 systolic murmur at the right upper sternal border Extremities: No significant lower extremity edema bilaterally. No clubbing or cyanosis. Pulses intact. Varicose veins noted. Abdomen: Normal bowel sounds, soft, non-tender, no abdominal mass palpated Skin: Normal skin color, turgor, and pigmentation, no rash Neurological: Oriented to person, place, and time Data Laboratory Results: Last 24 Hours Test 10/16/17 17:22 Prothrombin Time 13.5 SECONDS Prothromb Time International Ratio 1.3 Assessment and Plan ASSESSMENT/PLAN: 1. Hypertension: Patient continues to be on IV medications only, but there are plans for a swallowing test later today to see if she can resume taking pills. Recommend continuing 2.5 mg IV metoprolol q 4 hours as well as 10 mg IV hydralazine PRN for systolic pressure >170 mmHg. Resume usual oral medication when safe to swallow. 2. Chronic diastolic congestive heart failure/right right-sided heart failure: She received a dose of IV Lasix yesterday and appears euvolemic on examination today. Recommend resuming usual PO torsemide dose when okay to take pills. 3. Bioprosthetic aortic valve: This can be followed as an outpatient. 4. Tricuspid regurgitation: She has been evaluated by CT Surgery and conservative medical therapy was recommended. 5. Paroxysmal atrial fibrillation: Currently in sinus rhythm. She has self discontinue anticoagulation therapy due to epistaxis. Continue beta rox as noted above. The patient was discussed with Dr. Roberson, and the plan was made in collaboration with him.
[2017-10-17] MEDS ORDERED: TORSEMIDE 20 MG TAB PO SCH (09:00)
[2017-10-17] MEDS ORDERED: ENOXAPARIN 40 MG/0.4 ML SYR SQ SCH (09:00)
--- NOTE | 2017-10-17 10:17 | SURGERY PROGRESS NOTE ---
DATE: 10/17/2017 Ms. Wilcox is seen today on 10/17/2017. She underwent an open esophageal myotomy via left neck incision yesterday. This went very well. She looks great today. Her voice actually sounds better. She states she has had no difficulty swallowing liquids. We are going to check a barium swallow today. If it looks good, we will let her resume her pills and a soft diet and will allow her to be discharged later today. I am quite happy with her neck and I am quite happy with her in general. She looks quite good.
--- NOTE | 2017-10-17 10:51 | DIAGNOSTIC IMAGING REPORT ---
GASTROGRAFIN AND BARIUM SWALLOW CLINICAL HISTORY: cricopharyngeal myotomy COMPARISON STUDY: Barium swallow dated 10/14/2017 FLUOROSCOPY TIME: 0.7 minutes. NUMBER OF FLUOROSCOPIC IMAGES: 18 FINDINGS: The patient was initially administered Gastrografin. No Gastrografin extravasation was delineated. No esophageal masses were evident. The patient was then switched to barium. There is no evidence of stricture. There is no evidence of extravasation. The patient's priors Zenker's diverticulum appears significantly smaller. IMPRESSION: No evidence of contrast extravasation status post cricopharyngeal myotomy. Electronically signed by: Eder Johnson M.D. 10/17/2017 10:49 AM Dictated Date/Time: 10/17/2017 10:37 AM
--- NOTE | 2017-10-17 12:36 | DISCHARGE SUMMARY ---
DISCHARGE DIAGNOSES: 1. 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 2. History of atrial fibrillation. 3. Oxygen dependent chronic obstructive pulmonary disease. 4. Coronary artery disease. 5. Tricuspid regurgitation. 6. Hypertension. 7. Hyperlipidemia. 8. Right-sided heart failure. 9. Pulmonary hypertension. 10. Gastric ulcer. 11. Anemia. 12. Diabetes mellitus. 13. History of Yin thyroiditis. 14. Small hiatal hernia. 15. Osteoporosis. 16. Osteoarthritis. 17. Sleep apnea. 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 I believe this woman is aspirating, which is contributing to her pulmonary problems. After a long discussion in the office and discussing this with her strategic advisor, I elected to proceed with a cricopharyngeal myotomy. On 10/16/2017, the patient underwent an uncomplicated cricopharyngeal myotomy from a left-sided approach in the neck. This went very well. We lost no blood. She tolerated it well. She tolerated clear liquids overnight. The following morning, her voice was actually better as she has been somewhat hoarse. We did a barium swallow which showed the cricopharyngeal myotomy looked very good. There was no extravasation and the Zenker diverticulum had almost disappeared. I would like her to stay on a soft diet. We are going to discharge her today. I have been quite happy with her. The only complaint she has that she has got some laxity of her left lower lip. We probably stretched the branch of the facial nerve. I told her this would resolve with time. I will see her back in the office next week to check her wound. She is really not having much in the way of pain, so we gave her no pain medication. She is to resume all of her regular medications of which there are many.
--- NOTE | 2017-10-17 12:37 | Discharge Instructions ---
Discharge Instructions Date of Service Oct 17, 2017. Admission Reason for Admission: Cricopharyngeal Hypertrophy Discharge Discharge Diagnosis / Problem: Cricopharyngeal Hypertrophy Discharge Goals Goal(s): Improve function Activity Recommendations Activity Limitations: as noted below Lifting Limitations: none . Instructions / Follow-Up Instructions / Follow-Up 1. You may remove dressing in 2 days and shower thereafter. No tub baths. 2. Maintain a liquid diet until specified otherwise by Dr. Ramirez. Do not eat any food that required chewing. 3. Office appointment with Dr. Ramirez in 1-2 week. Office will jay jay you with date and time of appointment. Current Hospital Diet Patient's current hospital diet: Clear Liquid Diet Discharge Diet Recommended Diet: Full Liquid Diet Procedures Procedures Performed: Cricopharyngeal Myotomy Left Side Approach Pending Studies Studies pending at discharge: no Medical Emergencies . Who to Call and When: Medical Emergencies: If at any time you feel your situation is an emergency, please call 911 immediately. . Non-Emergent Contact Non-Emergency issues call your: Surgeon Call Non-Emergent contact if: you have a fever, your pain is not controlled, wound has increased drainage . "Provider Documentation" section prepared by Deangelo Rojo. .
== END 2017-10-17 13:45 | disposition home or self-care (01) | DRG 982 ==
LOC: C.ACU 11:20 → C.2T 15:15 → ENRESERVTM 15:24 → ENRESERVDT 15:24 → CANRESERV 15:24 → EDBEDREQSVC 15:24 → CANBEDREQ 15:25 → ENRESERV 15:51
PROVIDERS: ADMIT Surgery; ATTEND Surgery
PROC: 0K830ZZ Division of Left Neck Muscle, Open Approach (ICD-10-PCS; principal; 2017-10-16 13:45)
DX: J39.2 Other diseases of pharynx (principal); I50.32 Chronic diastolic (congestive) heart failure; K22.5 Diverticulum of esophagus, acquired; K21.9 Gastro-esophageal reflux disease without esophagitis; K22.4 Dyskinesia of esophagus; K44.9 Diaphragmatic hernia without obstruction or gangrene; I07.1 Rheumatic tricuspid insufficiency; I11.0 Hypertensive heart disease with heart failure; I25.10 Atherosclerotic heart disease of native coronary artery without angina pectoris; I48.0 Paroxysmal atrial fibrillation; I27.20 Pulmonary hypertension, unspecified; E78.5 Hyperlipidemia, unspecified; E06.3 Autoimmune thyroiditis; D64.9 Anemia, unspecified; J44.9 Chronic obstructive pulmonary disease, unspecified; M81.0 Age-related osteoporosis without current pathological fracture; I65.23 Occlusion and stenosis of bilateral carotid arteries; F32.9 Major depressive disorder, single episode, unspecified; F41.9 Anxiety disorder, unspecified; E66.9 Obesity, unspecified; Z68.28 Body mass index [BMI] 28.0-28.9, adult; Z99.81 Dependence on supplemental oxygen; Z79.51 Long term (current) use of inhaled steroids; Z79.899 Other long term (current) drug therapy; Z95.2 Presence of prosthetic heart valve; Z90.49 Acquired absence of other specified parts of digestive tract; Z90.711 Acquired absence of uterus with remaining cervical stump; Z98.890 Other specified postprocedural states; Z87.891 Personal history of nicotine dependence; Z78.0 Asymptomatic menopausal state; Z88.0 Allergy status to penicillin; Z88.1 Allergy status to other antibiotic agents; Z88.8 Allergy status to other drugs, medicaments and biological substances; Z91.013 Allergy to seafood; Z80.1 Family history of malignant neoplasm of trachea, bronchus and lung; Z82.5 Family history of asthma and other chronic lower respiratory diseases; Z82.49 Family history of ischemic heart disease and other diseases of the circulatory system; Z83.49 Family history of other endocrine, nutritional and metabolic diseases; Z82.62 Family history of osteoporosis; Z83.1 Family history of other infectious and parasitic diseases

== ENCOUNTER → 2017-12-04 | Outpatient (CLI) | payer OTHER ==
[~2017-12-04] MED LIST changes: -LACTATED RINGER'S 1000ML 1,000 ML IV SCH
--- NOTE | 2017-12-04 13:09 | DIAGNOSTIC IMAGING REPORT ---
CHEST 2 VIEWS ROUTINE CLINICAL HISTORY: R05 [id number] Shortness of [id number] COMPARISON STUDY: 07/24/2017 FINDINGS: The heart remains mildly enlarged. There is persistent aortic tortuosity/ectasia. There is mild superior mediastinal widening unchanged the prior study. There is aortic valve prosthesis. There is a small right pleural effusion. This was described in the prior October 14, [address] There is a persistent T12 compression fracture.[ IMPRESSION: 1. Persistent mild cardiomegaly 2. Small right pleural effusion. Electronically signed by: Eder Johnson M.D. 12/04/2017 1:08 PM Dictated Date/Time: 12/04/2017 1:06 PM
== END | disposition home or self-care (01) ==
LOC: C.RAD1850 11:42
PROVIDERS: ATTEND Physician Assistant
DX: J90 Pleural effusion, not elsewhere classified (principal); I51.7 Cardiomegaly; R05 Cough; R06.02 Shortness of breath

== ENCOUNTER 2018-08-25 22:07 | Inpatient (IN) ==
[2018-08-25] MEDS ORDERED: ALBUT/IPRATROP 3MG/0.5MG NEB 3 ML VIAL NEB STA (22:17)
--- NOTE | 2018-08-25 22:27 | Emergency Department Note ---
Entered by Ruid Jc acting as a scribe for History of Present Illness General Chief complaint: Chest Pain Time Seen by Provider: 08/25/18 22:11 Source: patient and EMS History of Present Illness Provider complaint: shortness of breath Onset (ago): hour(s) (today) Location: chest Quality: + other (shortness of breath) Exacerbated By: + other (laying flat) Associated symptoms: + chest pain (chest pressure); no fever/chills The patient is an 78 year old female who presents to the Emergency Room with complaints of shortness of breath today. The patient states that she was sick a couple of weeks ago and has had intermittent weakness and low Oxygen saturations since. She also reports having a loss of appetite. The patient states that laying flat exacerbates her shortness of breath. The patient also reports that she had chest pressure earlier, but denies being febrile. The patient currently denies having any chest pressure. She states that she wears 3L of Oxygen at home but reports that her doctor wanted her to increase it to 4L. She reports that she takes Metoprolol but recently had her dosage decreased. She states that she has a history of COPD and is a former smoker. She reports that she last saw her PCP a couple of weeks ago and last saw Dr. Roberson-Cardiology 1 year ago. Per EMS, the patient was 80% on room air prior to arrival. Home Medications Home Medications Medication Instructions Recorded Confirmed Type acetaminophen [Tylenol] 650 mg PO Q6H PRN 08/25/18 08/25/18 History albuterol sulfate [Ventolin HFA] 2 puff INHALATION Q4H PRN 08/25/18 08/25/18 History azithromycin 500 mg PO DIRECTED 08/25/18 08/25/18 History baclofen 10 - 20 mg PO DAILY PRN 08/25/18 08/25/18 History ferrous sulfate 325 mg PO DAILY 08/25/18 08/25/18 History fluticasone [Flovent HFA] 1 puff INHALATION BID 08/25/18 08/25/18 History ipratropium-albuterol 3 ml INHALATION Q4H 08/25/18 08/25/18 History levothyroxine 112 mcg PO DAILY 08/25/18 08/25/18 History loratadine 10 mg PO DAILY PRN 08/25/18 08/25/18 History magnesium 500 mg PO BID 08/25/18 08/25/18 History metoprolol tartrate 50 mg PO BID 08/25/18 08/25/18 History naproxen 500 mg PO Q12H PRN 08/25/18 08/25/18 History ondansetron HCl [Zofran] 4 mg PO Q6H PRN 08/25/18 08/25/18 History potassium chloride 20 meq PO BID 08/25/18 08/25/18 History quetiapine 12.5 mg PO Q2D 08/25/18 08/25/18 History torsemide 10 mg PO DAILY 08/25/18 08/25/18 History Allergies Allergy/AdvReac Type Severity Reaction Status Date / Time Penicillins Allergy Severe HIVES,ANAPH Verified 08/25/18 23:07 YLAXIS shellfish derived Allergy Severe DIFFICULTY Verified 08/25/18 23:07 SWALLOWING & HIVES ezetimibe AdvReac Mild INTOLERANCE Verified 08/25/18 23:07 TO VYTORIN simvastatin AdvReac Mild INTOLERANCE Verified 08/25/18 23:07 clindamycin AdvReac Unknown upset Unverified 08/25/18 23:07 stomach pravastatin AdvReac Unknown muscle Unverified 08/25/18 23:07 aches rosuvastatin AdvReac Unknown muscle Unverified 08/25/18 23:07 aches Past Med/Surg History Medical History COPD (chronic obstructive pulmonary disease) (Chronic) Surgical History Aortic valve replaced (Resolved) Family History Other No pertinent family history Social History Current Living Situation: Alone Other Information That Helps Us Care for You: No Feels Safe at Home: Yes Safety Concerns: Feels Safe At This Time Smoking Status: Former smoker Tobacco Type: cigarettes Do You Dip or Chew Tobacco: No Second Hand Exposure: No Tobacco Cessation Education Requested by Patient: No Hx Alcohol Use: No Hx Substance Use: No Beliefs That Will Affect Care: None Communication Ability: Effective Review of Systems See HPI for pertinent positives & negatives. and A total of 10 systems reviewed and were otherwise negative Physical Exam Vital Signs Vital Signs - 24 hr 08/25/18 22:16 08/25/18 22:17 08/25/18 22:29 Temperature 36.5 C Temperature Source Oral Sepsis Recent Fever Within 48 Hours No Sepsis New/Unexplained Change in Mental Status No Sepsis Action Taken by Nursing No Action Required Pulse Rate 40 L 71 43 L Pulse Rate [Right Finger] Pulse Rhythm Irregular Respiratory Rate 26 H 25 H 18 Respiratory Effort / Characteristics Labored Respiratory Depth Shallow Respiratory Pattern Blood Pressure 105/50 L 105/50 L Blood Pressure [Left Arm] Blood Pressure Mean 68 68 Blood Pressure Mean [Left Arm] Blood Pressure Position [Left Arm] Pulse Oximetry 96 95 97 Oxygen Delivery Method Nasal Cannula Oxygen Flow Rate 6 08/25/18 22:30 08/25/18 23:00 08/25/18 23:30 Temperature Temperature Source Sepsis Recent Fever Within 48 Hours Sepsis New/Unexplained Change in Mental Status Sepsis Action Taken by Nursing Pulse Rate 42 L 42 L 44 L Pulse Rate [Right Finger] Pulse Rhythm Respiratory Rate 16 19 14 Respiratory Effort / Characteristics Respiratory Depth Respiratory Pattern Blood Pressure Blood Pressure [Left Arm] Blood Pressure Mean Blood Pressure Mean [Left Arm] Blood Pressure Position [Left Arm] Pulse Oximetry 96 94 95 Oxygen Delivery Method Nasal Cannula Oxygen Flow Rate 5 08/26/18 00:00 08/26/18 00:01 08/26/18 00:02 Temperature Temperature Source Sepsis Recent Fever Within 48 Hours Sepsis New/Unexplained Change in Mental Status Sepsis Action Taken by Nursing Pulse Rate 43 L 38 L 38 L Pulse Rate [Right Finger] Pulse Rhythm Respiratory Rate 13 13 15 Respiratory Effort / Characteristics Respiratory Depth Respiratory Pattern Blood Pressure 144/63 H Blood Pressure [Left Arm] Blood Pressure Mean 90 Blood Pressure Mean [Left Arm] Blood Pressure Position [Left Arm] Pulse Oximetry Oxygen Delivery Method Oxygen Flow Rate 08/26/18 00:30 08/26/18 00:31 08/26/18 01:00 Temperature Temperature Source Sepsis Recent Fever Within 48 Hours Sepsis New/Unexplained Change in Mental Status Sepsis Action Taken by Nursing Pulse Rate 47 L 48 L 60 Pulse Rate [Right Finger] Pulse Rhythm Respiratory Rate 18 16 20 Respiratory Effort / Characteristics Respiratory Depth Respiratory Pattern Blood Pressure 135/72 Blood Pressure [Left Arm] Blood Pressure Mean 93 Blood Pressure Mean [Left Arm] Blood Pressure Position [Left Arm] Pulse Oximetry 93 91 Oxygen Delivery Method Oxygen Flow Rate 08/26/18 01:21 08/26/18 01:30 08/26/18 01:32 Temperature Temperature Source Sepsis Recent Fever Within 48 Hours Sepsis New/Unexplained Change in Mental Status Sepsis Action Taken by Nursing Pulse Rate 46 L 46 L 47 L Pulse Rate [Right Finger] Pulse Rhythm Respiratory Rate 19 18 21 Respiratory Effort / Characteristics Respiratory Depth Respiratory Pattern Blood Pressure 149/81 H 123/60 Blood Pressure [Left Arm] Blood Pressure Mean 103 81 Blood Pressure Mean [Left Arm] Blood Pressure Position [Left Arm] Pulse Oximetry 94 92 Oxygen Delivery Method Oxygen Flow Rate 08/26/18 02:00 08/26/18 02:02 08/26/18 02:03 Temperature Temperature Source Sepsis Recent Fever Within 48 Hours Sepsis New/Unexplained Change in Mental Status Sepsis Action Taken by Nursing Pulse Rate 47 L 43 L 43 L Pulse Rate [Right Finger] Pulse Rhythm Respiratory Rate 13 12 13 Respiratory Effort / Characteristics Respiratory Depth Respiratory Pattern Blood Pressure 104/52 L Blood Pressure [Left Arm] Blood Pressure Mean 69 Blood Pressure Mean [Left Arm] Blood Pressure Position [Left Arm] Pulse Oximetry 94 95 96 Oxygen Delivery Method Oxygen Flow Rate 08/26/18 02:30 08/26/18 02:31 08/26/18 02:40 Temperature Temperature Source Sepsis Recent Fever Within 48 Hours Sepsis New/Unexplained Change in Mental Status Sepsis Action Taken by Nursing Pulse Rate 44 L 45 L Pulse Rate [Right Finger] Pulse Rhythm Respiratory Rate 16 14 Respiratory Effort / Characteristics Labored Pursed Lip SOB on Exertion Respiratory Depth Normal Respiratory Pattern Regular Blood Pressure 156/96 H Blood Pressure [Left Arm] Blood Pressure Mean 116 Blood Pressure Mean [Left Arm] Blood Pressure Position [Left Arm] Pulse Oximetry 96 96 Oxygen Delivery Method Nasal Cannula Oxygen Flow Rate 5 08/26/18 02:45 08/26/18 04:16 08/26/18 07:16 Temperature 36.7 C Temperature Source Oral Sepsis Recent Fever Within 48 Hours Sepsis New/Unexplained Change in Mental Status Sepsis Action Taken by Nursing Pulse Rate Pulse Rate [Right Finger] 47 L 51 L Pulse Rhythm Respiratory Rate 24 18 18 Respiratory Effort / Characteristics Labored Pursed Lip SOB on Exertion Non-Labored Spontaneous Non-Labored Spontaneous Respiratory Depth Normal Respiratory Pattern Regular Blood Pressure Blood Pressure [Left Arm] 143/87 H Blood Pressure Mean Blood Pressure Mean [Left Arm] 105 Blood Pressure Position [Left Arm] Lying Pulse Oximetry 96 94 97 Oxygen Delivery Method Nasal Cannula Nasal Cannula Nasal Cannula Oxygen Flow Rate 5 4 4 08/26/18 07:44 08/26/18 07:59 08/26/18 11:06 Temperature 36.7 C Temperature Source Oral Sepsis Recent Fever Within 48 Hours Sepsis New/Unexplained Change in Mental Status Sepsis Action Taken by Nursing Pulse Rate Pulse Rate [Right Finger] 58 L 69 Pulse Rhythm Respiratory Rate 16 18 Respiratory Effort / Characteristics Non-Labored Spontaneous SOB on Exertion Non-Labored Spontaneous Respiratory Depth Normal Respiratory Pattern Blood Pressure Blood Pressure [Left Arm] 146/76 H Blood Pressure Mean Blood Pressure Mean [Left Arm] 99 Blood Pressure Position [Left Arm] Pulse Oximetry 92 93 Oxygen Delivery Method Nasal Cannula Nasal Cannula Oxygen Flow Rate 4 4 08/26/18 11:50 08/26/18 15:21 08/26/18 15:28 Temperature 36.5 C 36.6 C Temperature Source Oral Oral Sepsis Recent Fever Within 48 Hours Sepsis New/Unexplained Change in Mental Status Sepsis Action Taken by Nursing Pulse Rate Pulse Rate [Right Finger] 62 54 L 66 Pulse Rhythm Respiratory Rate 16 14 20 Respiratory Effort / Characteristics Non-Labored Spontaneous Respiratory Depth Respiratory Pattern Blood Pressure Blood Pressure [Left Arm] 138/76 119/70 Blood Pressure Mean Blood Pressure Mean [Left Arm] 96 86 Blood Pressure Position [Left Arm] Lying Pulse Oximetry 93 93 93 Oxygen Delivery Method Nasal Cannula Nasal Cannula Oxygen Flow Rate 4 GENERAL: Patient is awake and alert. She is somewhat anxious appearing and appears to be in mild distress. EYES: The conjunctivae are clear. The pupils are round and reactive. EARS, NOSE, MOUTH AND THROAT: The nose is without any evidence of any deformity. Mucous membranes are moist tongue is midline NECK: The neck is nontender and supple. RESPIRATORY: Pursed lip breathing was noted. There were diminished breath sounds noted throughout with rales in both lung rogers. CARDIOVASCULAR: Bradycardic rate with regular rhythm was noted. There was a systolic murmur noted to auscultation. GASTROINTESTINAL: The abdomen is soft. Bowel sounds are present in all quadrants. Abdomen is nontender MUSCULOSKELETAL/EXTREMITIES: There is no evidence of gross deformity full range of motion is noted in the hips and shoulders SKIN: There is no obvious evidence of any rash. Skin is cool and dry. There is pedal edema noted bilaterally. NEUROLOGIC: Patient is awake alert and oriented x3. Course 2212: Past medical records reviewed. The patient was evaluated in room A10, and a complete history and physical examination were performed. 2330: I updated the patient and her family who verbalized agreement and understanding of the treatment plan. 2337: I discussed the patient's case with Dr. Thais Rebolledo who will evaluate the patient for further management. Consultations Consultation #1: Dr. Thais Rebolledo Time: 23:37 Administered Medications Albuterol (Duoneb) 3 ml INH Q4R ROBEL Stop: 09/25/18 03:59 Last Admin: 08/26/18 15:18 Dose: 3 ml Admin: 08/26/18 11:06 Dose: 3 ml Admin: 08/26/18 07:15 Dose: 3 ml Admin: 08/26/18 04:16 Dose: 3 ml Baclofen (Lioresal) 10 mg PO DAILY PRN PRN Reason: muscle spasms Stop: 09/25/18 02:59 Last Admin: 08/26/18 07:31 Dose: 10 mg Ferrous Sulfate (Feosol) 325 mg PO DAILY ROBEL Stop: 09/25/18 08:59 Last Admin: 08/26/18 07:32 Dose: 325 mg Fluticasone Propionate (Flovent Hfa 220mcg) 1 puffs INH BID ROBEL Stop: 09/25/18 08:59 Last Admin: 08/26/18 07:32 Dose: 1 puffs Heparin Sodium (Porcine) (Heparin Sodium (Porcine)) 5,000 units SQ Q12 ROBEL Stop: 09/25/18 08:59 Last Admin: 08/26/18 07:40 Dose: Not Given Sodium Chloride (Nss 1000ml) 1,000 mls @ 125 mls/hr IV .Q8H ROBEL Stop: 09/25/18 02:59 Last Admin: 08/26/18 11:46 Dose: 125 mls/hr Infusion: 08/26/18 11:46 Dose: 125 mls/hr Admin: 08/26/18 04:20 Dose: 125 mls/hr Levothyroxine Sodium (Synthroid) 112 mcg PO DAILYBB ROBEL Stop: 09/25/18 06:29 Last Admin: 08/26/18 06:22 Dose: 112 mcg Metoprolol Tartrate (Lopressor) 50 mg PO BID ROBEL Stop: 09/25/18 08:59 Last Admin: 08/26/18 11:43 Dose: 25 mg Discontinued Medications Albuterol (Duoneb) 3 ml NEB NOW STA Stop: 08/25/18 22:18 Last Admin: 08/25/18 22:51 Dose: 3 ml Calcium Gluconate (Calcium Gluconate 10%) Confirm Administered Dose 1,000 mg IV .STK-MED ONE Stop: 08/25/18 23:31 Last Admin: 08/25/18 23:42 Dose: Not Given Dextrose (Dextrose 50%) 50 ml IV NOW STA Stop: 08/25/18 23:23 Last Admin: 08/25/18 23:41 Dose: 50 ml Calcium Gluconate 1,000 mg/ (Sodium Chloride) 60 mls @ 240 mls/hr IV NOW STA Stop: 08/25/18 23:36 Last Infusion: 08/25/18 23:59 Dose: 0 mls/hr Admin: 08/25/18 23:40 Dose: 240 mls/hr Sodium Chloride (Nss 1000ml) 1,000 mls @ 999 mls/hr IV .Q1H1M ONE Stop: 08/26/18 00:22 Last Infusion: 08/26/18 01:05 Dose: 0 mls/hr Admin: 08/25/18 23:42 Dose: 999 mls/hr Insulin Human Regular (Novolin R U-100 Per Unit) 10 units IV NOW STA Stop: 08/25/18 23:23 Last Admin: 08/25/18 23:41 Dose: 10 units Tizanidine HCl (Zanaflex) 1 mg PO ONE STA Stop: 08/26/18 11:17 Last Admin: 08/26/18 11:44 Dose: Not Given Tizanidine HCl (Zanaflex) 1 mg PO ONE STA Stop: 08/26/18 11:27 Last Admin: 08/26/18 11:42 Dose: 1 mg Medical Decision Making Differential Diagnosis Differential diagnosis: Etiologies such as infections, reactive airway disease, COPD, pneumonia, pleural effusion, pulmonary edema, ARDS, pneumothorax, CHF, cardiac ischemia, cardiac tamponade, dysrhythmia, anemia, pulmonary embolism, musculoskeletal, gastrointestinal process, as well as others were entertained. Medical Records Attestation: I reviewed the patient's medical records. Home Medications Current Medication List: was personally reviewed by me Laboratory Data Attestation: I reviewed the patient's lab results. Result diagrams: 08/26/18 07:40 08/26/18 07:40 Lab Results 08/25/18 08/25/18 08/25/18 Range/Units 22:36 22:36 22:36 WBC 6.16 (4.8-10.8) K/uL RBC 3.54 L (4.2-5.4) M/uL Hgb 11.0 L (12.0-16.0) g/dL Hct 35.3 L (37-47) % MCV 99.7 (80-100) fL MCH 31.1 (25-34) pg MCHC 31.2 L (32-36) g/dL RDW Std Deviation 51.9 H (36.4-46.3) fL RDW Coeff of Jef 14.4 (11.5-14.5) % Plt Count 214 (130-400) K/uL MPV 10.7 H (7.4-10.4) fL Immature Gran % (Auto) 0.2 % Neut % (Auto) 65.8 % Lymph % (Auto) 21.6 % [place] % (Auto) 10.6 % Eos % (Auto) 1.5 % Baso % (Auto) 0.3 % Immature Gran # (Auto) 0.01 (0.00-0.02) K/uL Neut # (Auto) 4.06 (1.4-6.5) K/uL Lymph # (Auto) 1.33 (1.2-3.4) K/uL [place] # (Auto) 0.65 H (0.11-0.59) K/uL Eos # (Auto) 0.09 (0-0.5) K/uL Baso # (Auto) 0.02 (0-0.2) K/uL PT 14.0 H (9.0-12.0) Seconds INR 1.4 H (0.9-1.1) APTT 29.0 (21.0-31.0) Seconds PTT Ratio 1.1 VBG pH (7.36-7.41) VBG pCO2 (38-50) mmHg VBG pO2 mmHg VBG HCO3 mmol/L VBG O2 Saturation % VBG Base Excess mEq/L Barometric Pressure mm/Hg Sodium 135 L (136-145) mmol/L Potassium 6.9 H* (3.5-5.1) mmol/L Chloride 102 (98-107) mmol/L Carbon Dioxide 26 (21-32) mmol/L Anion Gap 7.0 (3-11) BUN 39 H (7-18) mg/dl Creatinine 2.09 H (0.6-1.2) mg/dl Est Cr Clr Drug Dosing 22.2 ml/min Est GFR ( Amer) 25.3 Est GFR (Non-Af Amer) 21.8 BUN/Creatinine Ratio 18.4 (10-20) Glucose 129 H (70-99) mg/dl Calcium 9.2 (8.5-10.1) mg/dl Magnesium 3.5 H (1.8-2.4) mg/dl Total Bilirubin 0.5 (0.2-1) mg/dl AST 30 (15-37) U/L ALT 20 (12-78) U/L Alkaline Phosphatase 51 (45-117) U/L Troponin I 0.031 (0-0.045) ng/ml NT-Pro-B Natriuret Pep 3680 H (0-1800) pg/ml Total Protein 8.2 (6.4-8.2) gm/dl Albumin 3.9 (3.4-5.0) gm/dl Globulin 4.3 H (2.5-4.0) gm/dl Albumin/Globulin Ratio 0.9 (0.9-2) TSH (0.300-4.500) uIu/ml Specimen Hemolysis Urine Color Urine Appearance (Clear) Urine pH (4.5-7.5) Ur Specific [place] (1.000-1.030) Urine Protein (Negative) Urine Glucose (UA) (Negative) Urine Ketones (Negative) Urine Blood (Negative) Urine Nitrite (Negative) Urine Bilirubin (Negative) Urine Urobilinogen (Negative) Ur Leukocyte Esterase (Negative) Urine WBC (Auto) (0-5) /hpf Urine RBC (Auto) (0-4) /hpf U Hyaline Cast (Auto) (0-5) /lpf U Epithel Cells (Auto) (0-5) /lpf Urine Bacteria (Auto) (Negative) 08/25/18 08/26/18 08/26/18 Range/Units 22:42 06:15 07:40 WBC 7.66 (4.8-10.8) K/uL RBC 3.36 L (4.2-5.4) M/uL Hgb 10.4 L (12.0-16.0) g/dL Hct 33.5 L (37-47) % MCV 99.7 (80-100) fL MCH 31.0 (25-34) pg MCHC 31.0 L (32-36) g/dL RDW Std Deviation 52.9 H (36.4-46.3) fL RDW Coeff of Jef 14.6 H (11.5-14.5) % Plt Count 177 (130-400) K/uL MPV 10.3 (7.4-10.4) fL Immature Gran % (Auto) 0.1 % Neut % (Auto) 57.8 % Lymph % (Auto) 28.2 % [place] % (Auto) 12.8 % Eos % (Auto) 0.8 % Baso % (Auto) 0.3 % Immature Gran # (Auto) 0.01 (0.00-0.02) K/uL Neut # (Auto) 4.43 (1.4-6.5) K/uL Lymph # (Auto) 2.16 (1.2-3.4) K/uL [place] # (Auto) 0.98 H (0.11-0.59) K/uL Eos # (Auto) 0.06 (0-0.5) K/uL Baso # (Auto) 0.02 (0-0.2) K/uL PT (9.0-12.0) Seconds INR (0.9-1.1) APTT (21.0-31.0) Seconds PTT Ratio VBG pH 7.33 L (7.36-7.41) VBG pCO2 56 H (38-50) mmHg VBG pO2 34 mmHg VBG HCO3 29 mmol/L VBG O2 Saturation 61.1 % VBG Base Excess 1.7 mEq/L Barometric Pressure 728.3 mm/Hg Sodium (136-145) mmol/L Potassium (3.5-5.1) mmol/L Chloride (98-107) mmol/L Carbon Dioxide (21-32) mmol/L Anion Gap (3-11) BUN (7-18) mg/dl Creatinine (0.6-1.2) mg/dl Est Cr Clr Drug Dosing ml/min Est GFR ( Amer) Est GFR (Non-Af Amer) BUN/Creatinine Ratio (10-20) Glucose (70-99) mg/dl Calcium (8.5-10.1) mg/dl Magnesium (1.8-2.4) mg/dl Total Bilirubin (0.2-1) mg/dl AST (15-37) U/L ALT (12-78) U/L Alkaline Phosphatase (45-117) U/L Troponin I (0-0.045) ng/ml NT-Pro-B Natriuret Pep (0-1800) pg/ml Total Protein (6.4-8.2) gm/dl Albumin (3.4-5.0) gm/dl Globulin (2.5-4.0) gm/dl Albumin/Globulin Ratio (0.9-2) TSH (0.300-4.500) uIu/ml Specimen Hemolysis Urine Color Dark Yellow Urine Appearance Clear (Clear) Urine pH 6.0 (4.5-7.5) Ur Specific [place] 1.020 (1.000-1.030) Urine Protein Negative (Negative) Urine Glucose (UA) Negative (Negative) Urine Ketones Trace H (Negative) Urine Blood Negative (Negative) Urine Nitrite Negative (Negative) Urine Bilirubin Negative (Negative) Urine Urobilinogen Negative (Negative) Ur Leukocyte Esterase Trace H (Negative) Urine WBC (Auto) 1-5 (0-5) /hpf Urine RBC (Auto) 0-4 (0-4) /hpf U Hyaline Cast (Auto) >30 H (0-5) /lpf U Epithel Cells (Auto) >30 H (0-5) /lpf Urine Bacteria (Auto) Negative (Negative) 08/26/18 Range/Units 07:40 WBC (4.8-10.8) K/uL RBC (4.2-5.4) M/uL Hgb (12.0-16.0) g/dL Hct (37-47) % MCV (80-100) fL MCH (25-34) pg MCHC (32-36) g/dL RDW Std Deviation (36.4-46.3) fL RDW Coeff of Jef (11.5-14.5) % Plt Count (130-400) K/uL MPV (7.4-10.4) fL Immature Gran % (Auto) % Neut % (Auto) % Lymph % (Auto) % [place] % (Auto) % Eos % (Auto) % Baso % (Auto) % Immature Gran # (Auto) (0.00-0.02) K/uL Neut # (Auto) (1.4-6.5) K/uL Lymph # (Auto) (1.2-3.4) K/uL [place] # (Auto) (0.11-0.59) K/uL Eos # (Auto) (0-0.5) K/uL Baso # (Auto) (0-0.2) K/uL PT (9.0-12.0) Seconds INR (0.9-1.1) APTT (21.0-31.0) Seconds PTT Ratio VBG pH (7.36-7.41) VBG pCO2 (38-50) mmHg VBG pO2 mmHg VBG HCO3 mmol/L VBG O2 Saturation % VBG Base Excess mEq/L Barometric Pressure mm/Hg Sodium 136 (136-145) mmol/L Potassium 5.5 H D (3.5-5.1) mmol/L Chloride 103 (98-107) mmol/L Carbon Dioxide 28 (21-32) mmol/L Anion Gap 5.0 (3-11) BUN 40 H (7-18) mg/dl Creatinine 2.03 H (0.6-1.2) mg/dl Est Cr Clr Drug Dosing 22.5 ml/min Est GFR ( Amer) 26.2 Est GFR (Non-Af Amer) 22.6 BUN/Creatinine Ratio 19.7 (10-20) Glucose 117 H (70-99) mg/dl Calcium 8.8 (8.5-10.1) mg/dl Magnesium (1.8-2.4) mg/dl Total Bilirubin (0.2-1) mg/dl AST (15-37) U/L ALT (12-78) U/L Alkaline Phosphatase (45-117) U/L Troponin I (0-0.045) ng/ml NT-Pro-B Natriuret Pep (0-1800) pg/ml Total Protein (6.4-8.2) gm/dl Albumin (3.4-5.0) gm/dl Globulin (2.5-4.0) gm/dl Albumin/Globulin Ratio (0.9-2) TSH 1.600 (0.300-4.500) uIu/ml Specimen Hemolysis Urine Color Urine Appearance (Clear) Urine pH (4.5-7.5) Ur Specific [place] (1.000-1.030) Urine Protein (Negative) Urine Glucose (UA) (Negative) Urine Ketones (Negative) Urine Blood (Negative) Urine Nitrite (Negative) Urine Bilirubin (Negative) Urine Urobilinogen (Negative) Ur Leukocyte Esterase (Negative) Urine WBC (Auto) (0-5) /hpf Urine RBC (Auto) (0-4) /hpf U Hyaline Cast (Auto) (0-5) /lpf U Epithel Cells (Auto) (0-5) /lpf Urine Bacteria (Auto) (Negative) Imaging Data Radiologist's Impression: Radiology results as stated below per my review and the radiologist's interpretation: XR chest 1V portable CLINICAL HISTORY: Dyspnea COMPARISON STUDY: Chest radiograph March 29, [address] October 14, 2017. FINDINGS: There are median sternotomy wires. No pneumothorax is noted. No definite pleural effusion is noted. There is no consolidation to suggest pneumonia. Cardiomegaly is unchanged. Mediastinal contours are stable. There is pulmonary vascular congestion with possible mild pulmonary edema. IMPRESSION: Pulmonary vascular congestion with possible mild pulmonary edema. Electronically signed by: Herman Dumont M.D. 08/25/2018 10:54 PM ECG Data Attestation: I personally reviewed and interpreted this ECG as follows: Indication: SOB/dyspnea Rate (beats per minute): 43 Rhythm: sinus bradycardia Findings: no PAC, no PVC, no ST depression, no ST elevation and no ectopy Comparison ECG Date: from (03/29/17) Change: no significant change (decreased rate) Blood Pressure Blood Pressure Findings: Low blood pressure Blood Pressure Disposition: further management by hospitalist CAITIE Bess The patient is an 78-year-old female who presented to the emergency department by ambulance for an evaluation of difficulty breathing. The patient has had difficulty breathing over the last few weeks. She states that she has been monitoring her weight and has been fluctuating her dosage of diuretics at the direction of her primary heart doctor. The patient presents to the emergency department today with worsening symptoms. She was noted to have significant hypoxia on room air prior to arrival but the patient does use oxygen every day. I discussed the patient's laboratory and radiographic studies with her. Her physical exam appear to be consistent with pulmonary edema. The patient was also found to have signs of renal failure. She was treated with IV fluids as well as IV calcium IV dextrose and IV insulin for hyperkalemia. The patient was maintained on supplemental oxygen. She was reevaluated multiple times. The [facility] hospitalist group was contacted about the patient. Impression & Plan Renal failure, Hypoxia, Dyspnea, Hyperkalemia, Bradycardia Critical Care Time I have personally spent greater than 40 minutes of critical care time in the direct management of this patient. This includes bedside care, interpretation of diagnostic studies, and testing, discussion with consultants, patient, and family members, and other required patient management activities. This 40 minutes is in excess of all separately billable procedures. Critical Care Time: Yes Total Critical Care Time: 40 Discharge Plan Visit Data *Final* Discharge Date/Time: 08/26/18 02:36 Chief Complaint: Chest Pain ED Provider: Yogi Almendarez Discharge Problem: Renal failure, Hypoxia, Dyspnea, Hyperkalemia, Bradycardia Patient Disposition: Admitted As Inpatient Discharge Instructions Interventions: ED Discharge Assessment Last Done: 08/26/18 02:36 The scribe's documentation has been prepared under my direction and personally reviewed by me in its entirety. I confirm that the note above accurately reflects all work, treatment, procedures, and medical decision making performed by me.
[2018-08-25 22:54] LABS: Basophils # (auto) 0.02 K/uL (0-0.2); Basophils % (auto) 0.3 %; Eosinophils # (auto) 0.09 K/uL (0-0.5); Eosinophils % (auto) 1.5 %; Hematocrit (blood only) 35.3 % (37-47); Immature Granulocytes # (auto) 0.01 K/uL (0.00-0.02); Immature Granulocytes % (auto) 0.2 %; Lymphocytes # (auto) 1.33 K/uL (1.2-3.4); Lymphocytes % (auto) 21.6 %; Mean Corpuscular Hgb Conc 31.2 g/dL (32-36); Mean Corpuscular Volume 99.7 fL (80-100); Mean Platelet Volume 10.7 fL (7.4-10.4); Monocytes # (auto) 0.65 K/uL (0.11-0.59); Monocytes % (auto) 10.6 %; Neutrophils # (auto) 4.06 K/uL (1.4-6.5); Neutrophils % (auto) 65.8 %; Platelet Count 214 K/uL (130-400); RDW Coefficient of Variation 14.4 % (11.5-14.5); RDW Standard Deviation 51.9 fL (36.4-46.3); Red Blood Count 3.54 M/uL (4.2-5.4); White Blood Count 6.16 K/uL (4.8-10.8)
--- NOTE | 2018-08-25 22:55 | XRay Report ---
XR chest 1V portable CLINICAL HISTORY: Dyspnea COMPARISON STUDY: Chest radiograph March 29, [address] October 14, 2017. FINDINGS: There are median sternotomy wires. No pneumothorax is noted. No definite pleural effusion i s noted. There is no consolidation to suggest pneumonia. Cardiomegaly is unchanged. Mediastinal conto urs are stable. There is pulmonary vascular congestion with possible mild pulmonary edema. IMPRESSION: Pulmonary vascular congestion with possible mild pulmonary edema. Electronically signed by: Herman Dumont M.D. 08/25/2018 10:54 PM
[2018-08-25 22:58] LABS: Base Excess VBG 1.7 mEq/L; Oxygen Saturation VBG 61.1 %; pH VBG 7.33 (7.36-7.41)
[2018-08-25 23:04] LABS: INR 1.4 (0.9-1.1); Partial Thromboplastin Ratio 1.1
[2018-08-25 23:18] LABS: Albumin Globulin Ratio 0.9 (0.9-2); Albumin Level 3.9 gm/dl (3.4-5.0); BUN Creatinine Ratio 18.4 (10-20); Bilirubin,Total 0.5 mg/dl (0.2-1); Calcium 9.2 mg/dl (8.5-10.1); Creatinine Clr Calc Pharmacy 22.2 ml/min; Est GFR (African American) 25.3; Est GFR (Non-African American) 21.8; Globulin 4.3 gm/dl (2.5-4.0); Magnesium 3.5 mg/dl (1.8-2.4); Potassium 6.9 mmol/L (3.5-5.1); Total Protein 8.2 gm/dl (6.4-8.2); Troponin I 0.031 ng/ml (0-0.045)
[2018-08-25] MEDS ORDERED: DEXTROSE 50% 50 ML SYRINGE IV STA (23:22)
[2018-08-25] MEDS ORDERED: SODIUM CHLORIDE 0.9% 1000ML 1,000 ML IV ONE (23:22)
[2018-08-25] MEDS ORDERED: NovoLIN-R INSULIN PER UNIT CHARGE IV STA (23:22)
[2018-08-25] MEDS ORDERED: CALCIUM GLUCONATE 10% 1,000 MG in SODIUM CHLORIDE 0.9% 50 ML IV STA (23:22)
[2018-08-25] MEDS ORDERED: CALCIUM GLUCONATE 10% 10 ML VIAL IV ONE (23:30)
--- NOTE | 2018-08-26 00:49 | History & Physical Report ---
Date of Service August 26, 2018 Assessment & Plan (1) Renal failure: Ms. Wilcox is an 78-year-old female with a history of longstanding Hypertension, SLE, GERD, Dyslipidemia, COPD, Pulmonary Hypertension, Right- Sided CHF, Valvular Heart Disease s/p Bioprosthetic AVR 2010, Severe TR, Hypothyroidism, Type 2 Diabetes Mellitus, Paroxysmal Atrial Fibrillation, and Nonobstructive CAD on Cardiac Catheterization 2010 who presents today with 3 week history of weakness, malaise, shortness of breath. Reports 3 day history of diarrhea and poor po intake. Last loose stool was just prior to admission. Denies prolonged antibiotics, although did have one dose of azithromycin prior to dental cleaning 1 week ago. On review of outpatient records her last cardiology visit was in May 2018. At that time she was told to continue her medications including torsemide 30 mg daily. It is also noted that her dry weight is considered 164 pounds. Today she presents with approximately 187 pounds which is at least 20 pounds above her dry weight. Pt has been taking at times extra doses of her water pills, based on her weights at home including a dose of demedex yesterday. Brother is at bedside and endorses that pt is having visual hallucinations, and her speech is slower than usual. PMH as above PSxH: Cholecystectomy, Hemorrhoidectomy, S/P aortic valve replacement, Tonsillectomy, Total Hysterectomy SH: lives alone, brother (and POA) lives next door. Former smoker. 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 DC planning. May benefit from PT/OT eval. (2) Hyperkalemia: Hold home potassium supplementation, hold home magnesium supplementation until lab results. -calcium gluconate given in ED -AM BMP -fluids (3) Diarrhea: nonspecific constitutional symptoms for several weeks, then 3 day diarrheal illness prior to admission -viral vs bacterial gastroenteritis vs cdiff -c. diff unlikely given only a single dose of azithromycin 1 week ago prior to dental cleaning -- may consider testing -fluids as below (4) Dehydration: in setting of diarrheal illness, HANNAH -received bolus 1L in ED, continue maintenance fluids, follow BMP -HOLD home diuretics until hydration status improves, monitor for fluid overload (5) Bradycardia: (6) Afib: Bradycardic here -continue metoprolol (7) Hypothyroid: Last TSH in outpatient setting 2017 normal -recheck to r/o thyroid issue (8) COPD (chronic obstructive pulmonary disease): Continue home inhalers -complicated by right sided heart failure -O2 as needed -on home O2 3-4L at baseline (9) Aortic valve replaced: Bioprosthetic -stable (10) Right-sided heart failure: Known right sided failure. -BNP elevated 3680 here. -delicate balance between hydration and diuresis complicated by nonspecific viral illness and dehydration -follow. Can consider cardiology consult as they do see her in outpatient -pt does seem to be confused to as to the right regimen of her medications -- would certainly recommend outpatient close follow up. -HOLD home diuretics until hydration status improves, monitor for fluid overload (11) Acute and chronic respiratory failure with hypoxia: modest pulmonary congestion in background of right sided CHF -O2 as needed (12) Hallucination, visual: Pt has insight that she is visually hallucinating -- likely multifactorial given e-lyte imbalances, acute renal failure -pt does have background of depression, is on quetiapine. -follow Present on Admission?: Yes (13) Muscle spasm: Pt's muscle spasms are worse than usual per pt, and pt's brother -continue home meds: Baclofen, tizanidine -check magnesium, recheck potassium, likely contributory Present on Admission?: Yes (14) Chest pain: symptoms not suggestive of acute ischemic etiology, nevertheless will trend troponins given significant comorbidities -monitor on Tele History of Present Illness Primary Care Provider: Angela Barajas MD Ms. Wilcox is an 78-year-old female with a history of longstanding Hypertension , SLE, GERD, Dyslipidemia, COPD, Pulmonary Hypertension, Right-Sided CHF, Valvular Heart Disease s/p Bioprosthetic AVR 2010, Severe TR, Hypothyroidism, Type 2 Diabetes Mellitus, Paroxysmal Atrial Fibrillation, and Nonobstructive CAD on Cardiac Catheterization 2010 who presents today with 3 week history of weakness, malaise, shortness of breath. Reports 3 day history of diarrhea and poor po intake. Last loose stool was just prior to admission. Denies prolonged antibiotics, although did have one dose of azithromycin prior to dental cleaning 1 week ago. On review of outpatient records her last cardiology visit was in May 2018. At that time she was told to continue her medications including torsemide 30 mg daily. It is also noted that her dry weight is considered 164 pounds. Today she presents with approximately 187 pounds which is at least 20 pounds above her dry weight. Pt has been taking at times extra doses of her water pills, based on her weights at home including a dose of demedex yesterday. Brother is at bedside and endorses that pt is having visual hallucinations, and her speech is slower than usual. PMH as above PSxH: Cholecystectomy, Hemorrhoidectomy, S/P aortic valve replacement, Tonsillectomy, Total Hysterectomy SH: lives alone, brother (and POA) lives next door. Former smoker. No EtOH/ drugs Allergies Allergy/AdvReac Type Severity Reaction Status Date / Time Penicillins Allergy Severe HIVES,ANAPH Verified 08/25/18 23:07 YLAXIS shellfish derived Allergy Severe DIFFICULTY Verified 08/25/18 23:07 SWALLOWING & HIVES ezetimibe AdvReac Mild INTOLERANCE Verified 08/25/18 23:07 TO VYTORIN simvastatin AdvReac Mild INTOLERANCE Verified 08/25/18 23:07 clindamycin AdvReac Unknown upset Unverified 08/25/18 23:07 stomach pravastatin AdvReac Unknown muscle Unverified 08/25/18 23:07 aches rosuvastatin AdvReac Unknown muscle Unverified 08/25/18 23:07 aches Home Medications Home Medications Medication Instructions Recorded Confirmed Type acetaminophen [Tylenol] 650 mg PO Q6H PRN 08/25/18 08/25/18 History albuterol sulfate [Ventolin HFA] 2 puff INHALATION Q4H PRN 08/25/18 08/25/18 History azithromycin 500 mg PO DIRECTED 08/25/18 08/25/18 History baclofen 10 - 20 mg PO DAILY PRN 08/25/18 08/25/18 History ferrous sulfate 325 mg PO DAILY 08/25/18 08/25/18 History fluticasone [Flovent HFA] 1 puff INHALATION BID 08/25/18 08/25/18 History ipratropium-albuterol 3 ml INHALATION Q4H 08/25/18 08/25/18 History levothyroxine 112 mcg PO DAILY 08/25/18 08/25/18 History loratadine 10 mg PO DAILY PRN 08/25/18 08/25/18 History magnesium 500 mg PO BID 08/25/18 08/25/18 History metoprolol tartrate 50 mg PO BID 08/25/18 08/25/18 History naproxen 500 mg PO Q12H PRN 08/25/18 08/25/18 History ondansetron HCl [Zofran] 4 mg PO Q6H PRN 08/25/18 08/25/18 History potassium chloride 20 meq PO BID 08/25/18 08/25/18 History quetiapine 12.5 mg PO Q2D 08/25/18 08/25/18 History torsemide 10 mg PO DAILY 08/25/18 08/25/18 History Past Med/Surg History Medical History COPD (chronic obstructive pulmonary disease) (Chronic) Surgical History Aortic valve replaced (Resolved) Family History Other No pertinent family history Social History Current Living Situation: Alone Other Information That Helps Us Care for You: No Feels Safe at Home: Yes Safety Concerns: Feels Safe At This Time Smoking Status: Former smoker Tobacco Type: cigarettes Do You Dip or Chew Tobacco: No Second Hand Exposure: No Tobacco Cessation Education Requested by Patient: No Hx Alcohol Use: No Hx Substance Use: No Beliefs That Will Affect Care: None Preferred Language: Somali Communication Ability: Effective Sports Betting Manager Required: No Review of Systems All systems reviewed & are unremarkable except as noted in HPI & below Physical Exam 2 Vital Signs (Past 24 Hours): Last Vital Signs Temp 36.5 C 08/25/18 22:16 Pulse 38 L 08/26/18 00:01 Resp 13 08/26/18 00:01 BP 144/63 H 08/26/18 00:01 Pulse Ox 95 08/25/18 23:30 Physical Exam: Vitals noted as above and within normal limits. GENERAL: Alert to person place and time, tired-appearing, in no distress. HENT: Normocephalic, atraumatic. Nasal cannula in place. Mucous membranes dry. EYES: Normal conjunctiva. Sclera non-icteric. EOMI. +glasses. NECK: Supple. Full range of motion. JVD RESPIRATORY: Clear to auscultation. CARDIAC: Regular rate, normal rhythm, rate in 40s on exam. Extremities warm and well perfused. Pulses equal. ABDOMEN: Soft, non-distended. No tenderness to palpation. No rebound or guarding. No masses. Bowel sounds are normal. LOWER EXTREMITIES: Calves are equal size bilaterally and non-tender. No edema. No discoloration. +varicosities NEURO: No gross focal motor deficits noted. Speech is slow. Occasional spontaneous spasms, primarily in left upper extremity. SKIN: Rash not present. No jaundice noted. PSYCH: endorses visual hallucinations. Cooperative. Appropriate mood/affect. Results & Data Laboratory Results 08/25/18 08/25/18 08/25/18 Range/Units 22:42 22:36 22:36 WBC (4.8-10.8) K/uL RBC (4.2-5.4) M/uL Hgb (12.0-16.0) g/dL Hct (37-47) % MCV (80-100) fL MCH (25-34) pg MCHC (32-36) g/dL RDW Std Deviation (36.4-46.3) fL RDW Coeff of Jef (11.5-14.5) % Plt Count (130-400) K/uL MPV (7.4-10.4) fL Immature Gran % (Auto) % Neut % (Auto) % Lymph % (Auto) % Hughes % (Auto) % Eos % (Auto) % Baso % (Auto) % Immature Gran # (Auto) (0.00-0.02) K/uL Neut # (Auto) (1.4-6.5) K/uL Lymph # (Auto) (1.2-3.4) K/uL Hughes # (Auto) (0.11-0.59) K/uL Eos # (Auto) (0-0.5) K/uL Baso # (Auto) (0-0.2) K/uL PT 14.0 H (9.0-12.0) Seconds INR 1.4 H (0.9-1.1) APTT 29.0 (21.0-31.0) Seconds PTT Ratio 1.1 VBG pH 7.33 L (7.36-7.41) VBG pCO2 56 H (38-50) mmHg VBG pO2 34 mmHg VBG HCO3 29 mmol/L VBG O2 Saturation 61.1 % VBG Base Excess 1.7 mEq/L Barometric Pressure 728.3 mm/Hg Sodium 135 L (136-145) mmol/L Potassium 6.9 H* (3.5-5.1) mmol/L Chloride 102 (98-107) mmol/L Carbon Dioxide 26 (21-32) mmol/L Anion Gap 7.0 (3-11) BUN 39 H (7-18) mg/dl Creatinine 2.09 H (0.6-1.2) mg/dl Est Cr Clr Drug Dosing 22.2 ml/min Est GFR ( Amer) 25.3 Est GFR (Non-Af Amer) 21.8 BUN/Creatinine Ratio 18.4 (10-20) Glucose 129 H (70-99) mg/dl Calcium 9.2 (8.5-10.1) mg/dl Magnesium 3.5 H (1.8-2.4) mg/dl Total Bilirubin 0.5 (0.2-1) mg/dl AST 30 (15-37) U/L ALT 20 (12-78) U/L Alkaline Phosphatase 51 (45-117) U/L Troponin I 0.031 (0-0.045) ng/ml NT-Pro-B Natriuret Pep 3680 H (0-1800) pg/ml Total Protein 8.2 (6.4-8.2) gm/dl Albumin 3.9 (3.4-5.0) gm/dl Globulin 4.3 H (2.5-4.0) gm/dl Albumin/Globulin Ratio 0.9 (0.9-2) Specimen Hemolysis 08/25/18 Range/Units 22:36 WBC 6.16 (4.8-10.8) K/uL RBC 3.54 L (4.2-5.4) M/uL Hgb 11.0 L (12.0-16.0) g/dL Hct 35.3 L (37-47) % MCV 99.7 (80-100) fL MCH 31.1 (25-34) pg MCHC 31.2 L (32-36) g/dL RDW Std Deviation 51.9 H (36.4-46.3) fL RDW Coeff of Jef 14.4 (11.5-14.5) % Plt Count 214 (130-400) K/uL MPV 10.7 H (7.4-10.4) fL Immature Gran % (Auto) 0.2 % Neut % (Auto) 65.8 % Lymph % (Auto) 21.6 % Hughes % (Auto) 10.6 % Eos % (Auto) 1.5 % Baso % (Auto) 0.3 % Immature Gran # (Auto) 0.01 (0.00-0.02) K/uL Neut # (Auto) 4.06 (1.4-6.5) K/uL Lymph # (Auto) 1.33 (1.2-3.4) K/uL Hughes # (Auto) 0.65 H (0.11-0.59) K/uL Eos # (Auto) 0.09 (0-0.5) K/uL Baso # (Auto) 0.02 (0-0.2) K/uL PT (9.0-12.0) Seconds INR (0.9-1.1) APTT (21.0-31.0) Seconds PTT Ratio VBG pH (7.36-7.41) VBG pCO2 (38-50) mmHg VBG pO2 mmHg VBG HCO3 mmol/L VBG O2 Saturation % VBG Base Excess mEq/L Barometric Pressure mm/Hg Sodium (136-145) mmol/L Potassium (3.5-5.1) mmol/L Chloride (98-107) mmol/L Carbon Dioxide (21-32) mmol/L Anion Gap (3-11) BUN (7-18) mg/dl Creatinine (0.6-1.2) mg/dl Est Cr Clr Drug Dosing ml/min Est GFR ( Amer) Est GFR (Non-Af Amer) BUN/Creatinine Ratio (10-20) Glucose (70-99) mg/dl Calcium (8.5-10.1) mg/dl Magnesium (1.8-2.4) mg/dl Total Bilirubin (0.2-1) mg/dl AST (15-37) U/L ALT (12-78) U/L Alkaline Phosphatase (45-117) U/L Troponin I (0-0.045) ng/ml NT-Pro-B Natriuret Pep (0-1800) pg/ml Total Protein (6.4-8.2) gm/dl Albumin (3.4-5.0) gm/dl Globulin (2.5-4.0) gm/dl Albumin/Globulin Ratio (0.9-2) Specimen Hemolysis Diagnostic Findings CXR shows mild pulmonary edema, pulmonary vascular congestion. Medications Administered duoneb, dextrose with insulin, calcium gluconate, 1L bolus NSS, maintenance fluids Code Status & VTE Plan Code Status DNR VTE Prophylaxis Plan VTE Prophylaxis will be ordered: Yes Supervising Physician Co-Signing Physician Notes Pt seen/examined in conjunction with the resident MD Kai Ellis. Orders and plan of care formulated with resident. 78 y/o F Hx HTN, SLE, COPD, AVR, DM II, AF, R CHF, GERD. The pt presents with weakness and SOB x 3 weeks, in addition to diarrhea and a poor appetite over the past 2 days. Her brother provided that she may de have been exhibiting visual hallucinations for a few days as well. Initial labs were notable for ARF and a high K. OE AAO x 2 S1,2 (+) M CTA - poor air movement NT, ND No CCE No deficits P: - ARF - IVF provided - treated for high K in ER, monitor on tele - repaet BMP - likely due to conitnue use of meds in context of possible viral enteritis. - CHF as her diuretics are held, volume status will bear monitoring - COPD and c/o SOB - we will cont scheduled nebs, 02 as needed. Holding off on steroids as no wheezing/hypoxia present - Cont synthroid - TSh pending - SS for DM Resident Activity Tracking Resident Involvement: Resident Care Provided Care Provided: Adult [facility] _ (1) Renal failure Acute renal failure type: unspecified Renal failure chronicity: acute Qualified Code(s): N17.9 - Acute kidney failure, unspecified
[2018-08-26] MEDS ORDERED: POLYETHYLENE (MIRALAX) 17 GM PACK PO PRN (03:00)
[2018-08-26] MEDS ORDERED: MAGNESIUM HYDROXIDE SUSP 30 ML UDC PO PRN (03:00)
[2018-08-26] MEDS ORDERED: LORATADINE 10 MG TAB PO PRN (03:00)
[2018-08-26] MEDS ORDERED: ALUMINUM/MAGNESIUM SUSP 30 ML UDC PO PRN (03:00)
[2018-08-26] MEDS: ALBUT/IPRATROP 3MG/0.5MG NEB 3 ML VIAL INH SCH ×6 (04:16→22:52)
[2018-08-26] MEDS: SODIUM CHLORIDE 0.9% 1000ML 1,000 ML IV SCH ×3 (04:20→19:40)
[2018-08-26] MEDS: LEVOTHYROXINE SODIUM 112 MCG TABLET PO SCH (06:22)
[2018-08-26 06:39] LABS: Appearance Urine Clear (Clear); Bacteria Urine Automated Negative (Negative); Bilirubin Urine Negative (Negative); Color Urine Dark Yellow; Epithelial Cell Urine Auto >30 /lpf (0-5); Glucose Urine UA Negative (Negative); Ketones Urine Trace (Negative); Leukocyte Esterase Urine Trace (Negative); Nitrite Urine Negative (Negative); Protein Urine Negative (Negative); Urobilinogen Urine Negative (Negative)
[2018-08-26 06:47] LABS: Cast Urine Automated >30 /lpf (0-5)
--- NOTE | 2018-08-26 07:24 | XRay Report ---
XR chest 1V portable CLINICAL HISTORY: Atypical chest pain COMPARISON STUDY: 08/25/2018 FINDINGS: The heart remains enlarged. There are postsurgical changes of midline sternotomy. Mild pulm onary vascular congestion persists. There is no lobar consolidation. There are no significant pleural effusions.[ IMPRESSION: Cardiomegaly and mild pulmonary vascular congestion. No evidence of lobar consolidation Electronically signed by: Eder Johnson M.D. 08/26/2018 7:22 AM
[2018-08-26] MEDS: BACLOFEN 10 MG TAB PO PRN (07:31)
[2018-08-26] MEDS: FLUTICASONE HFA 220 MCG INHALER INH SCH ×2 (07:32→19:43)
[2018-08-26] MEDS: FERROUS SULFATE 325 MG TAB PO SCH (07:32)
[2018-08-26] MEDS: HEPARIN SOD 5,000 UNIT/0.5 ML VIAL SQ SCH ×2 (07:40→19:42)
[2018-08-26 07:51] LABS: Basophils # (auto) 0.02 K/uL (0-0.2); Basophils % (auto) 0.3 %; Eosinophils # (auto) 0.06 K/uL (0-0.5); Eosinophils % (auto) 0.8 %; Hematocrit (blood only) 33.5 % (37-47); Hemoglobin 10.4 g/dL (12.0-16.0); Immature Granulocytes # (auto) 0.01 K/uL (0.00-0.02); Immature Granulocytes % (auto) 0.1 %; Lymphocytes # (auto) 2.16 K/uL (1.2-3.4); Lymphocytes % (auto) 28.2 %; Mean Corpuscular Volume 99.7 fL (80-100); Mean Platelet Volume 10.3 fL (7.4-10.4); Monocytes # (auto) 0.98 K/uL (0.11-0.59); Monocytes % (auto) 12.8 %; Neutrophils # (auto) 4.43 K/uL (1.4-6.5); Neutrophils % (auto) 57.8 %; Platelet Count 177 K/uL (130-400); RDW Coefficient of Variation 14.6 % (11.5-14.5); RDW Standard Deviation 52.9 fL (36.4-46.3); Red Blood Count 3.36 M/uL (4.2-5.4); White Blood Count 7.66 K/uL (4.8-10.8)
[2018-08-26 08:25] LABS: BUN Creatinine Ratio 19.7 (10-20); Calcium 8.8 mg/dl (8.5-10.1); Creatinine Clr Calc Pharmacy 22.5 ml/min; Est GFR (African American) 26.2; Est GFR (Non-African American) 22.6; Potassium 5.5 mmol/L (3.5-5.1)
[2018-08-26] MEDS ORDERED: TIZANIDINE 1 MG TABLET PO STA (11:16)
[2018-08-26] MEDS ORDERED: TIZANIDINE HCL 4 MG TABLET PO STA (11:26)
[2018-08-26] MEDS: METOPROLOL TARTRATE 50 MG TAB PO SCH ×2 (11:43→19:44)
--- NOTE | 2018-08-26 15:07 | Cardiology Consultation ---
Date of Consultation August 26, 2018 Assessment & Plan (1) Acute and chronic respiratory failure with hypoxia: Patient has a history primary pulmonary disease and oxygen dependent COPD which she did have evidence pulmonary vascular congestion on her chest x-ray and mildly elevated N terminal proBNP, her overall presentation is more consistent with dehydration. This was suggest that some of her hypoxia and breathing difficulty is related to a primary lung disease and not exclusively pulmonary edema. This point she is receiving volume resuscitation. It would be important follow her symptoms, exam and other objective findings to determine if she requires any diuresis. (2) Bradycardia: She has a long history of sinus bradycardia. Do not believe this is playing a role in her current condition. She can be followed over time for more typical symptoms associated with sinus bradycardia. (3) Afib: No clinical recurrence. Currently in sinus rhythm. Patient did have difficulty with anticoagulation in the past is not currently on systemic anticoagulation. (4) Right-sided heart failure: While her weight is up, she does not feel as if she has significant edema. Her abdomen is slightly distended but she has minimal lower extremity edema. Currently her diuretics are being withheld as she is suspected to have intravascular depletion related to diuretic use and diarrhea. History of Present Illness Reason for Consultation: Dyspnea Requesting Physician: Marion Attending Physician: Rashid Schultz History of Present Illness Patient is an 78-year-old woman with a history of severe tricuspid regurgitation , mild right ventricular systolic dysfunction, an element of pulmonary hypertension and prior aortic valve replacement. She also has a history of paroxysmal atrial fibrillation. In this setting, the patient reported several days of progressive shortness of breath and hypoxia. She measures her pulse oxygen level at home and has noticed readings as low as 77 percent. Generally speaking she runs closer to 90 percent but often in the high 80 percentile. During this time she also noted worsening fatigue and significant diarrhea. Patient generally manages her volume status with a daily dose of diuretic and extra doses of diuretic and metolazone as needed for weight gain. Recently she did take extra doses of metolazone and affected a significant weight loss. She subsequently stopped her diuretic when she began to have significant diarrhea. She describes several explosive bowel movements daily. She had some dizziness associated with the symptoms as well. Based on the progression of her symptoms she presented to [facility] for evaluation. She is felt to be mildly dehydrated and begun on intravenous fluids. The patient lives alone. She is able to perform mild activity with some dyspnea. She does use supplemental oxygen all of the time and recently reported an increase in her oxygen use due to her perceived hypoxia. She has 2 pillow orthopnea which is stable. She does not report paroxysmal nocturnal dyspnea. In the past she has had some difficulty with breathing associated with swelling and edema. She does not report these findings currently. She has not been aware of any palpitations. She is not reporting symptoms of chest discomfort. Patient states she feels slightly better than she did at the time of admission. However, she continues to be very short of breath and fatigue. Only 1 episode of diarrhea today. Allergies Allergy/AdvReac Type Severity Reaction Status Date / Time Penicillins Allergy Severe HIVES,ANAPH Verified 08/25/18 23:07 YLAXIS shellfish derived Allergy Severe DIFFICULTY Verified 08/25/18 23:07 SWALLOWING & HIVES ezetimibe AdvReac Mild INTOLERANCE Verified 08/25/18 23:07 TO VYTORIN simvastatin AdvReac Mild INTOLERANCE Verified 08/25/18 23:07 clindamycin AdvReac Unknown upset Unverified 08/25/18 23:07 stomach pravastatin AdvReac Unknown muscle Unverified 08/25/18 23:07 aches rosuvastatin AdvReac Unknown muscle Unverified 08/25/18 23:07 aches Home Medications Home Medications Medication Instructions Recorded Confirmed Type acetaminophen [Tylenol] 650 mg PO Q6H PRN 08/25/18 08/25/18 History albuterol sulfate [Ventolin HFA] 2 puff INHALATION Q4H PRN 08/25/18 08/25/18 History azithromycin 500 mg PO DIRECTED 08/25/18 08/25/18 History baclofen 10 - 20 mg PO DAILY PRN 08/25/18 08/25/18 History ferrous sulfate 325 mg PO DAILY 08/25/18 08/25/18 History fluticasone [Flovent HFA] 1 puff INHALATION BID 08/25/18 08/25/18 History ipratropium-albuterol 3 ml INHALATION Q4H 08/25/18 08/25/18 History levothyroxine 112 mcg PO DAILY 08/25/18 08/25/18 History loratadine 10 mg PO DAILY PRN 08/25/18 08/25/18 History magnesium 500 mg PO BID 08/25/18 08/25/18 History metoprolol tartrate 50 mg PO BID 08/25/18 08/25/18 History naproxen 500 mg PO Q12H PRN 08/25/18 08/25/18 History ondansetron HCl [Zofran] 4 mg PO Q6H PRN 08/25/18 08/25/18 History potassium chloride 20 meq PO BID 08/25/18 08/25/18 History quetiapine 12.5 mg PO Q2D 08/25/18 08/25/18 History torsemide 10 mg PO DAILY 08/25/18 08/25/18 History Patient History Medical History COPD (chronic obstructive pulmonary disease) (Chronic) Surgical History Aortic valve replaced (Resolved) Family History Other No pertinent family history Social History Current Living Situation: Alone Other Information That Helps Us Care for You: No Feels Safe at Home: Yes Safety Concerns: Feels Safe At This Time Smoking Status: Former smoker Tobacco Type: cigarettes Do You Dip or Chew Tobacco: No Second Hand Exposure: No Tobacco Cessation Education Requested by Patient: No Hx Alcohol Use: No Hx Substance Use: No Beliefs That Will Affect Care: None Communication Ability: Effective Review of Systems Complete. Pertinent positives noted in history of present illness. The patient did not report recent fevers or chills. She has complained of spasms or tremors. This occurs in all 4 extremities. It is chronic in nature but much worse recently. Physical Exam 2 Vital Signs (Past 24 Hours): Last Vital Signs Temp 36.5 C 08/26/18 11:50 Pulse 62 08/26/18 11:50 Resp 16 08/26/18 11:50 BP 138/76 08/26/18 11:50 Pulse Ox 93 08/26/18 11:50 Physical Exam: She is alert and oriented x3. Mood affect appear normal. She answered all questions appropriately. HEENT: Sclerae are anicteric. Pupils are equal and reactive to light and accommodation. Extraocular movements were intact. Neuro: Cranial nerves intact Neck: Scar on the left side of the neck. No thyromegaly Lungs: Lungs are clear. Normal air movement. Only occasional crackle at the base bilaterally. No expiratory wheezing. Cardiac: The rhythm was regular. S1 and S2 were normal. Soft holosystolic murmur. The PMI was not markedly displaced on palpation. Abdomen: The abdomen was soft and nontender. Extremities: Patient has bilateral radial pulses that are equal in intensity. There is no evidence cyanosis. Mild bilateral lower extremity edema Skin: There are no rashes noted on examination today. Results & Data Laboratory Results Abnormal Lab Results 08/25/18 08/25/18 08/25/18 22:36 22:36 22:36 WBC 6.16 RBC 3.54 L Hgb 11.0 L Hct 35.3 L MCV 99.7 MCH 31.1 MCHC 31.2 L RDW Std Deviation 51.9 H RDW Coeff of Jef 14.4 Plt Count 214 MPV 10.7 H Immature Gran % (Auto) 0.2 Neut % (Auto) 65.8 Lymph % (Auto) 21.6 [place] % (Auto) 10.6 Eos % (Auto) 1.5 Baso % (Auto) 0.3 Immature Gran # (Auto) 0.01 Neut # (Auto) 4.06 Lymph # (Auto) 1.33 [place] # (Auto) 0.65 H Eos # (Auto) 0.09 Baso # (Auto) 0.02 PT 14.0 H INR 1.4 H APTT 29.0 PTT Ratio 1.1 VBG pH VBG pCO2 VBG pO2 VBG HCO3 VBG O2 Saturation VBG Base Excess Barometric Pressure Sodium 135 L Potassium 6.9 H* Chloride 102 Carbon Dioxide 26 Anion Gap 7.0 BUN 39 H Creatinine 2.09 H Est Cr Clr Drug Dosing 22.2 Est GFR ( Amer) 25.3 Est GFR (Non-Af Amer) 21.8 BUN/Creatinine Ratio 18.4 Glucose 129 H Calcium 9.2 Magnesium 3.5 H Total Bilirubin 0.5 AST 30 ALT 20 Alkaline Phosphatase 51 Troponin I 0.031 NT-Pro-B Natriuret Pep 3680 H Total Protein 8.2 Albumin 3.9 Globulin 4.3 H Albumin/Globulin Ratio 0.9 TSH Specimen Hemolysis Urine Color Urine Appearance Urine pH Ur Specific [place] Urine Protein Urine Glucose (UA) Urine Ketones Urine Blood Urine Nitrite Urine Bilirubin Urine Urobilinogen Ur Leukocyte Esterase Urine WBC (Auto) Urine RBC (Auto) U Hyaline Cast (Auto) U Epithel Cells (Auto) Urine Bacteria (Auto) 08/25/18 08/26/18 08/26/18 22:42 06:15 07:40 WBC 7.66 RBC 3.36 L Hgb 10.4 L Hct 33.5 L MCV 99.7 MCH 31.0 MCHC 31.0 L RDW Std Deviation 52.9 H RDW Coeff of Jef 14.6 H Plt Count 177 MPV 10.3 Immature Gran % (Auto) 0.1 Neut % (Auto) 57.8 Lymph % (Auto) 28.2 [place] % (Auto) 12.8 Eos % (Auto) 0.8 Baso % (Auto) 0.3 Immature Gran # (Auto) 0.01 Neut # (Auto) 4.43 Lymph # (Auto) 2.16 [place] # (Auto) 0.98 H Eos # (Auto) 0.06 Baso # (Auto) 0.02 PT INR APTT PTT Ratio VBG pH 7.33 L VBG pCO2 56 H VBG pO2 34 VBG HCO3 29 VBG O2 Saturation 61.1 VBG Base Excess 1.7 Barometric Pressure 728.3 Sodium Potassium Chloride Carbon Dioxide Anion Gap BUN Creatinine Est Cr Clr Drug Dosing Est GFR ( Amer) Est GFR (Non-Af Amer) BUN/Creatinine Ratio Glucose Calcium Magnesium Total Bilirubin AST ALT Alkaline Phosphatase Troponin I NT-Pro-B Natriuret Pep Total Protein Albumin Globulin Albumin/Globulin Ratio TSH Specimen Hemolysis Urine Color Dark Yellow Urine Appearance Clear Urine pH 6.0 Ur Specific [place] 1.020 Urine Protein Negative Urine Glucose (UA) Negative Urine Ketones Trace H Urine Blood Negative Urine Nitrite Negative Urine Bilirubin Negative Urine Urobilinogen Negative Ur Leukocyte Esterase Trace H Urine WBC (Auto) 1-5 Urine RBC (Auto) 0-4 U Hyaline Cast (Auto) >30 H U Epithel Cells (Auto) >30 H Urine Bacteria (Auto) Negative 08/26/18 07:40 WBC RBC Hgb Hct MCV MCH MCHC RDW Std Deviation RDW Coeff of Jef Plt Count MPV Immature Gran % (Auto) Neut % (Auto) Lymph % (Auto) [place] % (Auto) Eos % (Auto) Baso % (Auto) Immature Gran # (Auto) Neut # (Auto) Lymph # (Auto) [place] # (Auto) Eos # (Auto) Baso # (Auto) PT INR APTT PTT Ratio VBG pH VBG pCO2 VBG pO2 VBG HCO3 VBG O2 Saturation VBG Base Excess Barometric Pressure Sodium 136 Potassium 5.5 H D Chloride 103 Carbon Dioxide 28 Anion Gap 5.0 BUN 40 H Creatinine 2.03 H Est Cr Clr Drug Dosing 22.5 Est GFR ( Amer) 26.2 Est GFR (Non-Af Amer) 22.6 BUN/Creatinine Ratio 19.7 Glucose 117 H Calcium 8.8 Magnesium Total Bilirubin AST ALT Alkaline Phosphatase Troponin I NT-Pro-B Natriuret Pep Total Protein Albumin Globulin Albumin/Globulin Ratio TSH 1.600 Specimen Hemolysis Urine Color Urine Appearance Urine pH Ur Specific [place] Urine Protein Urine Glucose (UA) Urine Ketones Urine Blood Urine Nitrite Urine Bilirubin Urine Urobilinogen Ur Leukocyte Esterase Urine WBC (Auto) Urine RBC (Auto) U Hyaline Cast (Auto) U Epithel Cells (Auto) Urine Bacteria (Auto) Diagnostic Findings Chest x-ray the time of admission revealed evidence of pulmonary vascular congestion but no manjinder edema. Echocardiogram performed 03/17/2017 revealed preserved LV systolic function with mild RV dilation and mild reduction in RV function. Severe tricuspid regurgitation. Mildly elevated pulmonary systolic pressures. ECG Additional Comments: EKG the time admission revealed sinus bradycardia
[2018-08-26] MEDS ORDERED: methylPREDNISolone 40 MG in SYRINGE 0 ML IV SCH (18:00)
[2018-08-26] MEDS ORDERED: TIZANIDINE HCL 4 MG TABLET PO ONE (18:15)
[2018-08-26] MEDS: QUETIAPINE FUMARATE 25 MG TABLET PO SCH (19:43)
[2018-08-26] MEDS ORDERED: TIZANIDINE HCL 4 MG TABLET PO SCH (21:00)
[2018-08-27] MEDS: ALBUT/IPRATROP 3MG/0.5MG NEB 3 ML VIAL INH SCH ×2 (02:54→07:21)
[2018-08-27] MEDS: BACLOFEN 10 MG TAB PO PRN (03:03)
[2018-08-27] MEDS: LEVOTHYROXINE SODIUM 112 MCG TABLET PO SCH (06:03)
[2018-08-27 06:59] LABS: Eosinophils # (auto) 0.01 K/uL (0-0.5); Eosinophils % (auto) 0.2 %; Hematocrit (blood only) 35.7 % (37-47); Hemoglobin 11.4 g/dL (12.0-16.0); Immature Granulocytes # (auto) 0.03 K/uL (0.00-0.02); Immature Granulocytes % (auto) 0.5 %; Lymphocytes # (auto) 0.63 K/uL (1.2-3.4); Mean Corpuscular Hgb Conc 31.9 g/dL (32-36); Mean Corpuscular Volume 98.3 fL (80-100); Mean Platelet Volume 10.2 fL (7.4-10.4); Monocytes # (auto) 0.18 K/uL (0.11-0.59); Monocytes % (auto) 3.1 %; Neutrophils # (auto) 4.87 K/uL (1.4-6.5); Neutrophils % (auto) 85.2 %; Platelet Count 224 K/uL (130-400); RDW Coefficient of Variation 14.8 % (11.5-14.5); RDW Standard Deviation 52.2 fL (36.4-46.3); Red Blood Count 3.63 M/uL (4.2-5.4); White Blood Count 5.72 K/uL (4.8-10.8)
[2018-08-27 07:43] LABS: BUN Creatinine Ratio 20.8 (10-20); Calcium 8.5 mg/dl (8.5-10.1); Creatinine Clr Calc Pharmacy 41.5 ml/min; Est GFR (African American) 53.7; Est GFR (Non-African American) 46.4; Potassium 4.9 mmol/L (3.5-5.1)
[2018-08-27] MEDS: FLUTICASONE HFA 220 MCG INHALER INH SCH ×2 (08:50→20:46)
[2018-08-27] MEDS: FERROUS SULFATE 325 MG TAB PO SCH (08:50)
[2018-08-27] MEDS: METOPROLOL TARTRATE 50 MG TAB PO SCH ×2 (08:50→20:46)
[2018-08-27] MEDS: HEPARIN SOD 5,000 UNIT/0.5 ML VIAL SQ SCH ×2 (08:51→20:45)
[2018-08-27] MEDS: ACETAMINOPHEN 325 MG TAB PO PRN ×2 (08:58→20:47)
[2018-08-27] MEDS ORDERED: TIZANIDINE HCL 4 MG TABLET PO ONE (09:12)
[2018-08-27] MEDS: SODIUM CHLORIDE 0.9% 1000ML 1,000 ML IV SCH (10:35)
[2018-08-27] MEDS: LOPERAMIDE HCL 2 MG CAP PO PRN (10:43)
[2018-08-27] MEDS: TORSEMIDE 20 MG TAB PO SCH (13:43)
--- NOTE | 2018-08-27 15:14 | Cardiology Progress Note ---
Date of Service August 27, 2018 Assessment & Plan (1) Acute and chronic respiratory failure with hypoxia: Suspect that this is mainly pulmonary, however, the patient may developed pulmonary edema with aggressive hydration. Would use fluid resuscitation with care. (2) Bradycardia: Not likely symptomatic at this time. Has been a longstanding finding. (3) Afib: She remains in normal sinus rhythm at this time. Failed a trial of outpatient anticoagulation therapy. (4) Right-sided heart failure: Diuretics currently on hold. Subjective The patient is resting comfortably in bed complaining of fatigue. No dyspnea nor chest discomfort. Physical Exam 2 Vital Signs (Past 24 Hours): Last Vital Signs Temp 36.8 C 08/27/18 15:04 Pulse 52 L 08/27/18 15:04 Resp 20 08/27/18 15:04 BP 135/79 08/27/18 15:04 Pulse Ox 92 08/27/18 15:04 Physical Exam: In general is well-developed well-nourished white female lying supine in bed. HEENT exam is negative. Neck is supple with full carotid upstrokes. No obvious bruits. Jugular is pressure is flat at 90 degrees. No thyromegaly. Cardiovascular exam reveals a regular rhythm with distant heart sounds. Lungs are clear without rales, rhonchi or wheezes. Abdomen is soft without bruits. Extremities reveal intact radial pulses bilaterally. Trace pretibial edema is noted. Results & Data Laboratory Results Laboratory Results - last 24 hr 08/27/18 08/27/18 06:33 06:33 WBC 5.72 RBC 3.63 L Hgb 11.4 L Hct 35.7 L MCV 98.3 MCH 31.4 MCHC 31.9 L RDW Std Deviation 52.2 H RDW Coeff of Jef 14.8 H Plt Count 224 MPV 10.2 Immature Gran % (Auto) 0.5 Neut % (Auto) 85.2 Lymph % (Auto) 11.0 [place] % (Auto) 3.1 Eos % (Auto) 0.2 Baso % (Auto) 0.0 Immature Gran # (Auto) 0.03 H Neut # (Auto) 4.87 Lymph # (Auto) 0.63 L [place] # (Auto) 0.18 Eos # (Auto) 0.01 Baso # (Auto) 0.00 Sodium 137 Potassium 4.9 Chloride 107 Carbon Dioxide 23 Anion Gap 7.0 BUN 23 H Creatinine 1.12 D Est Cr Clr Drug Dosing 41.5 Est GFR ( Amer) 53.7 Est GFR (Non-Af Amer) 46.4 BUN/Creatinine Ratio 20.8 H Glucose 146 H Calcium 8.5 Diagnostic Findings leaf tinner is benign.
[2018-08-27] MEDS: TIZANIDINE HCL 4 MG TABLET PO SCH (20:47)
[2018-08-28] MEDS: ACETAMINOPHEN 325 MG TAB PO PRN ×3 (05:28→23:11)
[2018-08-28] MEDS: LEVOTHYROXINE SODIUM 112 MCG TABLET PO SCH (05:29)
[2018-08-28] MEDS: ONDANSETRON 4 MG TAB PO PRN (07:29)
[2018-08-28 07:36] LABS: BUN Creatinine Ratio 24.9 (10-20); Calcium 8.7 mg/dl (8.5-10.1); Creatinine Clr Calc Pharmacy 51.4 ml/min; Est GFR (Non-African American) 60.4; Potassium 4.2 mmol/L (3.5-5.1)
[2018-08-28] MEDS: FLUTICASONE HFA 220 MCG INHALER INH SCH ×2 (08:48→20:12)
[2018-08-28] MEDS: TORSEMIDE 20 MG TAB PO SCH (08:48)
[2018-08-28] MEDS: FERROUS SULFATE 325 MG TAB PO SCH (08:49)
[2018-08-28] MEDS: HEPARIN SOD 5,000 UNIT/0.5 ML VIAL SQ SCH ×2 (08:49→20:16)
[2018-08-28] MEDS: METOPROLOL TARTRATE 50 MG TAB PO SCH ×3 (09:33→20:18)
[2018-08-28] MEDS: BACLOFEN 10 MG TAB PO PRN (09:33)
[2018-08-28] MEDS: TIZANIDINE HCL 4 MG TABLET PO SCH ×2 (09:33→20:14)
--- NOTE | 2018-08-28 09:57 | Hospitalist Progress Note ---
Date of Service August 27, 2018 Assessment & Plan (1) Renal failure: Ms. Wilcox is an 78-year-old female with a history of longstanding Hypertension, SLE, GERD, Dyslipidemia, COPD, Pulmonary Hypertension, Right- Sided CHF, Valvular Heart Disease s/p Bioprosthetic AVR 2010, Severe TR, Hypothyroidism, Type 2 Diabetes Mellitus, Paroxysmal Atrial Fibrillation, and Nonobstructive CAD on Cardiac Catheterization 2010 who presents today with 3 week history of weakness, malaise, shortness of breath. Reports 3 day history of diarrhea and poor po intake. Last loose stool was just prior to admission. Denies prolonged antibiotics, although did have one dose of azithromycin prior to dental cleaning 1 week ago. Patient is currently admitted for renal failure. Patient numbers have improved as creatinine is normal. Held fluid as patient lungs had rales overnight and restarted her home duiretics. (2) Hyperkalemia: Hyperkalemia resolved with IVF and normalization of renal failure. (3) Diarrhea: Diarrhea has improved. Placed on immodium PRN. (4) Dehydration: As noted above. Stopped IVF (5) Bradycardia: (6) Afib: Bradycardic here -continue metoprolol (7) Hypothyroid: Last TSH in outpatient setting 2017 normal -recheck to r/o thyroid issue (8) COPD (chronic obstructive pulmonary disease): Continue home inhalers -complicated by right sided heart failure -O2 as needed -on home O2 3-4L at baseline (9) Aortic valve replaced: Bioprosthetic -stable (10) Right-sided heart failure: Known right sided failure. -BNP elevated 3680 here. -delicate balance between hydration and diuresis complicated by nonspecific viral illness and dehydration -follow. Consulted cardio who agrees patient requires IVF. Patient has been rehydrated and restarted her diurtecis. (11) Acute and chronic respiratory failure with hypoxia: modest pulmonary congestion in background of right sided CHF -O2 as needed (12) Hallucination, visual: Pt has insight that she is visually hallucinating -- likely multifactorial given e-lyte imbalances, acute renal failure -pt does have background of depression, is on quetiapine. -follow (13) Muscle spasm: Pt's muscle spasms are worse than usual per pt, and pt's brother -continue home meds: Baclofen, tizanidine -check magnesium, recheck potassium, likely contributory (14) Chest pain: symptoms not suggestive of acute ischemic etiology, nevertheless will trend troponins given significant comorbidities -monitor on Tele Spent 25 minutes in management of patient. Subjective 78 yo female reports feeling better today. She states she is less short of breath. She also notices that he diarrhea has improved. She also states that her tremors have decreased. Physical Exam 2 Vital Signs (Past 24 Hours): Last Vital Signs Temp 36.8 C 08/27/18 15:04 Pulse 52 08/27/18 15:04 Resp 20 08/27/18 15:04 BP 135/79 08/27/18 15:04 Pulse Ox 92 08/27/18 15:04 Physical Exam: GENERAL: Alert to person place and time, tired-appearing, in no distress. HENT: Normocephalic, atraumatic. Nasal cannula in place. Moist mucous membranes EYES: Normal conjunctiva. Sclera non-icteric. EOMI. +glasses. NECK: Supple. Full range of motion. JVD RESPIRATORY: Clear to auscultation. CARDIAC: Regular rate, normal rhythm, Extremities warm and well perfused. Pulses equal. ABDOMEN: Soft, non-distended. No tenderness to palpation. No rebound or guarding. No masses. Bowel sounds are normal. LOWER EXTREMITIES: Calves are equal size bilaterally and non-tender. No edema. No discoloration. +varicosities NEURO: No gross focal motor deficits noted. Speech is slow. Occasional spontaneous spasms, primarily in left upper extremity. SKIN: Rash not present. No jaundice noted. PSYCH: endorses visual hallucinations. Cooperative. Appropriate mood/affect. _ (1) Renal failure Acute renal failure type: unspecified Chronic kidney disease stage: Renal failure chronicity: acute Qualified Code(s): N17.9 - Acute kidney failure, unspecified
[2018-08-28] MEDS ORDERED: OXYCODONE HCL IR 5 MG TAB (IMMEDIATE RELEASE) PO STA (17:02)
[2018-08-28] MEDS: ALBUTEROL HFA 8 GM INHALER INH PRN (17:42)
[2018-08-28] MEDS: LIDOCAINE 5% 1 PATCH TD SCH (17:47)
[2018-08-28] MEDS: QUETIAPINE FUMARATE 25 MG TABLET PO SCH (20:13)
--- NOTE | 2018-08-28 23:14 | Hospitalist Progress Note ---
Date of Service August 28, 2018 Assessment & Plan (1) Renal failure: Ms. Wilcox is an 78-year-old female with a history of longstanding Hypertension, SLE, GERD, Dyslipidemia, COPD, Pulmonary Hypertension, Right- Sided CHF, Valvular Heart Disease s/p Bioprosthetic AVR 2010, Severe TR, Hypothyroidism, Type 2 Diabetes Mellitus, Paroxysmal Atrial Fibrillation, and Nonobstructive CAD on Cardiac Catheterization 2010 who presents today with 3 week history of weakness, malaise, shortness of breath. Reports 3 day history of diarrhea and poor po intake. Last loose stool was just prior to admission. Denies prolonged antibiotics, although did have one dose of azithromycin prior to dental cleaning 1 week ago. Patient is currently admitted for renal failure. Patient numbers have improved as creatinine is normal. Held fluid as patient lungs had rales , restarted her diuretics. Concern over possible pulmonary edema. Will check BNP in AM. May be difficult to reach balance of fluid given renal failure/ CHF history (2) Hyperkalemia: Hyperkalemia resolved with IVF and normalization of renal failure. (3) Diarrhea: Diarrhea has improved. Placed on immodium PRN. (4) Dehydration: As noted above. Stopped IVF (5) Bradycardia: (6) Afib: Bradycardic here -continue metoprolol (7) Hypothyroid: Last TSH in outpatient setting 2017 normal -recheck to r/o thyroid issue (8) COPD (chronic obstructive pulmonary disease): Continue home inhalers -complicated by right sided heart failure -O2 as needed -on home O2 3-4L at baseline (9) Aortic valve replaced: Bioprosthetic -stable (10) Right-sided heart failure: Known right sided failure. -BNP elevated 3680 here. -delicate balance between hydration and diuresis complicated by nonspecific viral illness and dehydration -follow. Consulted cardio who agrees patient requires IVF. Patient has been rehydrated and restarted her diurtecis. (11) Acute and chronic respiratory failure with hypoxia: modest pulmonary congestion in background of right sided CHF -O2 as needed (12) Hallucination, visual: Pt has insight that she is visually hallucinating -- likely multifactorial given e-lyte imbalances, acute renal failure -pt does have background of depression, is on quetiapine. -follow (13) Muscle spasm: muscle spasms have improved -continue home meds: Baclofen, tizanidine (14) Chest pain: symptoms not suggestive of acute ischemic etiology, nevertheless will trend troponins given significant comorbidities -monitor on Tele Spent 25 minutes in management of patient. Subjective 78 yo female reports ffeeling short of breath today. She however states that her diarrhea has subsided. She also states that her tremors have decreased. Physical Exam 2 Vital Signs (Past 24 Hours): Last Vital Signs Temp 37.1 C 08/28/18 19:48 Pulse 54 L 08/28/18 20:20 Resp 19 08/28/18 19:48 BP 166/85 H 08/28/18 19:48 Pulse Ox 96 08/28/18 19:48 Physical Exam: GENERAL: Alert to person place and time, tired-appearing, in no distress. HEENT: Normocephalic, atraumatic. Nasal cannula in place. Moist mucous membranes EYES: Normal conjunctiva. Sclera non-icteric. EOMI. +glasses. NECK: Supple. Full range of motion. JVD RESPIRATORY: wheezing heard CARDIAC: Regular rate, normal rhythm, Extremities warm and well perfused. Pulses equal. ABDOMEN: Soft, non-distended. No tenderness to palpation. No rebound or guarding. No masses. Bowel sounds are normal. LOWER EXTREMITIES: Calves are equal size bilaterally and non-tender. No edema. No discoloration. +varicosities NEURO: No gross focal motor deficits noted. Speech is slow. Occasional spontaneous spasms, primarily in left upper extremity. SKIN: Rash not present. No jaundice noted. PSYCH: endorses visual hallucinations. Cooperative. Appropriate mood/affect. _ (1) Renal failure Acute renal failure type: unspecified Chronic kidney disease stage: Renal failure chronicity: acute Qualified Code(s): N17.9 - Acute kidney failure, unspecified
[2018-08-29] MEDS: LEVOTHYROXINE SODIUM 112 MCG TABLET PO SCH (06:47)
[2018-08-29] MEDS: ACETAMINOPHEN 325 MG TAB PO PRN ×2 (06:47→19:56)
[2018-08-29] MEDS: FLUTICASONE HFA 220 MCG INHALER INH SCH ×2 (08:20→19:57)
[2018-08-29] MEDS: TORSEMIDE 20 MG TAB PO SCH (08:20)
[2018-08-29] MEDS: METOPROLOL TARTRATE 50 MG TAB PO SCH (08:20)
[2018-08-29] MEDS: LIDOCAINE 5% 1 PATCH TD SCH (08:20)
[2018-08-29] MEDS: HEPARIN SOD 5,000 UNIT/0.5 ML VIAL SQ SCH ×2 (08:21→19:58)
[2018-08-29] MEDS: FERROUS SULFATE 325 MG TAB PO SCH (08:21)
[2018-08-29] MEDS: TIZANIDINE HCL 4 MG TABLET PO SCH ×2 (08:21→19:58)
[2018-08-29] MEDS: BACLOFEN 10 MG TAB PO PRN (10:21)
[2018-08-29] MEDS ORDERED: OXYCODONE HCL IR 5 MG TAB (IMMEDIATE RELEASE) PO STA (17:38)
[2018-08-29] MEDS ORDERED: OXYCODONE HCL IR 5 MG TAB (IMMEDIATE RELEASE) PO PRN (17:38)
[2018-08-29] MEDS: ONDANSETRON 4 MG TAB PO PRN (17:57)
[2018-08-29] MEDS: METOPROLOL TARTRATE 25 MG TAB PO SCH (19:58)
[2018-08-30] MEDS: ONDANSETRON 4 MG TAB PO PRN ×2 (02:06→08:12)
[2018-08-30] MEDS: ACETAMINOPHEN 325 MG TAB PO PRN ×2 (02:06→07:57)
[2018-08-30] MEDS ORDERED: SODIUM CHLORIDE 0.65% NA SOLN 45 ML (OCEAN) PRN (04:36)
[2018-08-30] MEDS: LEVOTHYROXINE SODIUM 112 MCG TABLET PO SCH (05:46)
[2018-08-30] MEDS: HEPARIN SOD 5,000 UNIT/0.5 ML VIAL SQ SCH ×2 (07:16→20:55)
[2018-08-30] MEDS: LIDOCAINE 5% 1 PATCH TD SCH (07:56)
[2018-08-30] MEDS: TIZANIDINE HCL 4 MG TABLET PO SCH ×2 (07:58→20:58)
[2018-08-30] MEDS: FERROUS SULFATE 325 MG TAB PO SCH (07:58)
[2018-08-30] MEDS: METOPROLOL TARTRATE 25 MG TAB PO SCH ×2 (07:59→19:42)
[2018-08-30] MEDS: TORSEMIDE 20 MG TAB PO SCH (07:59)
[2018-08-30] MEDS: FLUTICASONE HFA 220 MCG INHALER INH SCH ×2 (07:59→20:57)
[2018-08-30] MEDS: BACLOFEN 10 MG TAB PO PRN (08:12)
[2018-08-30 09:34] LABS: Basophils # (auto) 0.01 K/uL (0-0.2); Basophils % (auto) 0.1 %; Eosinophils # (auto) 0.13 K/uL (0-0.5); Eosinophils % (auto) 1.9 %; Hematocrit (blood only) 36.4 % (37-47); Hemoglobin 11.5 g/dL (12.0-16.0); Immature Granulocytes # (auto) 0.01 K/uL (0.00-0.02); Immature Granulocytes % (auto) 0.1 %; Lymphocytes # (auto) 0.94 K/uL (1.2-3.4); Lymphocytes % (auto) 13.6 %; Mean Corpuscular Hgb Conc 31.6 g/dL (32-36); Mean Corpuscular Volume 99.2 fL (80-100); Mean Platelet Volume 9.7 fL (7.4-10.4); Monocytes # (auto) 0.91 K/uL (0.11-0.59); Monocytes % (auto) 13.2 %; Neutrophils # (auto) 4.89 K/uL (1.4-6.5); Neutrophils % (auto) 71.1 %; Platelet Count 218 K/uL (130-400); RDW Coefficient of Variation 15.2 % (11.5-14.5); RDW Standard Deviation 54.1 fL (36.4-46.3); Red Blood Count 3.67 M/uL (4.2-5.4); White Blood Count 6.89 K/uL (4.8-10.8)
[2018-08-30 10:03] LABS: BUN Creatinine Ratio 15.7 (10-20); Calcium 8.3 mg/dl (8.5-10.1); Est GFR (African American) 68.2; Est GFR (Non-African American) 58.8; Potassium 3.6 mmol/L (3.5-5.1)
--- NOTE | 2018-08-30 15:44 | Hospitalist Progress Note ---
Date of Service August 29, 2018 Assessment & Plan (1) Renal failure: Ms. Wilcox is an 78-year-old female with a history of longstanding Hypertension, SLE, GERD, Dyslipidemia, COPD, Pulmonary Hypertension, Right- Sided CHF, Valvular Heart Disease s/p Bioprosthetic AVR 2010, Severe TR, Hypothyroidism, Type 2 Diabetes Mellitus, Paroxysmal Atrial Fibrillation, and Nonobstructive CAD on Cardiac Catheterization 2010 who presents today with 3 week history of weakness, malaise, shortness of breath. Reports 3 day history of diarrhea and poor po intake. Last loose stool was just prior to admission. Denies prolonged antibiotics, although did have one dose of azithromycin prior to dental cleaning 1 week ago. Appears to have resolved. Likely from her worseneing diarrhea. Her creatinine is now better. She is tolerating her home diuretics. sHE DEVELOPED RALES, which is likely from her fluid. She is also above her normal weight. Eventhough her net fluid sttaus since admission is near zero. Her creatinine has continued to improve. (2) Hyperkalemia: Hyperkalemia resolved with IVF and normalization of renal failure. (3) Diarrhea: Diarrhea has improved. Placed on immodium PRN. (4) Dehydration: As noted above. Stopped IVF (5) Bradycardia: (6) Afib: Bradycardic here -continue metoprolol (7) Hypothyroid: Last TSH in outpatient setting 2017 normal -recheck to r/o thyroid issue (8) COPD (chronic obstructive pulmonary disease): Continue home inhalers -complicated by right sided heart failure -O2 as needed -on home O2 3-4L at baseline (9) Aortic valve replaced: Bioprosthetic -stable (10) Right-sided heart failure: As noted above, patient reuqires more diuresisng now that she is no longer in acute renal failure. Will continue her home diuretic. And will continue to monitor. Known right sided failure. -delicate balance between hydration and diuresis complicated by nonspecific viral illness and dehydration (11) Acute and chronic respiratory failure with hypoxia: modest pulmonary congestion in background of right sided CHF -O2 as needed (12) Hallucination, visual: Pt has insight that she is visually hallucinating -- likely multifactorial given e-lyte imbalances, acute renal failure -pt does have background of depression, is on quetiapine. -follow (13) Muscle spasm: muscle spasms have improved -continue home meds: Baclofen, tizanidine (14) Chest pain: symptoms not suggestive of acute ischemic etiology, nevertheless will trend troponins given significant comorbidities -monitor on Tele Spent 25 minutes in management of patient. Subjective 78 yo female reports feeling short of breath today. She however states that her diarrhea has subsided. She also states that her tremors have decreased. Physical Exam 2 Vital Signs (Past 24 Hours): Last Vital Signs Temp 37 C 08/29/18 15:31 Pulse 52 08/29/18 15:31 Resp 19 08/29/18 15:31 BP 169/83 08/29/18 15:31 Pulse Ox 96 08/29/18 15:31 Physical Exam: GENERAL: Alert to person place and time, tired-appearing, in no distress. HEENT: Normocephalic, atraumatic. Nasal cannula in place. Moist mucous membranes EYES: Normal conjunctiva. Sclera non-icteric. EOMI. +glasses. NECK: Supple. Full range of motion. JVD RESPIRATORY: wheezing heard CARDIAC: Regular rate, normal rhythm, bibasilar rales noted. Extremities warm and well perfused. Pulses equal. ABDOMEN: Soft, non-distended. No tenderness to palpation. No rebound or guarding. No masses. Bowel sounds are normal. LOWER EXTREMITIES: Calves are equal size bilaterally and non-tender. No edema. No discoloration. +varicosities NEURO: No gross focal motor deficits noted. Speech is slow. Occasional spontaneous spasms, primarily in left upper extremity. SKIN: Rash not present. No jaundice noted. PSYCH: endorses visual hallucinations. Cooperative. Appropriate mood/affect. _ (1) Renal failure Acute renal failure type: unspecified Chronic kidney disease stage: Renal failure chronicity: acute Qualified Code(s): N17.9 - Acute kidney failure, unspecified
--- NOTE | 2018-08-30 15:49 | Hospitalist Progress Note ---
Date of Service August 30, 2018 Assessment & Plan (1) Renal failure: Ms. Wilcox is an 78-year-old female with a history of longstanding Hypertension, SLE, GERD, Dyslipidemia, COPD, Pulmonary Hypertension, Right- Sided CHF, Valvular Heart Disease s/p Bioprosthetic AVR 2010, Severe TR, Hypothyroidism, Type 2 Diabetes Mellitus, Paroxysmal Atrial Fibrillation, and Nonobstructive CAD on Cardiac Catheterization 2010 who presents today with 3 week history of weakness, malaise, shortness of breath. Reports 3 day history of diarrhea and poor po intake. Last loose stool was just prior to admission. Denies prolonged antibiotics, although did have one dose of azithromycin prior to dental cleaning 1 week ago. Appears to have resolved. Likely from worsening diarrhea. Her creatinine is now better. She is tolerating her home diuretics. SHE DEVELOPED RALES, which is likely from her fluid overload. She is also above her normal weight which is about 78-80 kg Eventhough her net fluid status is now over negative 1 liter. Her creatinine has continued to improve. (2) Hyperkalemia: Hyperkalemia resolved with IVF and normalization of renal failure. (3) Diarrhea: Diarrhea has improved. Placed on immodium PRN. (4) Dehydration: As noted above. Stopped IVF (5) Bradycardia: (6) Afib: Bradycardic here -continue metoprolol, decreased dose to 25 mg PO BID. May consider switching to toprol XL. given her right sided heart failure. (7) Hypothyroid: Last TSH in outpatient setting 2017 normal -recheck to r/o thyroid issue (8) COPD (chronic obstructive pulmonary disease): Continue home inhalers -complicated by right sided heart failure -O2 as needed -on home O2 3-4L at baseline (9) Aortic valve replaced: Bioprosthetic -stable (10) Right-sided heart failure: As noted above, patient requires more diuresisng now that she is no longer in acute renal failure. Will continue her home diuretic. And will continue to monitor. Known right sided failure. -delicate balance between hydration and diuresis complicated by nonspecific viral illness and dehydration -Will discuss with cardiology, may consider adding dhara inhibior given her blood pressure is elevated. (11) Acute and chronic respiratory failure with hypoxia: modest pulmonary congestion in background of right sided CHF -O2 as needed (12) Hallucination, visual: Pt has insight that she is visually hallucinating -- likely multifactorial given e-lyte imbalances, acute renal failure -pt does have background of depression, is on quetiapine. -follow Today on 08/30, patient is not hallucinating. (13) Muscle spasm: muscle spasms have improved -continue home meds: Baclofen, tizanidine (14) Hypertension: On beta rox, may consider adding dhara inhibitor. (15) Chest pain: symptoms not suggestive of acute ischemic etiology, nevertheless will trend troponins given significant comorbidities -monitor on Tele Spent 25 minutes in management of patient. Subjective 78 yo female reports feeling less short of breath today. Patient denies any chest pain or diarrhea. Physical Exam 2 Vital Signs (Past 24 Hours): Last Vital Signs Temp 36.7 C 08/30/18 14:50 Pulse 58 L 08/30/18 14:50 Resp 18 08/30/18 14:50 BP 145/84 H 08/30/18 14:50 Pulse Ox 96 08/30/18 14:50 Physical Exam: GENERAL: Alert to person place and time, in no distress. HEENT: Normocephalic, atraumatic. Nasal cannula in place. Moist mucous membranes EYES: Normal conjunctiva. Sclera non-icteric. EOMI. +glasses. NECK: Supple. Full range of motion. JVD RESPIRATORY: No wheezing, decreased rales CARDIAC: Regular rate, normal rhythm, bibasilar rales noted. Extremities warm and well perfused. Pulses equal. ABDOMEN: Soft, non-distended. No tenderness to palpation. No rebound or guarding. No masses. Bowel sounds are normal. LOWER EXTREMITIES: Calves are equal size bilaterally and non-tender. No edema. No discoloration. +varicosities NEURO: No gross focal motor deficits noted. Speech is slow. Occasional spontaneous spasms, primarily in left upper extremity. SKIN: Rash not present. No jaundice noted. PSYCH: Cooperative. Appropriate mood/affect. No hallucinations. _ (1) Renal failure Acute renal failure type: unspecified Chronic kidney disease stage: Renal failure chronicity: acute Qualified Code(s): N17.9 - Acute kidney failure, unspecified
[2018-08-30] MEDS: FLUTICASONE PROPIONATE NA SPR 16 GM BTL SCH (20:57)
[2018-08-30] MEDS: POTASSIUM CHLORIDE 20 MEQ TABCR PO SCH (20:57)
[2018-08-30] MEDS: LORATADINE 10 MG TAB PO SCH (20:59)
[2018-08-30] MEDS: QUETIAPINE FUMARATE 25 MG TABLET PO SCH (21:00)
[2018-08-31] MEDS: OXYCODONE HCL IR 5 MG TAB (IMMEDIATE RELEASE) PO PRN ×2 (03:53→20:36)
[2018-08-31] MEDS: ACETAMINOPHEN 325 MG TAB PO PRN ×2 (03:59→07:42)
[2018-08-31] MEDS: LEVOTHYROXINE SODIUM 112 MCG TABLET PO SCH (06:27)
[2018-08-31] MEDS: TORSEMIDE 20 MG TAB PO SCH (07:43)
[2018-08-31] MEDS: LIDOCAINE 5% 1 PATCH TD SCH (07:43)
[2018-08-31] MEDS: METOPROLOL TARTRATE 25 MG TAB PO SCH ×2 (07:43→20:25)
[2018-08-31] MEDS: FLUTICASONE PROPIONATE NA SPR 16 GM BTL SCH ×2 (07:43→20:22)
[2018-08-31] MEDS: FLUTICASONE HFA 220 MCG INHALER INH SCH ×2 (07:44→20:22)
[2018-08-31] MEDS: FERROUS SULFATE 325 MG TAB PO SCH (07:44)
[2018-08-31] MEDS: TIZANIDINE HCL 4 MG TABLET PO SCH ×2 (07:44→20:25)
[2018-08-31] MEDS: POTASSIUM CHLORIDE 20 MEQ TABCR PO SCH ×4 (07:47→21:53)
[2018-08-31] MEDS: HEPARIN SOD 5,000 UNIT/0.5 ML VIAL SQ SCH ×2 (07:47→20:23)
--- NOTE | 2018-08-31 10:14 | Hospitalist Progress Note ---
Date of Service August 31, 2018 Assessment & Plan (1) Renal failure: Ms. Wilcox is an 78-year-old female with a history of longstanding Hypertension, SLE, GERD, Dyslipidemia, COPD, Pulmonary Hypertension, Right- Sided CHF, Valvular Heart Disease s/p Bioprosthetic AVR 2010, Severe TR, Hypothyroidism, Type 2 Diabetes Mellitus, Paroxysmal Atrial Fibrillation, and Nonobstructive CAD on Cardiac Catheterization 2010 who presents today with 3 week history of weakness, malaise, shortness of breath. Reports 3 day history of diarrhea and poor po intake. Last loose stool was just prior to admission. Denies prolonged antibiotics, although did have one dose of azithromycin prior to dental cleaning 1 week ago. Appears to have resolved. Likely from worsening diarrhea. Her creatinine is now better. She is tolerating her home diuretics. SHE DEVELOPED RALES, which is likely from her fluid overload. She is also above her normal weight which is about 78-80 kg Eventhough her net fluid status is now over negative 2 liters. Her creatinine has continued to improve. D/W cardio will add lisinopril 10 mg PO daily today and monitor. (2) Hyperkalemia: Hyperkalemia resolved with IVF and normalization of renal failure. (3) Diarrhea: Diarrhea has improved. Placed on immodium PRN. (4) Dehydration: As noted above. Stopped IVF (5) Bradycardia: (6) Afib: Bradycardic here -continue metoprolol, decreased dose to 25 mg PO BID. May consider switching to toprol XL. given her right sided heart failure. (7) Hypothyroid: Last TSH in outpatient setting 2017 normal -recheck to r/o thyroid issue (8) COPD (chronic obstructive pulmonary disease): Continue home inhalers -complicated by right sided heart failure -O2 as needed -on home O2 3-4L at baseline (9) Aortic valve replaced: Bioprosthetic -stable (10) Right-sided heart failure: As noted above, patient requires more diuresisng now that she is no longer in acute renal failure. Will continue her home diuretic. And will continue to monitor. Known right sided failure. -delicate balance between hydration and diuresis complicated by nonspecific viral illness and dehydration -Will discuss with cardiology, may consider adding dhara inhibior given her blood pressure is elevated. (11) Acute and chronic respiratory failure with hypoxia: modest pulmonary congestion in background of right sided CHF -O2 as needed (12) Hallucination, visual: Pt has insight that she is visually hallucinating -- likely multifactorial given e-lyte imbalances, acute renal failure -pt does have background of depression, is on quetiapine. -follow Today on 08/31, patient is not hallucinating. (13) Muscle spasm: muscle spasms have improved -continue home meds: Baclofen, tizanidine (14) Hypertension: On beta rox, may consider adding dhara inhibitor. (15) Chest pain: symptoms not suggestive of acute ischemic etiology, nevertheless will trend troponins given significant comorbidities -monitor on Tele Spent 25 minutes in management of patient. Subjective Patient had elevated BP overnight. Patient reports this was accompanied by headache. Patient reports that her stools are formed. She states her last echo was in 2016. Physical Exam 2 Vital Signs (Past 24 Hours): Last Vital Signs Temp 36.5 C 08/31/18 08:56 Pulse 64 08/31/18 08:56 Resp 16 08/31/18 08:56 BP 173/86 08/31/18 08:56 Pulse Ox 94 08/31/18 08:15 Physical Exam: GENERAL: Alert to person place and time, in no distress. HEENT: Normocephalic, atraumatic. Nasal cannula in place. Moist mucous membranes EYES: Normal conjunctiva. Sclera non-icteric. EOMI. +glasses. NECK: Supple. Full range of motion. JVD RESPIRATORY: No wheezing, clear. CARDIAC: Regular rate, normal rhythm, bibasilar rales noted. Extremities warm and well perfused. Pulses equal. ABDOMEN: Soft, non-distended. No tenderness to palpation. No rebound or guarding. No masses. Bowel sounds are normal. LOWER EXTREMITIES: Calves are equal size bilaterally and non-tender. No edema. No discoloration. +varicosities NEURO: No gross focal motor deficits noted. Speech is slow. Occasional spontaneous spasms, primarily in left upper extremity. SKIN: Rash not present. No jaundice noted. PSYCH: Cooperative. Appropriate mood/affect. No hallucination _ (1) Renal failure Acute renal failure type: unspecified Chronic kidney disease stage: Renal failure chronicity: acute Qualified Code(s): N17.9 - Acute kidney failure, unspecified
[2018-08-31 10:20] LABS: BUN Creatinine Ratio 13.1 (10-20); Calcium 8.1 mg/dl (8.5-10.1); Est GFR (Non-African American) 64.7; Potassium 3.4 mmol/L (3.5-5.1)
[2018-08-31] MEDS: LISINOPRIL 10 MG TAB PO SCH (11:29)
[2018-08-31] MEDS: LORATADINE 10 MG TAB PO SCH (20:22)
[2018-08-31] MEDS: ONDANSETRON 4 MG TAB PO PRN (20:22)
[2018-08-31] MEDS: BACLOFEN 10 MG TAB PO PRN (20:41)
[2018-09-01] MEDS: ACETAMINOPHEN 325 MG TAB PO PRN (01:20)
[2018-09-01] MEDS: OXYCODONE HCL IR 5 MG TAB (IMMEDIATE RELEASE) PO PRN ×3 (06:21→21:45)
[2018-09-01] MEDS: LEVOTHYROXINE SODIUM 112 MCG TABLET PO SCH (06:21)
--- NOTE | 2018-09-01 08:12 | Hospitalist Progress Note ---
Date of Service September 01, 2018 Assessment & Plan (1) Renal failure: Ms. Wilcox is an 78-year-old female with a history of longstanding Hypertension, SLE, GERD, Dyslipidemia, COPD, Pulmonary Hypertension, Right- Sided CHF, Valvular Heart Disease s/p Bioprosthetic AVR 2010, Severe TR, Hypothyroidism, Type 2 Diabetes Mellitus, Paroxysmal Atrial Fibrillation, and Nonobstructive CAD on Cardiac Catheterization 2010 who presents with 3 week history of weakness, malaise, shortness of breath. Reports 3 day history of diarrhea and poor po intake. Last loose stool was just prior to admission. Denies prolonged antibiotics, although did have one dose of azithromycin prior to dental cleaning 1 week ago. Likely ATN from worsening diarrhea. She has resumed her home diuretics.. D/W cardio added lisinopril 10 mg PO daily, bradycardia to the 30's will hold b rox (2) Hyperkalemia: Hyperkalemia remains will increase KCL supplementation (3) Diarrhea: Diarrhea has improved. does not appear to be bacterial or c diff Placed on immodium PRN. (4) Dehydration: resolved (5) Bradycardia: (6) Afib: Bradycardic does have some symptomatic awareness when directly questioned especially at night being awoken by air hunger -discontinue metoprolol consider coreg if needing b blockage continue dhara i (7) Hypothyroid: Last TSH in outpatient setting 2017 normal -recheck shows in normal range for tsh and T4 (8) COPD (chronic obstructive pulmonary disease): Stable on home inhalers -complicated by right sided heart failure -O2 as needed -on home O2 3-4L at baseline (9) Aortic valve replaced: Bioprosthetic -stable (10) 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, need to balance fluid and renal failure, chronically on oxygen (11) Acute and chronic respiratory failure with hypoxia: modest pulmonary congestion in background of right sided CHF -O2 as needed (12) Hallucination, visual: Pt had insight that she is visually hallucinating -- likely multifactorial given e-lyte imbalances, acute renal failure -pt does have background of depression, is on quetiapine. -follow on 08/31 and 09/01, patient is no longer hallucinating. (13) Muscle spasm: muscle spasms have improved -continue home meds: Baclofen, tizanidine this could also impact her hallucinations (14) Hypertension: stopping beta rox, adding dhara inhibitor. will have hydralazine and clonidine PRN for bp backup (15) Chest pain: symptoms not suggestive of acute ischemic etiology, troponin peaked at 0.09 suggesting any rise will be supply demand mismatch OR DEMAND ISCHEMIA Subjective Patient has persistent shortness of breath she is symptomatic with her bradycardia at times he does feel improved when she came in having issues of blood pressure control but then bradycardia associate with medications Review of Systems ROS: Patient feels weak and tired No double vision blurry vision No problems with speech or swallowing No palpitations, chest pain or pressure Patient is dyspnea on exertion No abdominal pain nausea vomiting diarrhea changes in appetite or weight No burning urine urine frequency or changes in color No focal joint pain or muscle pain No skin rashes or oral lesions No unusual bruising or bleeding No focused back pain or numbness or loss of strength No changes in memory or confusion but feels lethargic Physical Exam 2 Vital Signs (Past 24 Hours): Last Vital Signs Temp 36.3 C L 09/01/18 07:15 Pulse 43 L 09/01/18 07:15 Resp 18 09/01/18 07:15 BP 131/80 09/01/18 07:15 Pulse Ox 93 09/01/18 07:15 The patient appeared fatigued and dyspneic Vital signs as documented. Bradycardia is noted Head exam is unremarkable. normocephalic, atraumatic Neck is without jugular venous distension, thyromegaly, or lymphademopathy Lungs are with occasional rales that clear Cardiac exam reveals bradycardic at times but with exertion comes up to the 70s. First and second heart sounds normal. Abdominal exam reveals normal bowel sounds, no masses, no organomegaly Extremities are nonedematous and both pedal pulses are present Neurologic exam is A&Ox3, no focal deficits, strength is equal bilateral Psychologically seems neither anxious or depressed _ (1) Renal failure Acute renal failure type: unspecified Chronic kidney disease stage: Renal failure chronicity: acute Qualified Code(s): N17.9 - Acute kidney failure, unspecified
[2018-09-01] MEDS: LISINOPRIL 10 MG TAB PO SCH (08:45)
[2018-09-01] MEDS: TORSEMIDE 20 MG TAB PO SCH (08:45)
[2018-09-01] MEDS: TIZANIDINE HCL 4 MG TABLET PO SCH ×2 (08:46→22:15)
[2018-09-01] MEDS: POTASSIUM CHLORIDE 20 MEQ TABCR PO SCH ×3 (08:46→21:40)
[2018-09-01] MEDS: HEPARIN SOD 5,000 UNIT/0.5 ML VIAL SQ SCH ×2 (08:47→21:40)
[2018-09-01] MEDS: FLUTICASONE HFA 220 MCG INHALER INH SCH ×2 (08:48→21:40)
[2018-09-01] MEDS: FLUTICASONE PROPIONATE NA SPR 16 GM BTL SCH ×2 (08:48→21:39)
[2018-09-01] MEDS: FERROUS SULFATE 325 MG TAB PO SCH (08:49)
[2018-09-01] MEDS: LIDOCAINE 5% 1 PATCH TD SCH (08:49)
[2018-09-01] MEDS: METOPROLOL TARTRATE 25 MG TAB PO SCH (08:58)
[2018-09-01] MEDS: BACLOFEN 10 MG TAB PO PRN (09:23)
--- NOTE | 2018-09-01 14:23 | Cardiology Progress Note ---
Date of Service September 01, 2018 Assessment & Plan (1) Acute and chronic respiratory failure with hypoxia: Improving. Continue supplemental O2. (2) Bradycardia: Not likely symptomatic at this time. Has been a longstanding finding. (3) Afib: She remains in normal sinus rhythm at this time. Failed a trial of outpatient anticoagulation therapy. (4) Right-sided heart failure: She is near euvolemic today. Recommend continued PO Torsemide 10mg as long as her creatinine is stable. We discussed daily weights and low sodium diet. She will need close monitoring of her fluid balance. She will follow up within one week from discharge with the heart failure program. Labs will be ordered prior to her appointment. Subjective HEART FAILURE PROGRAM: She is resting comfortably today. She feels that she is improving. Her shortness of breath is resolving. She was able to do PT today. She is essentially flat in bed and denies orthopnea or PND. She continues supplemental O2. She does feel that she continues to have lower extremity edema. She continues to diurese on Toresmide 10mg daily. She is negative 2.4 L for her stay and down 2 kg. No labs today. Physical Exam 2 Vital Signs (Past 24 Hours): Last Vital Signs Temp 36.5 C 09/01/18 12:27 Pulse 51 L 09/01/18 12:27 Resp 18 09/01/18 12:27 BP 136/80 09/01/18 12:27 Pulse Ox 97 09/01/18 12:27 Physical Exam: Constitutional: Alert, cooperative and in no distress. HEENT: Unremarkable Neck: No jugular venous distention, carotid pulses are normal and equal bilaterally without bruits. Pulmonary: Clear to auscultation bilaterally. Cardiac: Regular rhythm with no murmur, gallop or rub. Abdomen: Soft, nontender with normal bowel sounds. Extremities: Trace bilateral lower extremity edema. Distal pulses intact. Neurologic: No focal findings. Gait is steady. Skin: No rash, ecchymoses or petechiae.
[2018-09-01] MEDS: HydrALAZINE HCL 20 MG/ML VIAL IV PRN (21:45)
[2018-09-01] MEDS: QUETIAPINE FUMARATE 25 MG TABLET PO SCH (22:14)
[2018-09-01] MEDS: LORATADINE 10 MG TAB PO SCH (22:14)
[2018-09-01] MEDS: ONDANSETRON 4 MG TAB PO PRN (22:16)
[2018-09-02] MEDS: PROMETHAZINE HCL 12.5 MG in SODIUM CHLORIDE 0.9% 50 ML IV PRN ×2 (00:29→19:14)
[2018-09-02] MEDS: BACLOFEN 10 MG TAB PO PRN ×2 (01:53→14:31)
[2018-09-02] MEDS: ACETAMINOPHEN 325 MG TAB PO PRN ×2 (04:50→16:27)
[2018-09-02] MEDS: LEVOTHYROXINE SODIUM 112 MCG TABLET PO SCH (06:46)
[2018-09-02 07:38] LABS: BUN Creatinine Ratio 15.6 (10-20); Calcium 8.6 mg/dl (8.5-10.1); Creatinine Clr Calc Pharmacy 48.6 ml/min; Est GFR (African American) 67.3; Magnesium 1.9 mg/dl (1.8-2.4); Potassium 4.4 mmol/L (3.5-5.1)
[2018-09-02] MEDS: ONDANSETRON 4 MG TAB PO PRN ×2 (08:16→14:32)
[2018-09-02] MEDS: POTASSIUM CHLORIDE 20 MEQ TABCR PO SCH ×3 (08:16→21:38)
[2018-09-02] MEDS: ALBUTEROL HFA 8 GM INHALER INH PRN (08:17)
[2018-09-02] MEDS: FLUTICASONE PROPIONATE NA SPR 16 GM BTL SCH ×2 (08:17→21:40)
[2018-09-02] MEDS: FLUTICASONE HFA 220 MCG INHALER INH SCH ×2 (08:17→21:40)
[2018-09-02] MEDS: HEPARIN SOD 5,000 UNIT/0.5 ML VIAL SQ SCH ×2 (08:17→21:39)
[2018-09-02] MEDS: TIZANIDINE HCL 4 MG TABLET PO SCH ×2 (08:48→21:39)
[2018-09-02] MEDS: FERROUS SULFATE 325 MG TAB PO SCH (08:48)
[2018-09-02] MEDS: TORSEMIDE 20 MG TAB PO SCH (08:49)
[2018-09-02] MEDS: LISINOPRIL 10 MG TAB PO SCH (08:49)
[2018-09-02] MEDS: LIDOCAINE 5% 1 PATCH TD SCH (08:55)
[2018-09-02] MEDS: OXYCODONE HCL IR 5 MG TAB (IMMEDIATE RELEASE) PO PRN ×2 (13:24→19:15)
[2018-09-02] MEDS ORDERED: MICONAZOLE NITRATE POWDER 43 GM EXT PRN (14:06)
[2018-09-02] MEDS: LOPERAMIDE HCL 2 MG CAP PO PRN (14:34)
--- NOTE | 2018-09-02 16:13 | Hospitalist Progress Note ---
Date of Service September 02, 2018 Assessment & Plan (1) Renal failure: Ms. Wilcox is an 78-year-old female with a history of longstanding Hypertension, SLE, GERD, Dyslipidemia, COPD, Pulmonary Hypertension, Right- Sided CHF, Valvular Heart Disease s/p Bioprosthetic AVR 2010, Severe TR, Hypothyroidism, Type 2 Diabetes Mellitus, Paroxysmal Atrial Fibrillation, and Nonobstructive CAD on Cardiac Catheterization 2010 who presents with 3 week history of weakness, malaise, shortness of breath. Reports 3 day history of diarrhea and poor po intake. Last loose stool was just prior to admission. Denies prolonged antibiotics, although did have one dose of azithromycin prior to dental cleaning 1 week ago. Likely ATN from worsening diarrhea. This has improved creatinine is been stable She has resumed her home diuretics.. D/W cardio added lisinopril and increased it to 20 mg PO daily on 09/02, bradycardia has resolved (2) Hyperkalemia: Hypokalemia subsequently requiring supplementation (3) Diarrhea: Diarrhea has resolved does not appear to be bacterial or c diff Placed on immodium PRN. (4) Dehydration: resolved (5) Bradycardia: (6) Afib: -discontinued metoprolol did have a short run of A. fib in the middle of the night. Her heart rate has been improved she is no longer symptoms of air hunger at night speaking to cardiology we will continue dhara i F additional rate related medications are required diltiazem will be the choice (7) Hypothyroid: Last TSH in outpatient setting 2017 normal -recheck shows in normal range for tsh and T4 (8) COPD (chronic obstructive pulmonary disease): Stable on home inhalers -complicated by right sided heart failure Patient feels return to her baseline -on home O2 3-4L at baseline (9) Aortic valve replaced: Bioprosthetic -stable murmur is heard and felt to be stable (10) 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, need to balance fluid and renal failure, chronically on oxygen (11) Acute and chronic respiratory failure with hypoxia: modest pulmonary congestion in background of right sided CHF -O2 as needed (12) Hallucination, visual: Pt had insight that she is visually hallucinating -- likely multifactorial given e-lyte imbalances, acute renal failure -pt does have background of depression, is on quetiapine. -follow Remains without any residual hallucinations (13) Muscle spasm: muscle spasms have resolved -continue home meds: Baclofen, tizanidine this could also impact her hallucinations (14) Hypertension: stopping beta rox, increasing her lisinopril to 20 mg a day with an additional dose on 09/02 to make the 20. will have hydralazine and clonidine PRN for bp backup (15) Chest pain: No additional chest pain and original symptoms not suggestive of acute ischemic etiology, troponin peaked at 0.09 suggesting any rise will be supply demand mismatch OR DEMAND ISCHEMIA Subjective Patient had some episodes this morning where blood rate blood pressure was high she was feeling poorly from it reportedly had a short run of rapid atrial fib but this self resolved she is now in sinus rhythm once again. I personally discussed with Dr. Roberson about medication changes as we did discontinue her beta -rox. He recommended continuing to stick with lisinopril without rate controlling medications unless she declares a need for them to consider diltiazem Review of Systems ROS: well nourished well developed. No double vision blurry vision No problems with speech or swallowing No palpitations, chest pain or pressure No Wheezing or breathing issues No abdominal pain she did experience some mild nausea without vomiting this a.m. associated with elevated blood pressure No burning urine urine frequency or changes in color No focal joint pain or muscle pain No skin rashes or oral lesions No unusual bruising or bleeding No focused back pain or numbness or loss of strength No changes in memory or confusion Physical Exam 2 Vital Signs (Past 24 Hours): Last Vital Signs Temp 36.7 C 09/02/18 15:29 Pulse 82 09/02/18 15:29 Resp 18 09/02/18 15:29 BP 137/73 09/02/18 15:29 Pulse Ox 94 09/02/18 15:29 The patient appeared well nourished and normally developed. At the time of my evaluation Vital signs as documented. Blood pressure still might mildly elevated she is in sinus rhythm Head exam is unremarkable. normocephalic, atraumatic Neck is without jugular venous distension, thyromegaly, or lymphademopathy Lungs are clear to auscultation and percussion. Cardiac exam reveals Rhythm is regular. Stock murmurs are heard. Abdominal exam reveals normal bowel sounds, no masses, no organomegaly soft and nontender Extremities are nonedematous and both pedal pulses are present Neurologic exam is A&Ox3, no focal deficits, strength is equal bilateral Psychologically seems neither anxious or depressed Skin is warm Dry without bruises or lesions _ (1) Renal failure Acute renal failure type: unspecified Chronic kidney disease stage: Renal failure chronicity: acute Qualified Code(s): N17.9 - Acute kidney failure, unspecified
[2018-09-02] MEDS ORDERED: LISINOPRIL 10 MG TAB PO ONE (16:15)
[2018-09-02] MEDS ORDERED: HYDROCORTISONE 1% CRM 30 GM TUBE EXT PRN (21:31)
[2018-09-02] MEDS: LORATADINE 10 MG TAB PO SCH (21:38)
[2018-09-03] MEDS: BACLOFEN 10 MG TAB PO PRN (00:04)
[2018-09-03] MEDS: OXYCODONE HCL IR 5 MG TAB (IMMEDIATE RELEASE) PO PRN ×2 (00:06→13:00)
[2018-09-03] MEDS: ACETAMINOPHEN 325 MG TAB PO PRN ×2 (00:07→15:20)
[2018-09-03] MEDS: LEVOTHYROXINE SODIUM 112 MCG TABLET PO SCH (06:00)
[2018-09-03] MEDS: TORSEMIDE 20 MG TAB PO SCH ×2 (07:40→07:42)
[2018-09-03] MEDS: TIZANIDINE HCL 4 MG TABLET PO SCH ×2 (07:41→20:33)
[2018-09-03] MEDS: FERROUS SULFATE 325 MG TAB PO SCH (07:41)
[2018-09-03] MEDS: HEPARIN SOD 5,000 UNIT/0.5 ML VIAL SQ SCH ×2 (07:43→19:48)
[2018-09-03] MEDS: POTASSIUM CHLORIDE 20 MEQ TABCR PO SCH ×3 (07:43→20:33)
[2018-09-03] MEDS: FLUTICASONE PROPIONATE NA SPR 16 GM BTL SCH ×2 (07:44→20:30)
[2018-09-03] MEDS: ALBUTEROL HFA 8 GM INHALER INH PRN (07:44)
[2018-09-03] MEDS: LIDOCAINE 5% 1 PATCH TD SCH (07:44)
[2018-09-03] MEDS: FLUTICASONE HFA 220 MCG INHALER INH SCH ×2 (07:44→20:31)
[2018-09-03] MEDS: LISINOPRIL 20 MG TAB PO SCH (07:45)
[2018-09-03 07:58] LABS: Hematocrit (blood only) 36.5 % (37-47); Hemoglobin 11.5 g/dL (12.0-16.0); Mean Corpuscular Hgb Conc 31.5 g/dL (32-36); Mean Corpuscular Volume 98.1 fL (80-100); Mean Platelet Volume 9.8 fL (7.4-10.4); Platelet Count 219 K/uL (130-400); RDW Coefficient of Variation 15.2 % (11.5-14.5); RDW Standard Deviation 54.4 fL (36.4-46.3); Red Blood Count 3.72 M/uL (4.2-5.4); White Blood Count 5.66 K/uL (4.8-10.8)
[2018-09-03 08:37] LABS: Calcium 9.4 mg/dl (8.5-10.1); Creatinine Clr Calc Pharmacy 47.4 ml/min; Est GFR (African American) 65.6; Est GFR (Non-African American) 56.6; Potassium 4.6 mmol/L (3.5-5.1)
--- NOTE | 2018-09-03 14:57 | Hospitalist Progress Note ---
Date of Service September 03, 2018 Assessment & Plan (1) Renal failure: Ms. Wilcox is an 78-year-old female with a history of longstanding Hypertension, SLE, GERD, Dyslipidemia, COPD, Pulmonary Hypertension, Right- Sided CHF, Valvular Heart Disease s/p Bioprosthetic AVR 2010, Severe TR, Hypothyroidism, Type 2 Diabetes Mellitus, Paroxysmal Atrial Fibrillation, and Nonobstructive CAD on Cardiac Catheterization 2010 who presents with 3 week history of weakness, malaise, shortness of breath. Reports 3 day history of diarrhea and poor po intake. Last loose stool was just prior to admission. Denies prolonged antibiotics, although did have one dose of azithromycin prior to dental cleaning 1 week ago. ATN from worsening diarrhea-> resolved . She has resumed her home diuretics. mDemedex D/W cardio added lisinopril and increased it to 20 mg PO daily on 09/02, bradycardia has resolved (2) Hyperkalemia: Hypokalemia subsequently requiring supplementation due to demedex (3) Diarrhea: Diarrhea has resolved does not appear to be bacterial or c diff Placed on immodium PRN. (4) Dehydration: resolved (5) Bradycardia: (6) Afib: -discontinued metoprolol did have a short run of A. fib in the middle of the night. Her heart rate has been improved she is no longer symptoms of air hunger at night speaking to cardiology if she would require additional rate control consider diltiazem (7) Hypothyroid: Last TSH in outpatient setting 2017 normal -recheck shows in normal range for tsh and T4 (8) COPD (chronic obstructive pulmonary disease): Stable on home inhalers -complicated by right sided heart failure Patient feels return to her baseline -on home O2 3-4L at baseline (9) Aortic valve replaced: Bioprosthetic -stable murmur is heard and felt to be stable (10) 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, need to balance fluid and renal failure, chronically on oxygen (11) Acute and chronic respiratory failure with hypoxia: modest pulmonary congestion in background of right sided CHF -O2 as needed (12) Hallucination, visual: Pt had insight that she is visually hallucinating -- likely multifactorial given e-lyte imbalances, acute renal failure -pt does have background of depression, is on quetiapine. -follow Remains without any residual hallucinations (13) Muscle spasm: muscle spasms have resolved -continue home meds: Baclofen, tizanidine this could also impact her hallucinations (14) Hypertension: stopping beta rox, increasing her lisinopril to 20 mg a day with an additional dose on 09/02 to make the 20. will have hydralazine and clonidine PRN for bp backup (15) Chest pain: No additional chest pain and original symptoms not suggestive of acute ischemic etiology, troponin peaked at 0.09 suggesting any rise will be supply demand mismatch OR DEMAND ISCHEMIA Physical Exam 2 Vital Signs (Past 24 Hours): Last Vital Signs Temp 36.8 C 09/03/18 14:32 Pulse 68 09/03/18 14:32 Resp 16 09/03/18 14:32 BP 164/89 H 09/03/18 14:32 Pulse Ox 95 09/03/18 14:32 _ (1) Renal failure Acute renal failure type: unspecified Chronic kidney disease stage: Renal failure chronicity: acute Qualified Code(s): N17.9 - Acute kidney failure, unspecified
[2018-09-03] MEDS: PROMETHAZINE HCL 12.5 MG in SODIUM CHLORIDE 0.9% 50 ML IV PRN (18:27)
[2018-09-03] MEDS: HydrALAZINE HCL 20 MG/ML VIAL IV PRN (19:51)
[2018-09-03] MEDS: LORATADINE 10 MG TAB PO SCH (20:31)
[2018-09-03] MEDS: QUETIAPINE FUMARATE 25 MG TABLET PO SCH (20:31)
[2018-09-03] MEDS ORDERED: dilTIAZem HCL 30 MG TAB PO ONE (20:59)
[2018-09-03] MEDS ORDERED: HydrALAZINE HCL 20 MG/ML VIAL IV STA (21:18)
[2018-09-03] MEDS ORDERED: PROCHLORPERAZINE 5 MG in SYRINGE 4 ML IV ONE (22:00)
[2018-09-03] MEDS ORDERED: ALUMINUM/MAGNESIUM SUSP 18 ML, LIDOCAINE HCL VISCOUS 2% 6 ML, BARCODE IDENTIFIER 1 EA PO ONE (23:03)
[2018-09-03] MEDS ORDERED: METOPROLOL TARTRATE 1 MG/ML VIAL IV STA (23:03)
[2018-09-03] MEDS ORDERED: MoRPHine SULFATE 4 MG/ML 1 ML CARP\\VIAL IV STA (23:20)
[2018-09-04] MEDS: PROMETHAZINE HCL 12.5 MG in SODIUM CHLORIDE 0.9% 50 ML IV PRN (04:04)
[2018-09-04] MEDS: ONDANSETRON 4 MG TAB PO PRN (05:55)
[2018-09-04] MEDS: LEVOTHYROXINE SODIUM 112 MCG TABLET PO SCH (06:39)
[2018-09-04 07:26] LABS: BUN Creatinine Ratio 13.9 (10-20); Calcium 9.6 mg/dl (8.5-10.1); Creatinine Clr Calc Pharmacy 57.8 ml/min; Est GFR (African American) 85.9; Est GFR (Non-African American) 74.1; Potassium 3.5 mmol/L (3.5-5.1)
[2018-09-04] MEDS ORDERED: hydroCHLOROthiazide 25 MG TAB PO STA (08:00)
[2018-09-04] MEDS: FLUTICASONE PROPIONATE NA SPR 16 GM BTL SCH ×2 (09:07→20:01)
[2018-09-04] MEDS: FLUTICASONE HFA 220 MCG INHALER INH SCH ×2 (09:07→20:00)
[2018-09-04] MEDS: LISINOPRIL 20 MG TAB PO SCH (09:08)
[2018-09-04] MEDS: BACLOFEN 10 MG TAB PO PRN (09:08)
[2018-09-04] MEDS: LIDOCAINE 5% 1 PATCH TD SCH (09:09)
[2018-09-04] MEDS: HEPARIN SOD 5,000 UNIT/0.5 ML VIAL SQ SCH (09:10)
[2018-09-04] MEDS: OXYCODONE HCL IR 5 MG TAB (IMMEDIATE RELEASE) PO PRN ×2 (09:13→20:01)
--- NOTE | 2018-09-04 09:46 | Cardiology Progress Note ---
Date of Service September 04, 2018 Assessment & Plan (1) Acute and chronic respiratory failure with hypoxia: Improved on current regimen. (2) Bradycardia: Has resolved since discontinuing metoprolol. (3) Afib: She demonstrates paroxysms of rapid atrial fibrillation. Discussed starting low-dose carvedilol with Dr. Horowitz. (4) Right-sided heart failure: Tolerating Torsemide 10mg. Seems euvolemic at this time. Subjective The patient is resting in bed with complaints of nausea. She is concerned about her elevated blood pressure and occasional rapid ventricular response to her atrial fibrillation. Physical Exam 2 Vital Signs (Past 24 Hours): Last Vital Signs Temp 37.4 C 09/04/18 07:00 Pulse 105 H 09/04/18 07:39 Resp 18 09/04/18 07:00 BP 167/94 H 09/04/18 07:00 Pulse Ox 91 09/04/18 07:00 Physical Exam: In general is well-developed well-nourished white female lying supine in bed. HEENT exam is negative. Neck is supple with full carotid upstrokes. No obvious bruits. Jugular is pressure is flat at 90 degrees. No thyromegaly. Cardiovascular exam reveals a regular rhythm with distant heart sounds. Lungs note distant breath sounds but no rales, rhonchi or wheezes. Abdomen is soft without bruits. Extremities reveal intact radial pulses bilaterally. Trace pretibial edema is noted. Results & Data Laboratory Results Laboratory Results - last 24 hr 09/04/18 06:21 Sodium 136 Potassium 3.5 D Chloride 100 Carbon Dioxide 28 Anion Gap 8.0 BUN 11 Creatinine 0.76 Est Cr Clr Drug Dosing 57.8 Est GFR ( Amer) 85.9 Est GFR (Non-Af Amer) 74.1 BUN/Creatinine Ratio 13.9 Glucose 194 H Calcium 9.6 Diagnostic Findings hospital monitor notes paroxysms of a rapid ventricular response to atrial fibrillation.
[2018-09-04] MEDS ORDERED: CARVEDILOL 3.125 MG TAB PO ONE (09:48)
--- NOTE | 2018-09-04 10:34 | XRay Report ---
XR chest 1V portable CLINICAL HISTORY: eval for pneumonia COMPARISON STUDY: Chest radiograph August 26, 2018. FINDINGS: There are median sternotomy wires. Cardiomediastinal silhouette is stable. Linear left basi lar opacity suggest atelectasis or scarring. There is no pneumothorax or pleural effusion. There is n o consolidation to suggest pneumonia. Pulmonary vascular congestion persists. IMPRESSION: 1. Persistent pulmonary vascular congestion. 2. No consolidation. Electronically signed by: Herman Dumont M.D. 09/04/2018 10:32 AM
[2018-09-04] MEDS ORDERED: dilTIAZem HCl 5 MG/ML 5 ML VIAL IV STA (13:04)
[2018-09-04] MEDS ORDERED: dilTIAZem HCl 125 MG in DEXTROSE 5% 100 ML IV SCH (13:04)
--- NOTE | 2018-09-04 13:04 | Hospitalist Progress Note ---
Date of Service September 04, 2018 Assessment & Plan (1) Afib: -discontinued metoprolol did have a short run of A. fib in the middle of the night. Her heart rate had improved she is no longer symptoms of air hunger at night she developed nocturnal nausea over the last 2 nights with occasional vomiting. In the early afternoon of 09/04 patient developed atrial flutter/fib RVR transferred to the telemetry and started on intravenous diltiazem In the past was documented the patient did not wish to have anticoagulation for atrial fibrillation. However I did discuss this with the patient today and she is fine with that the coagulation as long as we do not use of subcutaneous injections and she would be okay with using oral medications. (2) Renal failure: Ms. Wilcox is an 78-year-old female with a history of longstanding Hypertension, SLE, GERD, Dyslipidemia, COPD, Pulmonary Hypertension, Valvular Heart Disease s/p Bioprosthetic AVR 2010, Severe TR, Hypothyroidism, Type 2 Diabetes Mellitus, Paroxysmal Atrial Fibrillation, and Nonobstructive CAD on Cardiac Catheterization 2010 who presents with 3 week history of weakness, malaise, shortness of breath. Reports 3 day history of diarrhea and poor po intake. Last loose stool was just prior to admission. Denies prolonged antibiotics, although did have one dose of azithromycin prior to dental cleaning 1 week ago. ATN from worsening diarrhea-> resolved . She has resumed her home diuretics. Demedex D/W cardio added lisinopril and increased it to 20 mg PO daily on 09/02, bradycardia has resolved (3) Hyperkalemia: Hypokalemia subsequently requiring supplementation due to demedex her potassium is 3.5 we will give an additional augmentation today (4) Dehydration: resolved (5) Hypothyroid: Last TSH in outpatient setting 2017 normal -recheck shows in normal range for tsh and T4 (6) COPD (chronic obstructive pulmonary disease): Stable on home inhalers, we feel that her shortness of breath is from her pulmonary htn -complicated by right sided heart failure Patient feels return to her baseline -on home O2 3-4L at baseline (7) Aortic valve replaced: Bioprosthetic -stable murmur is heard and felt to be stable (8) 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, chronically on oxygen (9) Acute and chronic respiratory failure with hypoxia: modest pulmonary congestion in background of right sided CHF -O2 as needed (10) Hallucination, visual: Pt had insight that she is visually hallucinating -- likely multifactorial given e-lyte imbalances, acute renal failure -pt does have background of depression, is on quetiapine. -follow Remains without any residual hallucinations (11) Muscle spasm: muscle spasms have resolved -will stop home medicines as unclear what is the origins of her nausea 09/04 (12) Hypertension: stopping beta rox, increasing her lisinopril to 20 mg a day with an additional dose on 09/02 to make the 20. instituting cardizem gtt on 09/04 (13) Chest pain: No additional chest pain and original symptoms not suggestive of acute ischemic etiology, troponin peaked at 0.09 suggesting any rise will be supply demand mismatch OR DEMAND ISCHEMIA (14) Diarrhea: Diarrhea has resolved does not appear to be bacterial or c diff Placed on immodium PRN. Subjective There is multiple visits at the bedside this morning. Early in the morning we were called as the patient was mildly tachycardic and was nauseated. She examined it sounds more like sinus tach was given antiemetics. Later in the morning about 11:00 was called in a heart rate it escalated to the 150 range. I ordered a stat EKG which I interpreted myself to be likely a flutter with rapid ventricular response. I reassessed the patient at the bedside she denies any congestive heart failure symptoms but was fatigued and continued to be nauseated. There were no currents of injury seen on EKG but there was some flattening of her lateral and inferior T waves. This is likely rate related. Patient was emergently transferred to telemetry unit diltiazem drip will be started after discussion with Dr. Roberson over the phone we will check a stat troponin at this point time and repeat in the morning. Potassium is 3.5 her magnesium was not checked today will augment both Review of Systems ROS: well nourished well developed. No double vision blurry vision No problems with speech or swallowing No palpitations, chest pain or pressure feels poorly but cannot since her tachycardia No Wheezing or dyspnea on exertion No abdominal pain has had mild nausea without vomiting or diarrhea No burning urine urine frequency or changes in color Diffuse arthralgias and myalgias No skin rashes or oral lesions No unusual bruising or bleeding No focused back pain or numbness or loss of strength No changes in memory or confusion Physical Exam 2 Vital Signs (Past 24 Hours): Last Vital Signs Temp 37.2 C 09/04/18 11:13 Pulse 121 H 09/04/18 11:13 Resp 20 09/04/18 11:13 BP 170/96 H 09/04/18 11:13 Pulse Ox 92 09/04/18 11:13 The patient appeared well nourished and normally developed. Vital signs as documented. Tachycardia Head exam is unremarkable. normocephalic, atraumatic Neck is without jugular venous distension, thyromegaly, or lymphademopathy Lungs are clear to auscultation and percussion. Cardiac exam reveals irregularly irregular tachycardic first and second heart sounds normal. Abdominal exam reveals normal bowel sounds, no masses, no organomegaly Extremities are nonedematous and both pedal pulses are present Neurologic exam is A&Ox3, no focal deficits, strength is equal bilateral Psychologically seems anxious and depressed Skin is warm Dry _ (1) Renal failure Acute renal failure type: unspecified Chronic kidney disease stage: Renal failure chronicity: acute Qualified Code(s): N17.9 - Acute kidney failure, unspecified
[2018-09-04] MEDS ORDERED: MAGNESIUM SULFATE / D5W 1 GM/100 ML BAG IV ONE (13:45)
[2018-09-04] MEDS: dilTIAZem HCl 125 MG in DEXTROSE 5% 100 ML IV SCH (13:47)
[2018-09-04] MEDS: FERROUS SULFATE 325 MG TAB PO SCH (19:36)
[2018-09-04] MEDS: TIZANIDINE HCL 4 MG TABLET PO SCH (19:36)
[2018-09-04] MEDS: DABIGATRAN ETEXILATE 75 MG CAP PO SCH (20:01)
[2018-09-04] MEDS: ACETAMINOPHEN 325 MG TAB PO PRN (20:01)
[2018-09-04] MEDS ORDERED: CARVEDILOL 3.125 MG TAB PO SCH (21:00)
[2018-09-05] MEDS: dilTIAZem HCl 125 MG in DEXTROSE 5% 100 ML IV SCH (00:54)
[2018-09-05] MEDS: LEVOTHYROXINE SODIUM 112 MCG TABLET PO SCH (06:15)
[2018-09-05 08:05] LABS: Hematocrit (blood only) 43.3 % (37-47); Hemoglobin 14.2 g/dL (12.0-16.0); Mean Corpuscular Hgb Conc 32.8 g/dL (32-36); Mean Corpuscular Volume 95.2 fL (80-100); Mean Platelet Volume 10.2 fL (7.4-10.4); Platelet Count 298 K/uL (130-400); RDW Standard Deviation 51.7 fL (36.4-46.3); Red Blood Count 4.55 M/uL (4.2-5.4); White Blood Count 11.17 K/uL (4.8-10.8)
[2018-09-05 08:07] LABS: BUN Creatinine Ratio 17.5 (10-20); Calcium 9.5 mg/dl (8.5-10.1); Creatinine Clr Calc Pharmacy 31.8 ml/min; Est GFR (African American) 41.7; Magnesium 2.4 mg/dl (1.8-2.4)
[2018-09-05] MEDS: DABIGATRAN ETEXILATE 75 MG CAP PO SCH ×2 (08:57→20:59)
[2018-09-05] MEDS: TORSEMIDE 20 MG TAB PO SCH ×2 (08:57→09:02)
[2018-09-05] MEDS: FLUTICASONE PROPIONATE NA SPR 16 GM BTL SCH ×2 (08:58→20:57)
[2018-09-05] MEDS: LIDOCAINE 5% 1 PATCH TD SCH (08:59)
[2018-09-05] MEDS: FLUTICASONE HFA 220 MCG INHALER INH SCH ×2 (08:59→20:58)
--- NOTE | 2018-09-05 09:28 | Cardiology Progress Note ---
Date of Service September 05, 2018 Assessment & Plan (1) Bradycardia: She is now tachycardic, and metoprolol will be initiated as noted below. Will continue to monitor her rate closely on telemetry. (2) Afib: She remains in atrial fibrillation with an elevated rate in the 150s at times. Will therefore add metoprolol tartrate 25 mg TID to her medication regimen in hopes of better controlling her rate. Continue Diltiazem. Continue Dabigatran for thromboembolic prophylaxis. (3) Right-sided heart failure: She had very little PO intake yesterday and reports that she was vomiting throughout the day. She was negative 3.2 L yesterday as a result, and there is a rise in her BUN/creatinine this morning. Will therefore hold today's dose of Torsemide. Continue to monitor I's&O's closely. Daily weights. Continue to monitor PRP. (4) Elevated troponin: She had a mildly elevated troponin yesterday, which appears to be secondary to demand ischemia from her rapid atrial fibrillation. She has no evidence of ACS. Patient discussed with Dr. Roberson, and the plan was made in collaboration with him. Subjective She reports that she is feeling better this morning. She was vomiting throughout the day yesterday and had very little PO intake. She does continue to feel her heart racing at times, especially when up ambulating. She reports a pressure in her chest in association with the palpitations, which resolves when her heart rate improves. She denies shortness of breath or edema. She denies syncope or presyncope. She denies abnormal bleeding such as melena, hematochezia , or hematuria. Physical Exam 2 Vital Signs (Past 24 Hours): Last Vital Signs Temp 37.2 C 09/05/18 07:07 Pulse 105 H 09/05/18 07:07 Resp 18 09/05/18 07:07 BP 98/75 L 09/05/18 07:07 Pulse Ox 90 09/05/18 07:07 Constitutional: Alert, oriented, in no acute distress HEENT: Head is atraumatic and normocephalic. EOMs intact. Sclera anicteric. Face is symmetric. No perioral cyanosis. Mucous membranes moist. Neck: Supple, no JVD Pulmonary: Normal respiratory effort, clear to auscultation bilaterally Cardiac: Irregularly irregular, normal S1 and S2, no gallops, no rubs, soft holosystolic murmur Extremities: No clubbing, cyanosis, or edema. Pulses 2+ and symmetric Abdomen: Normal bowel sounds, soft, non-tender, no abdominal mass palpated Skin: Normal skin color, turgor, and pigmentation, no rash, no skin lesions Neurological: Oriented to person, place, and time Results & Data Laboratory Results Laboratory Results WBC 11.17 K/uL (4.8-10.8) H 09/05/18 07:06 RBC 4.55 M/uL (4.2-5.4) 09/05/18 07:06 Hgb 14.2 g/dL (12.0-16.0) 09/05/18 07:06 Hct 43.3 % (37-47) 09/05/18 07:06 MCV 95.2 fL (80-100) 09/05/18 07:06 MCH 31.2 pg (25-34) 09/05/18 07:06 MCHC 32.8 g/dL (32-36) 09/05/18 07:06 RDW Std Deviation 51.7 fL (36.4-46.3) H 09/05/18 07:06 RDW Coeff of Jef 15.0 % (11.5-14.5) H 09/05/18 07:06 Plt Count 298 K/uL (130-400) 09/05/18 07:06 MPV 10.2 fL (7.4-10.4) 09/05/18 07:06 Immature Gran % (Auto) 0.1 % 08/30/18 09:16 Neut % (Auto) 71.1 % 08/30/18 09:16 Lymph % (Auto) 13.6 % 08/30/18 09:16 [place] % (Auto) 13.2 % 08/30/18 09:16 Eos % (Auto) 1.9 % 08/30/18 09:16 Baso % (Auto) 0.1 % 08/30/18 09:16 Immature Gran # (Auto) 0.01 K/uL (0.00-0.02) 08/30/18 09:16 Neut # (Auto) 4.89 K/uL (1.4-6.5) 08/30/18 09:16 Lymph # (Auto) 0.94 K/uL (1.2-3.4) L 08/30/18 09:16 [place] # (Auto) 0.91 K/uL (0.11-0.59) H 08/30/18 09:16 Eos # (Auto) 0.13 K/uL (0-0.5) 08/30/18 09:16 Baso # (Auto) 0.01 K/uL (0-0.2) 08/30/18 09:16 PT 14.0 Seconds (9.0-12.0) H 08/25/18 22:36 INR 1.4 (0.9-1.1) H 08/25/18 22:36 APTT 29.0 Seconds (21.0-31.0) 08/25/18 22:36 PTT Ratio 1.1 08/25/18 22:36 VBG pH 7.33 (7.36-7.41) L 08/25/18 22:42 VBG pCO2 56 mmHg (38-50) H 08/25/18 22:42 VBG pO2 34 mmHg 08/25/18 22:42 VBG HCO3 29 mmol/L 08/25/18 22:42 VBG O2 Saturation 61.1 % 08/25/18 22:42 VBG Base Excess 1.7 mEq/L 08/25/18 22:42 Barometric Pressure 728.3 mm/Hg 08/25/18 22:42 Sodium 136 mmol/L (136-145) 09/05/18 07:06 Potassium 3.0 mmol/L (3.5-5.1) L 09/05/18 07:06 Chloride 98 mmol/L (98-107) 09/05/18 07:06 Carbon Dioxide 30 mmol/L (21-32) 09/05/18 07:06 Anion Gap 8.0 (3-11) 09/05/18 07:06 BUN 24 mg/dl (7-18) H D 09/05/18 07:06 Creatinine 1.38 mg/dl (0.6-1.2) H D 09/05/18 07:06 Est Cr Clr Drug Dosing 31.8 ml/min 09/05/18 07:06 Est GFR ( Amer) 41.7 09/05/18 07:06 Est GFR (Non-Af Amer) 36.0 09/05/18 07:06 BUN/Creatinine Ratio 17.5 (10-20) 09/05/18 07:06 Glucose 113 mg/dl (70-99) H 09/05/18 07:06 Calcium 9.5 mg/dl (8.5-10.1) 09/05/18 07:06 Magnesium 2.4 mg/dl (1.8-2.4) 09/05/18 07:06 Total Bilirubin 0.5 mg/dl (0.2-1) 08/25/18 22:36 AST 30 U/L (15-37) 08/25/18 22:36 ALT 20 U/L (12-78) 08/25/18 22:36 Alkaline Phosphatase 51 U/L (45-117) 08/25/18 22:36 Troponin I 0.248 ng/ml (0-0.045) H* 09/04/18 14:48 NT-Pro-B Natriuret Pep 3680 pg/ml (0-1800) H 08/25/18 22:36 Total Protein 8.2 gm/dl (6.4-8.2) 08/25/18 22:36 Albumin 3.9 gm/dl (3.4-5.0) 08/25/18 22:36 Globulin 4.3 gm/dl (2.5-4.0) H 08/25/18 22:36 Albumin/Globulin Ratio 0.9 (0.9-2) 08/25/18 22:36 TSH 1.600 uIu/ml (0.300-4.500) 08/26/18 07:40 Specimen Hemolysis 08/25/18 22:36 Urine Color Dark Yellow 08/26/18 06:15 Urine Appearance Clear (Clear) 08/26/18 06:15 Urine pH 6.0 (4.5-7.5) 08/26/18 06:15 Ur Specific [place] 1.020 (1.000-1.030) 08/26/18 06:15 Urine Protein Negative (Negative) 08/26/18 06:15 Urine Glucose (UA) Negative (Negative) 08/26/18 06:15 Urine Ketones Trace (Negative) H 08/26/18 06:15 Urine Blood Negative (Negative) 08/26/18 06:15 Urine Nitrite Negative (Negative) 08/26/18 06:15 Urine Bilirubin Negative (Negative) 08/26/18 06:15 Urine Urobilinogen Negative (Negative) 08/26/18 06:15 Ur Leukocyte Esterase Trace (Negative) H 08/26/18 06:15 Urine WBC (Auto) 1-5 /hpf (0-5) 08/26/18 06:15 Urine RBC (Auto) 0-4 /hpf (0-4) 08/26/18 06:15 U Hyaline Cast (Auto) >30 /lpf (0-5) H 08/26/18 06:15 U Epithel Cells (Auto) >30 /lpf (0-5) H 08/26/18 06:15 Urine Bacteria (Auto) Negative (Negative) 08/26/18 06:15 Stl C. diff Tox B Gene TNP 08/28/18 17:55 Diagnostic Findings Telemetry monitoring: Atrial fibrillation with elevated rates in the 150s this morning.
[2018-09-05] MEDS: LISINOPRIL 20 MG TAB PO SCH (09:55)
[2018-09-05] MEDS: dilTIAZem HCl 60 MG TAB PO SCH ×4 (09:58→20:59)
[2018-09-05] MEDS: METOPROLOL TARTRATE 25 MG TAB PO SCH ×2 (14:44→20:59)
--- NOTE | 2018-09-05 15:05 | Hospitalist Progress Note ---
Date of Service September 05, 2018 Assessment & Plan (1) Afib: 09/04 patient developed atrial flutter/fib RVR transferred to the telemetry and started on intravenous diltiazem has some rate control achieved with diltiazem was transition to oral short acting diltiazem 4 times a day cardiology then added metoprolol tartrate 25 3 times daily and will continue to follow her response with heart rate control and avoidance of bradycardia In the past was documented the patient did not wish to have anticoagulation for atrial fibrillation. However I did discuss this with the patient today and she is fine with that the coagulation as long as we do not use of subcutaneous injections and she would be okay with using oral medications. Patient started on Pradaxa on the evening of 09/04 (2) Renal failure: Ms. Wilcox is an 78-year-old female with a history of longstanding Hypertension, SLE, GERD, Dyslipidemia, COPD, Pulmonary Hypertension, Valvular Heart Disease s/p Bioprosthetic AVR 2010, Severe TR, Hypothyroidism, Type 2 Diabetes Mellitus, Paroxysmal Atrial Fibrillation, and Nonobstructive CAD on Cardiac Catheterization 2010 who presents with 3 week history of weakness, malaise, shortness of breath. Reports 3 day history of diarrhea and poor po intake. Last loose stool was just prior to admission. Denies prolonged antibiotics, although did have one dose of azithromycin prior to dental cleaning 1 week ago. ATN from worsening diarrhea this has recurred with diuresis. This will be followed her Demadex has been held (3) Hyperkalemia: Hypokalemia subsequently requiring supplementation (4) Dehydration: maybe sensitive to diuretics (5) Hypothyroid: Last TSH in outpatient setting 2017 normal -recheck shows in normal range for tsh and T4 (6) COPD (chronic obstructive pulmonary disease): remains stable on home inhalers, we feel that her shortness of breath is from her pulmonary htn -complicated by right sided heart failure Patient feels return to her baseline -on home O2 3-4L at baseline (7) Aortic valve replaced: Bioprosthetic -stable murmur is heard and felt to be stable (8) 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, chronically on oxygen (9) Acute and chronic respiratory failure with hypoxia: modest pulmonary congestion in background of right sided CHF -O2 as needed (10) Hallucination, visual: Remains without any residual hallucinations (11) Muscle spasm: muscle spasms have resolved -will stop home medicines as unclear what is the origins of her nausea 09/04 (12) Hypertension: will continue to control with metoprolol and diltiazem (13) Chest pain: No additional chest pain and original symptoms not suggestive of acute ischemic etiology, troponin peaked at 0.09 suggesting any rise will be supply demand mismatch OR DEMAND ISCHEMIA (14) Diarrhea: Diarrhea has resolved does not appear to be bacterial or c diff Placed on immodium PRN. Subjective Patient feels markedly improved she still having some occasional bouts of tachycardia. Cardiology did see in the added metoprolol back in addition to the diltiazem and they also held her furosemide. Review of Systems ROS: well nourished well developed. Is much more comfortable today less short of breath no nausea and vomiting No double vision blurry vision No problems with speech or swallowing No palpitations, chest pain or pressure No Wheezing or breathing issues No abdominal pain nausea vomiting diarrhea changes in appetite or weight No burning urine urine frequency or changes in color No focal joint pain or muscle pain No skin rashes or oral lesions No unusual bruising or bleeding No focused back pain or numbness or loss of strength No changes in memory or confusion Physical Exam 2 Vital Signs (Past 24 Hours): Last Vital Signs Temp 37.1 C 09/05/18 14:43 Pulse 86 09/05/18 14:43 Resp 16 09/05/18 14:43 BP 107/70 09/05/18 14:43 Pulse Ox 94 09/05/18 14:43 The patient appeared well nourished and normally developed. Vital signs as documented. Some occasional bursts of tachycardia Head exam is unremarkable. normocephalic, atraumatic Neck is without jugular venous distension, thyromegaly, or lymphademopathy Lungs are clear to auscultation and percussion. Cardiac exam reveals irregularly irregular. First and second heart sounds normal. Abdominal exam reveals normal bowel sounds, no masses, no organomegaly Extremities are nonedematous and both pedal pulses are present Neurologic exam is A&Ox3, no focal deficits, strength is equal bilateral Psychologically seems neither anxious or depressed Skin is warm Dry without bruises or lesions _ (1) Renal failure Acute renal failure type: unspecified Chronic kidney disease stage: Renal failure chronicity: acute Qualified Code(s): N17.9 - Acute kidney failure, unspecified
[2018-09-05] MEDS: ACETAMINOPHEN 325 MG TAB PO PRN (20:57)
[2018-09-05] MEDS: OXYCODONE HCL IR 5 MG TAB (IMMEDIATE RELEASE) PO PRN (20:57)
[2018-09-06] MEDS: LEVOTHYROXINE SODIUM 112 MCG TABLET PO SCH (05:56)
[2018-09-06] MEDS: dilTIAZem HCl 60 MG TAB PO SCH ×4 (10:00→20:32)
[2018-09-06] MEDS: METOPROLOL TARTRATE 25 MG TAB PO SCH ×3 (10:01→20:32)
[2018-09-06] MEDS: FLUTICASONE HFA 220 MCG INHALER INH SCH ×2 (10:01→20:32)
[2018-09-06] MEDS: FLUTICASONE PROPIONATE NA SPR 16 GM BTL SCH ×2 (10:01→20:33)
[2018-09-06] MEDS: LIDOCAINE 5% 1 PATCH TD SCH (10:01)
[2018-09-06 10:35] LABS: Calcium 9.2 mg/dl (8.5-10.1); Creatinine Clr Calc Pharmacy 32.5 ml/min; Est GFR (African American) 42.5; Est GFR (Non-African American) 36.7; Potassium 3.1 mmol/L (3.5-5.1)
--- NOTE | 2018-09-06 10:54 | Hospitalist Progress Note ---
Date of Service September 06, 2018 Assessment & Plan (1) Afib: 09/04 patient developed atrial flutter/fib RVR transferred to the telemetry and started on intravenous diltiazem has some rate control achieved with diltiazem was transition to oral short acting diltiazem 4 times a day cardiology then added metoprolol tartrate 25 3 times daily will hopefully transition to ER versions of these meds In the past was documented the patient did not wish to have anticoagulation for atrial fibrillation. However I did discuss this with the patient today and she is fine with that the coagulation as long as we do not use of subcutaneous injections and she would be okay with using oral medications. Patient started on Pradaxa on the evening of 09/04, her renal function is appropriate but near the GFR of 30 Esau will continue to evaluate this for dose reduction if so would be 75 twice a day (2) Renal failure: Ms. Wilcox is an 78-year-old female with a history of longstanding Hypertension, SLE, GERD, Dyslipidemia, COPD, Pulmonary Hypertension, Valvular Heart Disease s/p Bioprosthetic AVR 2010, Severe TR, Hypothyroidism, Type 2 Diabetes Mellitus, Paroxysmal Atrial Fibrillation, and Nonobstructive CAD on Cardiac Catheterization 2010 who presents with 3 week history of weakness, malaise, shortness of breath. Reports 3 day history of diarrhea and poor po intake. Last loose stool was just prior to admission. Denies prolonged antibiotics, although did have one dose of azithromycin prior to dental cleaning 1 week ago. ATN from worsening diarrhea this has recurred with diuresis. This will be followed her Demadex continues to be held, Cr is stable but elevated from previous suggesting possibly new baseline with CKD 3-4 (3) Hyperkalemia: Hypokalemia subsequently requiring supplementation (4) Dehydration: maybe sensitive to diuretics (5) Hypothyroid: Last TSH in outpatient setting 2017 normal -recheck shows in normal range for tsh and T4 (6) COPD (chronic obstructive pulmonary disease): remains stable on home inhalers, we feel that her shortness of breath is from her pulmonary htn -complicated by right sided heart failure Patient feels return to her baseline is on home oxygen (7) Aortic valve replaced: Bioprosthetic -stable murmur is heard and felt to be stable (8) 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, chronically on oxygen, this is biggest issue with her volume and subsequent increased Cr with diuretics (9) Acute and chronic respiratory failure with hypoxia: modest pulmonary congestion in background of right sided CHF -O2 as needed (10) Hallucination, visual: Remains without any residual hallucinations (11) Muscle spasm: muscle spasms have resolved -will stop home medicines as unclear what is the origins of her nausea / (12) Hypertension: will continue to control with metoprolol and diltiazem (13) Chest pain: No additional chest pain and original symptoms not suggestive of acute ischemic etiology, troponin peaked at 0.09 suggesting any rise will be supply demand mismatch OR DEMAND ISCHEMIA (14) Diarrhea: Diarrhea has resolved does not appear to be bacterial or c diff Placed on immodium PRN. Subjective pt feels much improved , her heart rate remains controlled and she has no bradycardia. she is ambulating in the sams way Review of Systems ROS: well nourished well developed. No double vision blurry vision No problems with speech or swallowing No palpitations, chest pain or pressure No Wheezing or breathing issues No abdominal pain nausea vomiting diarrhea changes in appetite or weight No burning urine urine frequency or changes in color No focal joint pain or muscle pain No skin rashes or oral lesions No unusual bruising or bleeding No focused back pain or numbness or loss of strength No changes in memory or confusion Physical Exam 2 Vital Signs (Past 24 Hours): Last Vital Signs Temp 36.7 C 09/06/18 08:00 Pulse 75 09/06/18 08:00 Resp 18 09/06/18 08:00 BP 107/72 09/06/18 08:00 Pulse Ox 94 09/06/18 08:00 The patient appeared well nourished and normally developed. Vital signs as documented. Head exam is unremarkable. normocephalic, atraumatic Neck is without jugular venous distension, thyromegaly, or lymphademopathy Lungs are clear to auscultation and percussion. She does have some dyspnea with moving about her room Cardiac exam reveals rate controlled but irregularly irregular. First and second heart sounds normal. Abdominal exam reveals normal bowel sounds, no masses, no organomegaly Extremities are nonedematous and both pedal pulses are present Neurologic exam is A&Ox3, no focal deficits, strength is equal bilateral Psychologically seems neither anxious or depressed Skin is warm Dry without bruises or lesions _ (1) Renal failure Acute renal failure type: unspecified Chronic kidney disease stage: Renal failure chronicity: acute Qualified Code(s): N17.9 - Acute kidney failure, unspecified
[2018-09-06] MEDS: TORSEMIDE 20 MG TAB PO SCH (13:36)
[2018-09-06] MEDS: LISINOPRIL 20 MG TAB PO SCH (13:36)
[2018-09-06] MEDS: DABIGATRAN ETEXILATE 75 MG CAP PO SCH ×2 (13:38→20:32)
[2018-09-06] MEDS: ACETAMINOPHEN 325 MG TAB PO PRN (20:32)
[2018-09-06] MEDS: OXYCODONE HCL IR 5 MG TAB (IMMEDIATE RELEASE) PO PRN (20:33)
[2018-09-07] MEDS: LEVOTHYROXINE SODIUM 112 MCG TABLET PO SCH (06:20)
[2018-09-07 07:21] LABS: Hematocrit (blood only) 43.8 % (37-47); Hemoglobin 14.5 g/dL (12.0-16.0); Mean Corpuscular Hgb Conc 33.1 g/dL (32-36); Mean Corpuscular Volume 95.6 fL (80-100); Mean Platelet Volume 9.5 fL (7.4-10.4); Platelet Count 282 K/uL (130-400); RDW Coefficient of Variation 14.8 % (11.5-14.5); RDW Standard Deviation 51.1 fL (36.4-46.3); Red Blood Count 4.58 M/uL (4.2-5.4); White Blood Count 8.87 K/uL (4.8-10.8)
[2018-09-07 07:42] LABS: BUN Creatinine Ratio 26.9 (10-20); Creatinine Clr Calc Pharmacy 53.7 ml/min; Est GFR (African American) 78.3; Est GFR (Non-African American) 67.6; Magnesium 2.2 mg/dl (1.8-2.4); Potassium 3.3 mmol/L (3.5-5.1)
[2018-09-07 07:56] LABS: Creatinine Clr Calc Pharmacy 51.8 ml/min; Est GFR (Non-African American) 64.7
[2018-09-07] MEDS: DABIGATRAN ETEXILATE 75 MG CAP PO SCH (08:06)
[2018-09-07] MEDS: LISINOPRIL 20 MG TAB PO SCH (08:06)
[2018-09-07] MEDS: FLUTICASONE PROPIONATE NA SPR 16 GM BTL SCH (08:06)
[2018-09-07] MEDS: LIDOCAINE 5% 1 PATCH TD SCH (08:06)
[2018-09-07] MEDS: FLUTICASONE HFA 220 MCG INHALER INH SCH (08:07)
[2018-09-07] MEDS ORDERED: METOPROLOL SUCC 50MG EXT REL TAB PO SCH (09:00)
[2018-09-07] MEDS ORDERED: dilTIAZem HCL 240 MG CAPCR PO SCH (09:00)
[2018-09-07] MEDS ORDERED: POTASSIUM CHLORIDE 20 MEQ TABCR PO SCH (09:00)
[2018-09-07] MEDS: OXYCODONE HCL IR 5 MG TAB (IMMEDIATE RELEASE) PO PRN (10:32)
--- NOTE | 2018-09-07 15:29 | Discharge Summary ---
Date of Service September 07, 2018 Admission HPI Per Admitting Provider Ms. Wilcox is an 78-year-old female with a history of longstanding Hypertension , SLE, GERD, Dyslipidemia, COPD, Pulmonary Hypertension, Right-Sided CHF, Valvular Heart Disease s/p Bioprosthetic AVR 2010, Severe TR, Hypothyroidism, Type 2 Diabetes Mellitus, Paroxysmal Atrial Fibrillation, and Nonobstructive CAD on Cardiac Catheterization 2010 who presents today with 3 week history of weakness, malaise, shortness of breath. Reports 3 day history of diarrhea and poor po intake. Last loose stool was just prior to admission. Denies prolonged antibiotics, although did have one dose of azithromycin prior to dental cleaning 1 week ago. On review of outpatient records her last cardiology visit was in May 2018. At that time she was told to continue her medications including torsemide 30 mg daily. It is also noted that her dry weight is considered 164 pounds. Today she presents with approximately 187 pounds which is at least 20 pounds above her dry weight. Pt has been taking at times extra doses of her water pills, based on her weights at home including a dose of demedex yesterday. Brother is at bedside and endorses that pt is having visual hallucinations, and her speech is slower than usual. PMH as above PSxH: Cholecystectomy, Hemorrhoidectomy, S/P aortic valve replacement, Tonsillectomy, Total Hysterectomy SH: lives alone, brother (and POA) lives next door. Former smoker. No EtOH/ drugs Principal Diagnosis atrial fibrillation dehydration due to diarrhea acute kidney injury on chronic kidney disease stage 3 Discharge Exam Constitutional well developed and average body habitus Eyes no conjunctival abnormality and no scleral abnormality Neck normal visual inspection and trachea midline Respiratory normal respiratory effort; no respiratory distress Auscultation: lungs clear to auscultation bilaterally Cardiovascular Rate/Rhythm: regular rate; + abnormal rhythm Heart Sounds: + murmur Gastrointestinal (Abdomen) normal bowel sounds, soft, nontender, no hepatosplenomegaly Musculoskeletal no cyanosis or clubbing, extremities motor strength 5/5 Discharge Data Allergies Allergy/AdvReac Type Severity Reaction Status Date / Time Penicillins Allergy Severe HIVES,ANAPH Verified 08/25/18 23:07 YLAXIS shellfish derived Allergy Severe DIFFICULTY Verified 08/25/18 23:07 SWALLOWING & HIVES ezetimibe AdvReac Mild INTOLERANCE Verified 08/25/18 23:07 TO VYTORIN simvastatin AdvReac Mild INTOLERANCE Verified 08/25/18 23:07 clindamycin AdvReac Unknown upset Verified 08/27/18 12:06 stomach pravastatin AdvReac Unknown muscle Verified 08/27/18 12:06 aches rosuvastatin AdvReac Unknown muscle Verified 08/27/18 12:06 aches Consultations 08/25/18 23:31 ED Decision to Admit Stat 08/26/18 03:00 Consult Case Management - Discharge Planning Routine 08/26/18 09:13 Consult Cardiology Routine Hospital Course (1) Afib: 09/04 patient developed atrial flutter/fib RVR transferred to the telemetry and started on intravenous diltiazem has some rate control achieved with diltiazem was transition to oral short acting diltiazem 4 times a day cardiology then added metoprolol tartrate 25 were able to convert to ER version of diltiazem and metoprolol succinate successfully In the past was documented the patient did not wish to have anticoagulation for atrial fibrillation. However I did discuss this with the patient today and she is fine with that the coagulation as long as we do not use of subcutaneous injections and she would be okay with using oral medications. Patient started on Pradaxa on the evening of 09/04, but due to insurance coverage will be changed to eliquis on discharge, pt wished to avoid xarelto as did have issues in past on xarelto (2) Renal failure: Ms. Wilcox is an 78-year-old female with a history of longstanding Hypertension, SLE, GERD, Dyslipidemia, COPD, Pulmonary Hypertension, Valvular Heart Disease s/p Bioprosthetic AVR 2010, Severe TR, Hypothyroidism, Type 2 Diabetes Mellitus, Paroxysmal Atrial Fibrillation, and Nonobstructive CAD on Cardiac Catheterization 2010 who presents with 3 week history of weakness, malaise, shortness of breath. Reports 3 day history of diarrhea and poor po intake. Last loose stool was just prior to admission. Denies prolonged antibiotics, although did have one dose of azithromycin prior to dental cleaning 1 week ago. ATN from worsening diarrhea this has recurred with diuresis. 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, chronically on oxygen, this is biggest issue with her volume and subsequent increased Cr with diuretics (9) Acute and chronic respiratory failure with hypoxia: modest pulmonary congestion in background of right sided CHF -O2 as needed (10) Hallucination, visual: Remains without any residual hallucinations (11) Muscle spasm: muscle spasms have resolved - (12) Hypertension: will continue to control with metoprolol succinate and diltiazem ER (13) Chest pain: No additional chest pain and original symptoms not suggestive of acute ischemic etiology, troponin peaked at 0.09 suggesting any rise will be supply demand mismatch OR DEMAND ISCHEMIA (14) Diarrhea: Diarrhea has resolved does not appear to be bacterial or c diff Placed on immodium PRN. Total Time Total Time Spent Total Time Spent (In Minutes): greater than 30 minutes were required to prepare discharge Discharge Plan Discharge Items Patient Disposition: Home - Home Health Services Reason For Visit: CHEST PRESSURE, ARF, DEHYDRATION Discharge Diagnosis: afibrillation with variable heart rate Discharge Goals: Decrease discomfort, Diagnostic testing and Improve disease control Activity: Resume your previous activity Non-emergency contact: Primary Care Provider and Oral Therapist Call non-emergency contact if: you have any medication questions Follow-up/Referrals: Burak Solis PA-C [Physician Retail Representative] - 09/15/18 2:00 pm (Please, follow up at [facility] Cardiology Office with Burak Solis PA-C on SaturdaySeptember 15 at 2:00 pm. *This office is located in [address] of [facility] - big building [facility]. If you need to change this appointment, call the office at [phone].) Angela Barajas MD [Primary Care Provider] - 09/09/18 10:20 am (Please, follow up with Dr. Barajas on SaturdaySeptember 09 at 10:20 am. *If you need to change this appointment, call her office at [phone].) Diet: Regular and Low Sodium (2gm) Addtl Provider Instructions: please follow up with DR AL we have changed your metoprolol to extended release, added diltiazem and lisinopril plus a blood thinner We have changed your Rx from pradaxa to eliquis 5 mg twice a day the pharmacy will take back your unopened package Prescriptions: New metoprolol succinate 50 mg Tablet Extended Release 24 Hr 50 mg PO QAM Qty: 30 RF: 5 diltiazem HCl 240 mg Capsule,Extended Release 24hr 240 mg PO QAM Qty: 30 RF: 5 lisinopril 20 mg Tablet 20 mg PO QAM Qty: 30 RF: 5 dabigatran etexilate 150 mg capsule 150 mg PO BID Qty: 60 RF: 6 apixaban [Eliquis] 5 mg tablet 5 mg PO BID Qty: 60 RF: 5 Continue levothyroxine 112 mcg Tablet 112 mcg PO DAILY RF: 0 ferrous sulfate 325 mg (65 mg iron) Tablet,Delayed Release (Dr/Ec) 325 mg PO DAILY RF: 0 ipratropium-albuterol 0.5 mg-3 mg(2.5 mg base)/3 mL Solution For Nebulization 3 ml INHALATION Q4H RF: 0 potassium chloride 20 mEq Tablet Extended Release 20 meq PO BID RF: 0 torsemide 10 mg Tablet 10 mg PO DAILY RF: 0 albuterol sulfate [Ventolin HFA] 90 mcg/actuation Hfa Aerosol Inhaler 2 puff INHALATION Q4H PRN (Reason: sob) RF: 0 ondansetron HCl [Zofran] 4 mg Tablet 4 mg PO Q6H PRN (Reason: n/v) RF: 0 loratadine 10 mg Tablet 10 mg PO DAILY PRN (Reason: Allergy Symptoms) RF: 0 baclofen 10 mg Tablet 10 - 20 mg PO DAILY PRN (Reason: muscle spasms) RF: 0 quetiapine 25 mg Tablet 12.5 mg PO Q2D RF: 0 fluticasone [Flovent HFA] 220 mcg/actuation Hfa Aerosol Inhaler 1 puff INHALATION BID RF: 0 Discontinued azithromycin 500 mg Tablet 500 mg PO DIRECTED RF: 0 acetaminophen [Tylenol] 325 mg Tablet 650 mg PO Q6H PRN (Reason: pain/fever) RF: 0 metoprolol tartrate 50 mg Tablet 50 mg PO BID RF: 0 magnesium 250 mg Tablet 500 mg PO BID RF: 0 naproxen 500 mg Tablet 500 mg PO Q12H PRN (Reason: Pain) RF: 0 Stand-Alone Forms: [facility] Discharge Orders: Discharge Order (Routine); Ordered 09/07/18 Ordered By: Cachorro Horowitz Admission Data Admit Date/Time: 08/26/18 02:14 Attending Provider: Cachorro Horowitz Admit Provider: Gretel Ellis Primary Care Provider: Angela Barajas Other Providers: Home,Nursing Agency ; Rashid Schultz IRB Approved Study, [place] ; Blair Matson ; Anthony Eller Service: Telemetry Other Interventions: Discharge Summary Assessment (RN) Last Done: 09/07/18 13:00 DC Date/Time DO NOT enter until pt leaves facility: 09/07/18 14:55
== END 2018-09-07 14:55 | disposition home health service (06) | DRG 682 ==
LOC: ED 22:07 → SUATTDRO 08-26 02:14 → 2S 08-26 02:14 → 2W 09-01 15:08 → 2S 09-04 11:58